=== PATIENT | female | born 1955 | race Caucasian/White ===

== ENCOUNTER 2020-12-07 07:15 | Emergency (ER) | payer MEDICARE, OTHER, SELFPAY ==
[2020-12-07] VITALS (21 sets, daily range): BP systolic 121–186; BP diastolic 56–89; PULSE 69–89; RESP 12–40; TEMP 36.6; O2SAT 92–100; BMI 43.1
--- NOTE | 2020-12-07 08:04 | ED_ITS ---
HPI - Abdominal Pain General Chief Complaint: Abdominal Pain Stated Complaint: stomach/side pain and nausea Time Seen by Provider: 12/07/20 07:46 Source: patient and family Mode of arrival: Ambulatory Limitations: no limitations History of Present Illness HPI narrative: Patient is a 65-year-old female who presents with ongoing abdominal pain history of diverticulitis with colectomy, for about the last 2 weeks. She says it is the pain is more of a cramp and spasm on the right side but she is persistently nauseated. She says the nausea is significantly worse in the morning and gradually gets better in the afternoon however yesterday she was nauseous all day. She says she was previously able to keep down some broth but yesterday she really was not able to eat or drink anything. She has not taken anything for pain says it is mostly just an occasional spasm for which she gets hot shower for. She denies any fever or chills. This does not feel like his her prior episodes of diverticulitis MD complaint: abdominal pain Onset (ago): week(s) (2) Pain Consistency: constant Severity scale (1-10): 6 Radiation: none Migration to: no migration Relieving factors: other (Hot shower) Related Data Previous Rx's Medication Instructions Recorded lorazepam 1 mg PO BID PRN #7 tab 12/07/20 metoclopramide HCl 10 mg PO Q6H PRN #20 tab 12/07/20 Allergies Allergy/AdvReac Type Severity Reaction Status Date / Time No Known Drug Allergies Allergy Verified 12/07/20 08:24 Review of Systems Review of Systems Narrative: GENERAL: Denies chills, fatigue, malaise, fever, sweats, travel HEENT: Denies sinus pain, ear pain, sore throat, difficulty swallowing, neck pain RESPIRATORY: Denies dyspnea, cough, wheezing, hemoptysis, sputum. CARDIOVASCULAR: Denies chest pain, palpitations, orthopnea, edema GASTROINTESTINAL: See HPI : Denies dysuria, frequency, incontinence, hematuria, urinary retention, flank pain. MUSCULOSKELETAL: Denies weakness, joint pain, or bony pain SKIN: No rash, no erythema, no pruritus NEUROLOGIC: Denies weakness, dizziness, headache, numbness, change in speech, confusion PSYCHIATRIC: No concerning psychosocial issues. 12 point review of systems is negative except for those stated above and HPI Patient History Medical History Diverticulitis Social History Smoking Status: Never smoker Smoking Status: Never smoker Substance Use Type: does not use Exam Initial Vital Signs Initial Vital Signs: Vital Signs Temperature 97.9 F 12/07/20 07:27 Pulse Rate 76 12/07/20 07:27 Respiratory Rate 18 12/07/20 07:27 Blood Pressure 179/89 H 12/07/20 07:27 Pulse Oximetry 98 12/07/20 07:27 GENERAL: Alert 65-year-old female appears uncomfortable, BMI 43 HEENT: Head atraumatic,EOMI, pupils reactive, face symmetric, moist mucous membranes CARDIOVASCULAR: Regular rate and rhythm without murmurs, rubs or gallops. RESPIRATORY: Breath sounds equal bilaterally, no wheezes rales or rhonchi. ABDOMEN: Soft, mild tenderness right lower and upper negative EXTREMITIES: Normal range of motion, no clubbing or edema. Neurovascularly intact NEUROLOGICAL: Alert and oriented x4.Normal gait and speech. SKIN: Warm, dry, no laceration, no petechiae, no rashes or lesions. Course Orders Ordered: ED Orders 12/07/20 10:08 US abdomen limited Stat 12/07/20 12:30 COVID19 - ADMIT ([employer] swab/PCR) Stat Discontinued Medications Sodium Chloride (Normal Saline 0.9%) 1,000 mls @ 1,000 mls/hr IV BOLUS ONE Stop: 12/07/20 09:04 Last Infusion: 12/07/20 12:12 Dose: 0 mls/hr Documented by: Admin: 12/07/20 08:24 Dose: 1,000 mls/hr Documented by: ISRAEL Lorazepam (Lorazepam 2 Mg/Ml Inj) 1 mg IV NOW ONE Stop: 12/07/20 12:14 Last Admin: 12/07/20 12:25 Dose: 1 mg Documented by: PRASHANT Metoclopramide HCl (Metoclopramide 10 Mg/2 Ml Inj) 10 mg IV NOW ONE Stop: 12/07/20 12:00 Last Admin: 12/07/20 12:25 Dose: 10 mg Documented by: PRASHANT Ondansetron HCl (Ondansetron 4 Mg/2 Ml Inj) 4 mg IV NOW ONE Stop: 12/07/20 08:06 Last Admin: 12/07/20 08:24 Dose: 4 mg Documented by: ISRAEL Ondansetron HCl (Ondansetron 4 Mg/2 Ml Inj) 4 mg IV NOW ONE Stop: 12/07/20 10:08 Last Admin: 12/07/20 10:35 Dose: 4 mg Documented by: ISRAEL Pantoprazole Sodium (Pantoprazole 40 Mg Vial) 40 mg IV NOW ONE Stop: 12/07/20 10:08 Last Admin: 12/07/20 10:35 Dose: 40 mg Documented by: ISRAEL Vital Signs Vital signs: Vital Signs - 8 hr 12/07/20 10:30 12/07/20 10:32 12/07/20 11:00 Pulse Rate 78 76 70 Respiratory Rate 40 H 21 17 Blood Pressure 143/62 H Pulse Oximetry 97 94 96 12/07/20 11:30 12/07/20 11:52 12/07/20 12:00 Pulse Rate 71 74 89 Respiratory Rate 13 27 H 26 H Blood Pressure 186/79 H Pulse Oximetry 100 100 99 12/07/20 12:30 12/07/20 12:47 12/07/20 13:00 Pulse Rate 82 83 72 Respiratory Rate 17 Blood Pressure 129/66 121/56 L Pulse Oximetry 94 97 92 12/07/20 13:30 12/07/20 14:00 12/07/20 14:30 Pulse Rate 86 70 75 Respiratory Rate Blood Pressure 129/64 123/58 L 123/62 Pulse Oximetry 98 97 97 MDM - Abdominal Pain Lab Data Attestation: I reviewed the patient's lab results. Result diagrams: 12/07/20 07:55 12/07/20 07:55 Labs: Lab Results 12/07/20 12/07/20 12/07/20 Range/Units 07:55 07:55 12:30 WBC 13.9 H (4.5-11.0) X10^3/uL RBC 4.78 (4.0-5.2) X10^6/uL Hgb 13.9 (12.0-16.0) g/dL Hct 41.9 (36-46) % MCV 87.7 (80-100) fL MCH 29.2 (26-34) PG MCHC 33.2 (30-36) % RDW 14.0 (11.6-14.8) % Plt Count 251 (150-400) X10^3/uL Neut % (Auto) 50.7 (50-75) % Lymph % (Auto) 39.8 (25-40) % Maverick % (Auto) 7.1 (3-14) % Eos % (Auto) 1.4 L (2-4) % Baso % (Auto) 1.0 (0-2) % Neut # (Auto) 7000 (5415-5057) /uL Lymph # (Auto) 5500 H (6890-0335) /uL Maverick # (Auto) 1000 H (0-900) /uL Eos # (Auto) 200 (0-450) /uL Baso # (Auto) 100 (0-100) /uL Sodium 137 (137-145) mmol/L Potassium 4.2 (3.4-5.1) mmol/L Chloride 102 (98-107) mmol/L Carbon Dioxide 27 (22-32) mmol/L BUN 23 H (7-17) mg/dL Creatinine 0.90 (0.52-1.04) mg/dL Estimated GFR > 60.0 (>60) mL/min BUN/Creatinine Ratio 25.6 H (6-22) Glucose 139 H (80-110) mg/dL Calcium 9.5 (8.4-10.2) mg/dL Total Bilirubin 1.0 (0.2-1.3) mg/dL AST 34 (14-36) IU/L ALT 25 (<35) IU/L Alkaline Phosphatase 65 (38-126) U/L Total Protein 7.9 (6.3-8.2) g/dL Albumin 4.5 (3.5-5.0) g/dL Globulin 3.4 (1.7-4.1) g/dL Albumin/Globulin Ratio 1.3 (1.0-2.8) Lipase 181 (23-300) U/L SARS-CoV-2 (PCR) Negative (Negative) Point of care testing: Urine Dip Bedside Urine Glucose Negative Bedside Urine Bilirubin - Negative Bedside Urine Ketone +/- 5 Urine Specific [place] 1.010 Bedside Urine Occult Blood - Negative Bedside Urine pH 6.0 Bedside Urine Protein - Negative Bedside Urine Urobilinogen +/- 1mg Bedside Urine Nitrite - Negative Bedside Urine Leukocytes - Negative Esterase Imaging Data CT scan - abdomen/pelvis: Radiologist's Impression: PROCEDURE: CT ABDOMEN PELVIS W CON INDICATIONS: right sided pain and nausea TECHNIQUE: After the administration of intravenous contrast, 5 mm thick sections acquired from the diaphragm to the symphysis. 5 mm coronal and sagittal reformats were acquired. For radiation dose reduction, the following was used: automated exposure control, adjustment of mA and/or kV according to patient size. COMPARISON: None. FINDINGS: Image quality: Excellent. ABDOMEN: Lung bases: Lung bases are clear. Heart size is normal. There is a small hiatal hernia. Solid organs: There is diffuse hypoattenuation of the liver compatible with fa tty infiltration. The gallbladder appears within normal limits without calcified gallstones. Biliary system is non-dilated. Pancreas enhances normally. No peripancreatic fat stranding or fluid collections. No pancreatic duct dilatation. The spleen is normal in size. There is nodular thickening of the left adrenal gland measuring up to 1.4 cm. Kidneys demonstrate no hydronephrosis. Multiple bilateral renal cysts are demonstrated. Peritoneum and bowel: Bowel loops demonstrate normal wall thickness and caliber. The appendix is not discretely visualized but there are no pericecal inflammatory changes to suggest appendicitis. There is colonic diverticulosis without acute diverticuli tis. No free fluid or air. Nodes and vessels: No retroperitoneal or mesenteric adenopathy by size criteria. Aorta and inferior vena cava are normal in size. Miscellaneous: No ventral hernias. PELVIS: Genitourinary: Bladder wall thickness is normal. The uterus and ovaries appear within normal size limits. Miscellaneous: No inguinal hernias or adenopathy. Bones: There are diffuse numerous small sclerotic foci throughout the visualized osseous structures. No vertebral body compression fractures. IMPRESSION: 1. No definite acute intra-abdominal abnormality to correlate with patient's right upper quadrant pain. 2. Numerous diffuse small sclerotic foci throughout the visualized osseous structures. The findings likely represent osteopoikilosis versus metastatic disease. Recommend correlation clinically and further evaluation with a bone scan if clinically in dicated. Dictated by: Giovanni Delgado M.D. on 12/07/2020 at 9:39 US - abdomen: Radiologist's Impression: PROCEDURE: US ABDOMEN LIMITED INDICATIONS: RIGHT UPPER QUADRANT PAIN TECHNIQUE: Real-time focused scanning was performed of the abdomen, with image documentation. COMPARISON: [facility], CT, CT ABDOMEN PELVIS W CON, 12/07/2020, 8:56. FINDINGS: The liver demonstrates normal size. The liver demonstrates generalized moderately increased echogenicity. This decreases ultrasound sensitivity for detection of hepatic masses. No findings of gallstones or sludge are seen. The gallbladder wall is not th ickened, measuring 3 mm or less. Apparent gallbladder wall adenomyomatosis can be seen. No specific pericholecystic fluid is seen. The sonographic Mead sign is negative. There is no biliary dilatation, the common bile duct measures 7 mm. No significant pancreatic abnormality is seen on these images. The right kidney demonstrates multiple cysts, with the largest seen along the mid kidney anteriorly measuring up to 8.5 cm. IMPRESSION: The gallbladder demonstrates a normal sonographic appearance. No biliary dilatation is seen. Apparent gallbladder wall adenomyomatosis is incidentally noted. Right renal cysts are incidentally noted. Dictated by: Jacob Currie M.D. on 12/07/2020 at 9:51 MDM Narrative Medical decision making narrative: The patient is having persistent dry heaving she is vomiting up some bile. states that she has had episodes of this cyclic vomiting but it has been about 4-5 be years. She said previously she has gotten Ativan. Abdominal CT and ultrasound are essentially negative blood work is overall reassuring for mild leukocytosis. She is given Ativan and Reglan and slept for quite a bit. Afterward she tolerated fluids and felt significantly better. At this time I will discharge her home with this she tablets of Ativan and Reglan and see how she does. If symptoms worsen then she will return to the ED Discharge Plan Departure Patient Disposition: Home Clinical Impression: Cyclic vomiting syndrome Instructions: DI for Abdominal Pain-Adult, DI for Vomiting -- Adult Activity Restrictions/Additional Instructions: *You have been diagnosed with cyclic vomiting *What to do: At this time I recommend he follow up with her primary care provider. He may require further testing. *Continue to take medications as directed Ativan 1 mg every 12 hours only if needed for anxiety or severe spasm Reglan 10 mg every 6 hours if needed for nausea or vomiting *Follow up with your primary care provider in 2-3 days *Return to ER if you should have worsening abdominal pain, inability to tolerate fluids or any new, worsening or concerning symptoms Prescriptions: New lorazepam 1 mg tablet 1 mg PO BID PRN (Reason: nausea and vomiting) Qty: 7 RF: 0 metoclopramide HCl 10 mg tablet 10 mg PO Q6H PRN (Reason: nausea and vomiting) Qty: 20 RF: 0 Referrals: Jordyn Cook FNP-BC [Primary Care Provider] -
[2020-12-07 08:11] LABS: Add Manual Diff / Slide Review NO; Basophils Absolute Auto 100 /uL (0-100); Eosinophils Absolute Auto 200 /uL (0-450); Eosinophils Percent Auto 1.4 % (2-4); Hematocrit 41.9 % (36-46); Hemoglobin 13.9 g/dL (12.0-16.0); Lymphocytes Absolute Auto 5500 /uL (1100-4500); Lymphocytes Percent Auto 39.8 % (25-40); Mean Corpuscular HGB Conc 33.2 % (30-36); Mean Corpuscular Hemoglobin 29.2 PG (26-34); Mean Corpuscular Volume 87.7 fL (80-100); Monocytes Absolute Auto 1000 /uL (0-900); Monocytes Percent Auto 7.1 % (3-14); Neutrophils Absolute Auto 7000 /uL (1500-7000); Neutrophils Percent Auto 50.7 % (50-75); Platelet Count 251 X10^3/uL (150-400); Red Blood Cell Count 4.78 X10^6/uL (4.0-5.2); White Blood Cell Count 13.9 X10^3/uL (4.5-11.0)
[2020-12-07] MEDS: SODIUM CHLORIDE 0.9% 1,000 ML 1000 ML IV (08:24)
[2020-12-07] MEDS: ONDANSETRON 4 MG/2 ML INJ IV ×2 (08:24→10:35)
[2020-12-07 08:31] LABS: Alanine Aminotransferase 25 IU/L (<35); Albumin 4.5 g/dL (3.5-5.0); Albumin Globulin Ratio 1.3 (1.0-2.8); Alkaline Phosphatase 65 U/L (38-126); Aspartate Aminotransferase 34 IU/L (14-36); BUN Creatinine Ratio 25.6 (6-22); Blood Urea Nitrogen 23 mg/dL (7-17); Calcium 9.5 mg/dL (8.4-10.2); Carbon Dioxide 27 mmol/L (22-32); Chloride 102 mmol/L (98-107); Estimated Glomerular Filt Rate > 60.0 mL/min (>60); Globulin 3.4 g/dL (1.7-4.1); Glucose 139 mg/dL (80-110); Lipase 181 U/L (23-300); Potassium 4.2 mmol/L (3.4-5.1); Sodium 137 mmol/L (137-145); Total Protein 7.9 g/dL (6.3-8.2)
[2020-12-07 08:42] LABS: HEMOLYSIS 108 (0-50)
--- NOTE | 2020-12-07 10:08 | DI.US.S_ITS ---
PROCEDURE: US ABDOMEN LIMITED INDICATIONS: RIGHT UPPER QUADRANT PAIN TECHNIQUE: Real-time focused scanning was performed of the abdomen, with image documentation. COMPARISON: [facility], CT, CT ABDOMEN PELVIS W CON, 12/07/2020, 8:56. FINDINGS: The liver demonstrates normal size. The liver demonstrates generalized moderately increased echogenicity. This decreases ultrasound sensitivity for detection of hepatic masses. No findings of gallstones or sludge are seen. The gallbladder wall is not thickened, measuring 3 mm or less. Apparent gallbladder wall adenomyomatosis can be seen. No specific pericholecystic fluid is seen. The sonographic Mead sign is negative. There is no biliary dilatation, the common bile duct measures 7 mm. No significant pancreatic abnormality is seen on these images. The right kidney demonstrates multiple cysts, with the largest seen along the mid kidney anteriorly measuring up to 8.5 cm. IMPRESSION: The gallbladder demonstrates a normal sonographic appearance. No biliary dilatation is seen. Apparent gallbladder wall adenomyomatosis is incidentally noted. Right renal cysts are incidentally noted. Dictated by: Jacob Currie M.D. on 12/07/2020 at 9:51 Approved by: Jacob Currie M.D. on 12/07/2020 at 9:53
[2020-12-07] MEDS: PANTOPRAZOLE 40 MG VIAL IV (10:35)
[2020-12-07] MEDS: METOCLOPRAMIDE 10 MG/2 ML INJ IV (12:25)
[2020-12-07] MEDS: LORazepam 2 MG/ML INJ 1 MG IV (12:25)
[2020-12-07 13:29] LABS: COVID19 - ADMIT (NP swab/PCR) Negative (Negative)
== END 2020-12-07 15:20 | disposition home or self-care (01) ==
PROVIDERS: Emergency Provider Emergency Medicine; PCP Nurse Practitioner Family
DX: R11.15 Cyclical vomiting syndrome unrelated to migraine (principal); R10.11 Right upper quadrant pain; R11.0 Nausea
CPT/HCPCS: 36415; 74177; 76705; 80053; 81003; 83690; 85025; 87635; 96361; 96374; 96375; 96376; 99284; C9803; C9113; J2060; J2405; J2765

== ENCOUNTER 2020-12-09 09:44 | Emergency (ER) | payer MEDICARE, OTHER, SELFPAY ==
[2020-12-09] VITALS (25 sets, daily range): BP systolic 102–205; BP diastolic 52–112; PULSE 66–91; RESP 13–28; TEMP 37; O2SAT 93–100; BMI 43.1
[2020-12-09 10:12] LABS: Add Manual Diff / Slide Review NO; Basophils Absolute Auto 100 /uL (0-100); Basophils Percent Auto 1.1 % (0-2); Eosinophils Absolute Auto 0 /uL (0-450); Eosinophils Percent Auto 0.4 % (2-4); Hematocrit 41.1 % (36-46); Hemoglobin 13.5 g/dL (12.0-16.0); Lymphocytes Absolute Auto 5500 /uL (1100-4500); Lymphocytes Percent Auto 45.4 % (25-40); Mean Corpuscular HGB Conc 32.8 % (30-36); Mean Corpuscular Hemoglobin 28.7 PG (26-34); Mean Corpuscular Volume 87.4 fL (80-100); Monocytes Absolute Auto 700 /uL (0-900); Neutrophils Absolute Auto 5700 /uL (1500-7000); Neutrophils Percent Auto 47.1 % (50-75); Platelet Count 259 X10^3/uL (150-400); Red Cell Distribution Width 13.7 % (11.6-14.8); White Blood Cell Count 12.1 X10^3/uL (4.5-11.0)
[2020-12-09 10:18] LABS: INR 1.1 (0.9-1.3); Prothrombin Time 12.2 SECONDS (10.1-12.7)
[2020-12-09 10:21] LABS: PTT Partial Thromboplastin Tim 31 SECONDS (26.4-36.2)
[2020-12-09 10:22] LABS: Alanine Aminotransferase 23 IU/L (<35); Albumin 4.2 g/dL (3.5-5.0); Albumin Globulin Ratio 1.3 (1.0-2.8); Alkaline Phosphatase 72 U/L (38-126); Aspartate Aminotransferase 28 IU/L (14-36); BUN Creatinine Ratio 31.1 (6-22); Bilirubin Total 0.7 mg/dL (0.2-1.3); Blood Urea Nitrogen 23 mg/dL (7-17); Calcium 9.7 mg/dL (8.4-10.2); Carbon Dioxide 27 mmol/L (22-32); Chloride 102 mmol/L (98-107); Estimated Glomerular Filt Rate > 60.0 mL/min (>60); Globulin 3.2 g/dL (1.7-4.1); Glucose 138 mg/dL (80-110); HEMOLYSIS < 15 (0-50); Lipase 196 U/L (23-300); Potassium 3.4 mmol/L (3.4-5.1); Sodium 138 mmol/L (137-145); Total Protein 7.4 g/dL (6.3-8.2)
--- NOTE | 2020-12-09 10:35 | ED_ITS ---
HPI - Abdominal Pain General Chief Complaint: Abdominal Pain Stated Complaint: vomitting Time Seen by Provider: 12/09/20 10:34 Source: patient, family () and old records reviewed Mode of arrival: Ambulatory Limitations: no limitations History of Present Illness HPI narrative: This is a 65-year-old female comes emergency department with what they describe as cyclic vomiting history. Patient has had episodes in the past and last for 5 years. She was seen here most recently on the . Patient her states she started having symptoms about a week ago, last she started having emesis abdominal pain throughout the entire day and was seen here on Thursday. They states that Ativan and Reglan often or very helpful for her symptoms. She was discharged home and half tablet of Ativan yesterday, Thursday at 10:00 a.m. and 3:00 p.m. and was able to tolerate orals. This morning she started feel more nauseated daily did half tablet states they probably should have been a full tablet and she began to have increasing emesis and abdominal pain. Patient describes her pain as generalized. She states it is in the typical pattern. She has not any fevers or chills. She has had emesis with bi le. She denies any hematemesis. She states she has not had a bowel movement in the last day or 2 but has been passing gas. She did state that she was constipated several days before, took Metamucil and had a good bowel movement. She has not had any new urinary symptoms such as dysuria, frequency or urgency but has noted that her urine output has been decreased. Patient does take lisinopril an additional medication for hypertension but states she has not been able to take it for the last several days. Patient has had a colon resection in 1997 for a sigmoid diverticulitis which they state was done more because she was an episode of cyclic vomiting and not because there was perforation or severe disease. She has also had hernia repair with mesh. Patient denies any allergies to medications. No tobacco, alcohol or illicit. He states she used to use marijuana 5 or 6 years ago but no longer uses this. Patient's primary care physician is Jordyn Cook. She is accompanied by her . Related Data Previous Rx's Medication Instructions Recorded lorazepam 1 mg PO BID PRN #7 tab 12/07/20 metoclopramide HCl 10 mg PO Q6H PRN #20 tab 12/07/20 lorazepam 1 mg PO TID PRN #10 tab 12/09/20 Allergies Allergy/AdvReac Type Severity Reaction Status Date / Time No Known Drug Allergies Allergy Verified 12/09/20 09:52 Review of Systems Review of Systems ROS Unobtainable: All systems reviewed & are unremarkable except as noted in HPI and below Patient History Medical History (Updated 12/09/20 @ 11:00 by Lucy Sumner DO) Diverticulitis Surgical History (Updated 12/09/20 @ 10:52 by Lucy Sumner DO) H/O hernia repair History of colectomy Social History Smoking Status: Never smoker Smoking Status: Never smoker alcohol intake frequency: 0-2 drinks per day Substance Use Type: does not use Exam Narrative Exam Narrative: GENERAL: Alert and oriented x three, female with a BMI of 43 who does not appear to feel well. HEENT: Head normocephalic, atraumatic, EOMI, pupils reactive, face symmetric, moist mucous membranes NECK: Supple, full range of motion CARDIOVASCULAR: Regular rate and rhythm without murmurs, rubs or gallops. RESPIRATORY: Breath sounds equal bilaterally, no wheezes rales or rhonchi. ABDOMEN: Soft, nontender. Normoactive bowel sounds all 4 quadrants. No guarding or rebound, rigidity, no mass, non-distended. : No CVA tenderness bilaterally. EXTREMITIES: Normal range of motion, no edema. 2+ pulses bilaterally. Neurovascularly intact NEUROLOGICAL: Cranial nerves II through XII grossly intact. Moving all extremities SKIN: Warm, dry, no petechiae, no rashes or lesions. Initial Vital Signs Initial Vital Signs: Vital Signs Temperature 98.6 F 12/09/20 09:50 Pulse Rate 79 12/09/20 09:50 Respiratory Rate 16 12/09/20 09:50 Blood Pressure 144/74 H 12/09/20 09:50 Pulse Oximetry 100 12/09/20 09:50 Course Orders Ordered: ED Orders 12/09/20 10:05 Complete Blood Count AUTO DIFF Stat Comprehensive Metabolic Panel Stat Lipase Stat Partial Thromboplastin Time Stat Prothrombin Time INR Stat Troponin I Stat EKG-12 Lead Stat 12/09/20 14:00 Urine Culture Stat Urine Microscopic Stat 12/09/20 15:02 COVID19 - ADMIT (INFECTIOUS DISEASES PHYSICIAN swab/PCR) Stat 12/09/20 15:03 XR acute abdomen series Stat Discontinued Medications Haloperidol (Haloperidol 5 Mg/Ml Vial) 2 mg IV NOW ONE Stop: 12/09/20 15:02 Last Admin: 12/09/20 15:12 Dose: 2 mg Documented by: KIMBERLY Hydralazine HCl (Hydralazine 20 Mg/Ml Vial) 10 mg IV NOW ONE Stop: 12/09/20 13:34 Last Admin: 12/09/20 13:41 Dose: 10 mg Documented by: KIMBERLY Sodium Chloride (Normal Saline 0.9%) 1,000 mls @ 1,000 mls/hr IV BOLUS ONE Stop: 12/09/20 11:46 Last Infusion: 12/09/20 15:13 Dose: 0 mls/hr Documented by: Admin: 12/09/20 10:56 Dose: 1,000 mls/hr Documented by: MARTINEZ Ketorolac Tromethamine (Ketorolac 30 Mg/Ml Vial) 15 mg IV NOW ONE Stop: 12/09/20 10:49 Last Admin: 12/09/20 10:55 Dose: 15 mg Documented by: MARTINEZ Lorazepam (Lorazepam 2 Mg/Ml Inj) 1 mg IV NOW ONE Stop: 12/09/20 10:48 Last Admin: 12/09/20 10:54 Dose: 1 mg Documented by: MARTINEZ Metoclopramide HCl (Metoclopramide 10 Mg/2 Ml Inj) 10 mg IV NOW ONE Stop: 12/09/20 10:48 Last Admin: 12/09/20 10:55 Dose: 10 mg Documented by: MARTINEZ Ondansetron HCl (Ondansetron 4 Mg/2 Ml Inj) 4 mg IV NOW ONE Stop: 12/09/20 13:33 Last Admin: 12/09/20 13:41 Dose: 4 mg Documented by: KIMBERLY Pantoprazole Sodium (Pantoprazole 40 Mg Vial) 40 mg IV NOW ONE Stop: 12/09/20 10:48 Last Admin: 12/09/20 10:55 Dose: 40 mg Documented by: MARTINEZ Reevaluation(s) Reevaluation #1: Patient is not actively vomiting. Her O2 did drop to the upper 80s after all of her medications. She does have a history of obstructive sleep apnea and uses a CPAP at home. She does not use oxygen typically but they state that this also happened last time she was here and received medications as well. Plan to continue to monitor patient and will re-evaluate she is sleepy but arouses easily to verbal stimuli. We also reviewed her labs as well as CT imaging from the 07 of December. Time: 11:37 Reevaluation #2: Patient ambulated to bathroom but has not had continued vomiting. She does continue to feel nauseated. Zofran IV and will recheck. Per patient has a few tablets of ativan at home. Time: 13:43 Reevaluation #3: Patient tried several ice chips and developed nausea and vomit ing again. Patient EKG was reviewed no prolonged QT and haldol 2mg IV ordered. Time: 15:04 Additional Reevaluation(s): 1716-patient was able tolerate some oral fluids here in the department. She feels comfortable returning home at this time. Patient only has 2 or 3 tablets of Ativan left so was given additional short-term p rescription. Discussed to slowly advance her diet and she has been well hydrated here in the department they can start to advance more tomorrow. Vital Signs Vital signs: Vital Signs - 8 hr 12/09/20 11:00 12/09/20 11:30 12/09/20 12:00 Pulse Rate 73 70 66 Respiratory Rate 15 26 H 17 Blood Pressure Pulse Oximetry 99 96 100 12/09/20 12:30 12/09/20 12:31 12/09/20 13:00 Pulse Rate 66 72 79 Respiratory Rate 18 13 16 Blood Pressure 173/79 H 196/94 H Pulse Oximetry 98 97 100 12/09/20 13:31 12/09/20 13:41 12/09/20 13:46 Pulse Rate 80 91 H 75 Respiratory Rate 16 Blood Pressure 196/94 H 115/55 L Pulse Oximetry 98 98 12/09/20 14:00 12/09/20 14:30 12/09/20 14:58 Pulse Rate 83 86 77 Respiratory Rate 27 H 20 Blood Pressure 117/55 L 121/57 L 121/57 L Pulse Oximetry 96 99 12/09/20 15:00 12/09/20 15:30 12/09/20 15:34 Pulse Rate 73 82 78 Respiratory Rate 14 19 17 Blood Pressure 139/59 L 130/62 Pulse Oximetry 99 96 97 12/09/20 16:00 12/09/20 16:30 12/09/20 16:31 Pulse Rate 86 91 H 89 Respiratory Rate 23 28 H 17 Blood Pressure 120/55 L 102/52 L Pulse Oximetry 93 95 96 12/09/20 17:00 12/09/20 17:09 12/09/20 17:35 Pulse Rate 86 86 83 Respiratory Rate 16 18 16 Blood Pressure 111/55 L 111/55 L Pulse Oximetry 95 93 96 MDM - Abdominal Pain Lab Data Attestation: I reviewed the patient's lab results. Result diagrams: 12/09/20 10:05 12/09/20 10:05 Labs: Lab Results 12/09/20 12/09/20 12/09/20 Range/Units 10:05 10:05 10:05 WBC 12.1 H (4.5-11.0) X10^3/uL RBC 4.70 (4.0-5.2) X10^6/uL Hgb 13.5 (12.0-16.0) g/dL Hct 41.1 (36-46) % MCV 87.4 (80-100) fL MCH 28.7 (26-34) PG MCHC 32.8 (30-36) % RDW 13.7 (11.6-14.8) % Plt Count 259 (150-400) X10^3/uL Neut % (Auto) 47.1 L (50-75) % Lymph % (Auto) 45.4 H (25-40) % [place] % (Auto) 6.0 (3-14) % Eos % (Auto) 0.4 L (2-4) % Baso % (Auto) 1.1 (0-2) % Neut # (Auto) 5700 (1868-8898) /uL Lymph # (Auto) 5500 H (2128-2115) /uL [place] # (Auto) 700 (0-900) /uL Eos # (Auto) 0 (0-450) /uL Baso # (Auto) 100 (0-100) /uL PT 12.2 (10.1-12.7) SECONDS INR 1.1 (0.9-1.3) APTT 31 (26.4-36.2) SECONDS Sodium 138 (137-145) mmol/L Potassium 3.4 (3.4-5.1) mmol/L Chloride 102 (98-107) mmol/L Carbon Dioxide 27 (22-32) mmol/L BUN 23 H (7-17) mg/dL Creatinine 0.74 (0.52-1.04) mg/dL Estimated GFR > 60.0 (>60) mL/min BUN/Creatinine Ratio 31.1 H (6-22) Glucose 138 H (80-110) mg/dL Calcium 9.7 (8.4-10.2) mg/dL Total Bilirubin 0.7 (0.2-1.3) mg/dL AST 28 (14-36) IU/L ALT 23 (<35) IU/L Alkaline Phosphatase 72 (38-126) U/L Troponin I (0.01-0.034) ng/mL Total Protein 7.4 (6.3-8.2) g/dL Albumin 4.2 (3.5-5.0) g/dL Globulin 3.2 (1.7-4.1) g/dL Albumin/Globulin Ratio 1.3 (1.0-2.8) Lipase 196 (23-300) U/L Urine RBC (0-5/HPF) Urine WBC (0-5/HPF) Ur Squamous Epith Cells (0-5/HPF) Amorphous Sediment Urine Bacteria (None) Urine Mucus (Negative) Ur Culture Indicated? SARS-CoV-2 (PCR) (Negative) 12/09/20 12/09/20 12/09/20 Range/Units 10:05 14:00 15:02 WBC (4.5-11.0) X10^3/uL RBC (4.0-5.2) X10^6/uL Hgb (12.0-16.0) g/dL Hct (36-46) % MCV (80-100) fL MCH (26-34) PG MCHC (30-36) % RDW (11.6-14.8) % Plt Count (150-400) X10^3/uL Neut % (Auto) (50-75) % Lymph % (Auto) (25-40) % [place] % (Auto) (3-14) % Eos % (Auto) (2-4) % Baso % (Auto) (0-2) % Neut # (Auto) (7015-8068) /uL Lymph # (Auto) (8466-2301) /uL [place] # (Auto) (0-900) /uL Eos # (Auto) (0-450) /uL Baso # (Auto) (0-100) /uL PT (10.1-12.7) SECONDS INR (0.9-1.3) APTT (26.4-36.2) SECONDS Sodium (137-145) mmol/L Potassium (3.4-5.1) mmol/L Chloride (98-107) mmol/L Carbon Dioxide (22-32) mmol/L BUN (7-17) mg/dL Creatinine (0.52-1.04) mg/dL Estimated GFR (>60) mL/min BUN/Creatinine Ratio (6-22) Glucose (80-110) mg/dL Calcium (8.4-10.2) mg/dL Total Bilirubin (0.2-1.3) mg/dL AST (14-36) IU/L ALT (<35) IU/L Alkaline Phosphatase (38-126) U/L Troponin I < 0.012 (0.01-0.034) ng/mL Total Protein (6.3-8.2) g/dL Albumin (3.5-5.0) g/dL Globulin (1.7-4.1) g/dL Albumin/Globulin Ratio (1.0-2.8) Lipase (23-300) U/L Urine RBC 0-1/hpf (0-5/HPF) Urine WBC 0-1/hpf (0-5/HPF) Ur Squamous Epith Cells 0-1 /hpf (0-5/HPF) Amorphous Sediment 1+ Urine Bacteria Many (>30) H (None) Urine Mucus 1+ H (Negative) Ur Culture Indicated? Specimen cultured SARS-CoV-2 (PCR) Negative (Negative) Point of care testing: Point of Care Testing Test Results Negative Urine Dip Bedside Urine Glucose Negative Bedside Urine Bilirubin - Negative Bedside Urine Ketone + 15 Urine Specific [place] 1.025 Bedside Urine Occult Blood - Negative Bedside Urine pH 6.0 Bedside Urine Protein + 30 Bedside Urine Urobilinogen +/- 1mg Bedside Urine Nitrite - Negative Bedside Urine Leukocytes - Negative Esterase Imaging Data Abdominal x-ray: Radiologist's Impression: [place] [address] [place] [id number] ReportSigned Patient: Amee Glover AMR#: [id number]: 5Acct:[id number]/Sex: 65 / FDate of Service: 12/09/20Loc: EDAccession Number: [id number] Procedure: XR acute abdomen series Ordering Provider: Lucy Sumner D.O. PROCEDURE: XR ACUTE ABDOMEN SERIES INDICATIONS: n/v hx of cyclic vomiting. TECHNIQUE: One view chest and two views of the abdomen were acquired. COMPARISON: [facility], US, US ABDOMEN LIMITED, 12/07/2020, 10:18. [facility], CT, CT ABDOMEN PELVIS W CON, 12/07/2020, 8:56. FINDINGS: Surgical changes and devices: None. Chest: An incomplete inspiratory result is noted, causing a crowded appearance to the lung markings. No focal infiltrates are seen. No pneumothorax or significant pleural effusions are seen. Atherosclerotic calcification of the aortic arch is noted. Heart size is normal. No pleural effusions. No pneumoperitoneum. Abdomen: Bowel gas pattern is normal. No suspicious calcifications. Visualized solid organ contours appear normal. Bones: No suspicious bony lesions. Age-appropriate bony degenerative changes are seen. IMPRESSION: A nonobstructive bowel gas pattern is seen. If clinically appropriate, please consider a repeat plain film study or a reviewed follow-up CT of the abdomen and pelvis, if the patient's symptoms persist or worsen. Dictated by: Jacob Currie M.D. on 12/09/2020 at 14:25 Approved by: Jacob Currie M.D. on 12/09/2020 at 14:26 ECG Data Attestation: I personally reviewed and interpreted this ECG as follows: Prior ECG tracings: not available for review Interpretation: Sinus rhythm rate of 70 AR 162 QRS 80 QTC of 401. No acute ST changes appreciated. No prior EKGs available [facility] Narrative Medical decision making narrative: This is a 65-year-old female comes in with history of cyclic vomiting which she states has reoccurred. She was seen here on the her labs today show slight improvement her white count, elevation in lymphocytes, coags are normal with a BUN of 23 which is consistent with 2 days prior. Patient's renal function and electrolytes are normal. Glucose is 138. Patient's abdominal labs do not show any acute elevations. Patient's EKG shows sinus rhythm without acute changes appreciated. Patient does have a CT as well as ultrasound from the 2 days ago with fatty liver infiltration noted. Th ere is some nodule thickening of the left adrenal gland and multiple bilateral renal cysts. There was diverticulosis but no signs of diverticulitis and no abdominal wall thickness or changes. Aorta and IVC were normal in size it was noted there were numerous diffuse small sclerotic foci an osseous structures this could represent osteopoikilosis versus metastatic disease and recommended clinical correlation versus bone scan. Ultrasound also noted gallbladder wall adenomyomatosis which can be seen in chronically inflamed gallbladder. Discussed with patient and her they do not feel the need repeat imaging today and this is very typical symptoms with no new changes. Patient was given fluids, Ativan and Reglan as well as Protonix and Toradol for pain control. Upon repeat evaluation patient's emesis had improved although she is quite nauseated. She developed nausea vomiting again after oral challenge. Patient received Haldol here in the department. She had improvement with this medication is able tolerate oral challenge and would like to return home. Discharge Plan Departure Patient Disposition: Home Clinical Impression: Cyclical vomiting Activity Restrictions/Additional Instructions: Call to follow up with your physician. Your imaging from 12/07/20 did show some chronic inflammation of the gallbladder which does not require any specific follow-up and may be related to her chronic cyclic vomiting symptoms. Your CT imaging and did note some fatty infiltration of the liver as well as some thickening of the adrenal gland and small diffuse changes throughout the bony structures. I which sure this information with your primary care, they can review here past medical history and decide if a bone scan would be appropriate. I would only do sips very minimal fluids today and try to advance your diet tomorrow with clear liquids if this is successful you may try to add solids in the afternoon. You may continue to take Ativan and/or reglan as needed for nausea. If you find the Ativan is more helpful. You may take 1 tablet every 6-8 hours as needed. Prescription sent to [email or web address] in [place]. Please return for fevers, persistent vomiting, lightheadedness or passing out, severe worsening abdominal, flank or back pain, black or bloody stools, inability urinate or other new or concerning symptoms. Prescriptions: New lorazepam 1 mg tablet 1 mg PO TID PRN (Reason: nausea and vomiting) Qty: 10 RF: 0 No Action lorazepam 1 mg tablet 1 mg PO BID PRN (Reason: nausea and vomiting) Qty: 7 RF: 0 metoclopramide HCl 10 mg tablet 10 mg PO Q6H PRN (Reason: nausea and vomiting) Qty: 20 RF: 0 Referrals: Jordyn Cook FNP-BC [Primary Care Provider] -
[2020-12-09] MEDS: LORazepam 2 MG/ML INJ 1 MG IV (10:54)
[2020-12-09] MEDS: KETOROLAC 30 MG/ML VIAL 15 MG IV (10:55)
[2020-12-09] MEDS: PANTOPRAZOLE 40 MG VIAL IV (10:55)
[2020-12-09] MEDS: METOCLOPRAMIDE 10 MG/2 ML INJ IV (10:55)
[2020-12-09] MEDS: SODIUM CHLORIDE 0.9% 1,000 ML 1000 ML IV (10:56)
--- NOTE | 2020-12-09 11:19 | PC.NURSE ---
patient had a drop in her o2 saturation to 88% on RA with a good pleth on the monitor. I replaced the o2 monitor from the clamp style to the sticky style. She has red nail niuean on. Her O2 pleth improved to 100%. She has a history of sleep apnea and uses a CPAP at home.
[2020-12-09] MEDS: HYDRALAZINE 20 MG/ML VIAL 10 MG IV (13:41)
[2020-12-09] MEDS: ONDANSETRON 4 MG/2 ML INJ IV (13:41)
[2020-12-09 14:14] LABS: Amorphous Sediment Urine 1+; Bacteria Urine Many (>30); Culture Indicated Urine Specimen Cultured; Mucus Urine 1+ (Negative); RBC Urine 0-1/HPF (0-5/HPF); Squamous Epithelial Cell Urine 0-1 /HPF (0-5/HPF); WBC Urine 0-1/HPF (0-5/HPF)
[2020-12-09 14:21] LABS: Troponin I < 0.012 ng/mL (0.01-0.034)
--- NOTE | 2020-12-09 15:03 | DI.RAD.S_ITS ---
PROCEDURE: XR ACUTE ABDOMEN SERIES INDICATIONS: n/v hx of cyclic vomiting. TECHNIQUE: One view chest and two views of the abdomen were acquired. COMPARISON: [facility], US, US ABDOMEN LIMITED, 12/07/2020, 10:18. Merged With [facility], CT, CT ABDOMEN PELVIS W CON, 12/07/2020, 8:56. FINDINGS: Surgical changes and devices: None. Chest: An incomplete inspiratory result is noted, causing a crowded appearance to the lung markings. No focal infiltrates are seen. No pneumothorax or significant pleural effusions are seen. Atherosclerotic calcification of the aortic arch is noted. Heart size is normal. No pleural effusions. No pneumoperitoneum. Abdomen: Bowel gas pattern is normal. No suspicious calcifications. Visualized solid organ contours appear normal. Bones: No suspicious bony lesions. Age-appropriate bony degenerative changes are seen. IMPRESSION: A nonobstructive bowel gas pattern is seen. If clinically appropriate, please consider a repeat plain film study or a reviewed follow-up CT of the abdomen and pelvis, if the patient's symptoms persist or worsen. Dictated by: Jacob Currie M.D. on 12/09/2020 at 14:25 Approved by: Jacob Currie M.D. on 12/09/2020 at 14:26
[2020-12-09] MEDS: HALOPERIDOL 5 MG/ML VIAL 2 MG IV (15:12)
[2020-12-09 16:01] LABS: COVID19 - ADMIT (NP swab/PCR) Negative (Negative)
== END 2020-12-09 17:37 | disposition home or self-care (01) ==
PROVIDERS: Emergency Provider Emergency Medicine; PCP Nurse Practitioner Family
DX: R11.15 Cyclical vomiting syndrome unrelated to migraine (principal); R10.9 Unspecified abdominal pain; Z20.822 Contact with and (suspected) exposure to COVID-19
CPT/HCPCS: 36415; 74022; 80053; 81003; 81015; 81025; 83690; 84484; 85025; 85610; 85730; 87077; 87086; 87186; 87635; 93005; 96361; 96374; 96375; 99284; C9803; C9113; J0360; J1630; J1885; J2060; J2405; J2765

== ENCOUNTER 2020-12-16 07:14 | Emergency (ER) | payer MEDICARE, OTHER, SELFPAY ==
[2020-12-16] VITALS (8 sets, daily range): BP systolic 125–140; BP diastolic 60–74; PULSE 62–81; RESP 18; TEMP 36.6; O2SAT 91–97; BMI 42.0
--- NOTE | 2020-12-16 07:48 | ED.NAVMDI ---
HPI - Nausea/Vomiting/Diarrhea General Chief complaint: Nausea/Vomiting/Diarrhea Stated complaint: vomitting Time Seen by Provider: 12/16/20 07:37 Source: patient and family Mode of arrival: Ambulatory Limitations: no limitations History of Present Illness HPI Narrative: Patient brought in by from home. Complains of intractable vomiting. Seen here twice in the past 7 days. Just finishing [facility] for treatment for UTI. Patient worked up extensively back in 1997 with [facility] with [facility]enterology. Endoscopy is done. Patient and state no definitive diagnosis. Has cyclical vomiting. Has been doing well for the past 5 years until recently last 3 weeks. Symptoms have returned. Patient had x-rays ultrasounds and CT scans here in the last 7 days as well as negative for COVID. Related Data Previous Rx's Medication Instructions Recorded lorazepam 1 mg PO BID PRN #7 tab 12/07/20 metoclopramide HCl 10 mg PO Q6H PRN #20 tab 12/07/20 lorazepam 1 mg PO TID PRN #10 tab 12/09/20 promethazine 25 mg VA Q6H PRN #12 ea 12/16/20 Allergies Allergy/AdvReac Type Severity Reaction Status Date / Time No Known Drug Allergies Allergy Verified 12/16/20 07:30 Review of Systems Review of Systems Narrative: GENERAL: Denies chills, fatigue, malaise, fever, sweats. HEENT: Denies sinus pain, ear pain, sore throat RESPIRATORY: Denies dyspnea, cough CARDIOVASCULAR: Denies chest pain, palpitations GASTROINTESTINAL: Complains nausea, vomiting, abdominal pain : Denies dysuria, frequency, hematuria MUSCULOSKELETAL: denies muscle or bony pain SKIN: Denies rash, skin lesions NEUROLOGIC: Denies weakness, numbness ROS Unobtainable: All systems reviewed & are unremarkable except as noted in HPI and below Patient History Medical History Diverticulitis Surgical History H/O hernia repair History of colectomy Social History Smoking Status: Never smoker Smoking Status: Never smoker alcohol intake frequency: 0-2 drinks per day Substance Use Type: does not use Exam Narrative Exam Narrative: GENERAL: in no distress, not toxic not dyspneic HEAD: Normocephalic. EYES: Pupils equal round No scleral icterus. No injection no discharge ENT: Mucous membranes moist. NECK: Trachea midline. CARDIOVASCULAR: Regular rate and rhythm without murmurs RESPIRATORY: Clear to auscultation. Breath sounds equal bilaterally. No wheezes, rales, or rhonchi. GASTROINTESTINAL: Abdomen soft, non-tender EXTREMITIES: No gross deformities. BACK: No flank tenderness. NEURO: AOx4. SKIN: Warm and dry PSYCH: Not anxious, is cooperative Initial Vital Signs Initial Vital Signs: Vital Signs Pulse Rate 80 12/16/20 07:24 Blood Pressure 139/74 12/16/20 07:24 Pulse Oximetry 95 12/16/20 07:24 Course Orders Ordered: ED Orders 12/16/20 09:10 Complete Blood Count AUTO DIFF Stat Comprehensive Metabolic Panel Stat Lipase Stat Discontinued Medications Sodium Chloride (Normal Saline 0.9%) 1,000 mls @ 1,000 mls/hr IV BOLUS ONE Stop: 12/16/20 08:47 Last Infusion: 12/16/20 09:07 Dose: 0 mls/hr Documented by: Admin: 12/16/20 08:03 Dose: 1,000 mls/hr Documented by: DG Lorazepam (Lorazepam 2 Mg/Ml Inj) 1 mg IV NOW ONE Stop: 12/16/20 07:49 Last Admin: 12/16/20 08:03 Dose: 1 mg Documented by: DG Reevaluation(s) Reevaluation #1: Patient resting comfortably. No nausea vomiting or abdominal pain. [place] much better after Ativan IV. As well as IV fluids. Reviewed results with patient and . They agree at this time no CT scan imaging or imaging as she has had 7 days ago. Labs essentially unchanged compared to last 2 visits. White cell count likely due to hydration status. As well as demargination from vomiting. Patient does not have promethazine at home. Has not had it in many years. Time: 09:56 Vital Signs Vital signs: Vital Signs - 8 hr 12/16/20 07:24 12/16/20 07:30 12/16/20 08:00 Temperature 97.9 F Pulse Rate 80 76 71 Respiratory Rate 18 Blood Pressure 139/74 140/73 127/69 Pulse Oximetry 95 94 92 12/16/20 08:30 12/16/20 09:00 12/16/20 09:30 Temperature Pulse Rate 63 62 66 Respiratory Rate Blood Pressure 131/60 125/60 134/63 Pulse Oximetry 91 95 96 12/16/20 10:00 12/16/20 10:01 Temperature Pulse Rate 65 69 Respiratory Rate Blood Pressure Pulse Oximetry 97 97 MDM - Nausea/Vomiting/Diarrhea Differential Diagnosis Differential diagnosis: Likely dehydration and other (Gastroparesis/cyclic vomiting) Medical Records Attestation: I reviewed the patient's medical records. Lab Data Attestation: I reviewed the patient's lab results. Result diagrams: 12/16/20 09:10 12/16/20 09:10 Labs: Lab Results 12/16/20 12/16/20 Range/Units 09:10 09:10 WBC 14.1 H (4.5-11.0) X10^3/uL RBC 4.60 (4.0-5.2) X10^6/uL Hgb 13.4 (12.0-16.0) g/dL Hct 40.7 (36-46) % MCV 88.6 (80-100) fL MCH 29.1 (26-34) PG MCHC 32.9 (30-36) % RDW 13.8 (11.6-14.8) % Plt Count 203 (150-400) X10^3/uL Neut % (Auto) 44.4 L (50-75) % Lymph % (Auto) 44.2 H (25-40) % [place] % (Auto) 8.8 (3-14) % Eos % (Auto) 1.4 L (2-4) % Baso % (Auto) 1.2 (0-2) % Neut # (Auto) 6300 (0044-8521) /uL Lymph # (Auto) 6200 H (1586-5183) /uL [place] # (Auto) 1200 H (0-900) /uL Eos # (Auto) 200 (0-450) /uL Baso # (Auto) 200 H (0-100) /uL Plt Morphology Comment RBC Morphology See below Sodium 140 (137-145) mmol/L Potassium 3.5 (3.4-5.1) mmol/L Chloride 105 (98-107) mmol/L Carbon Dioxide 29 (22-32) mmol/L BUN 27 H (7-17) mg/dL Creatinine 0.66 (0.52-1.04) mg/dL Estimated GFR > 60.0 (>60) mL/min BUN/Creatinine Ratio 40.9 H (6-22) Glucose 120 H (80-110) mg/dL Calcium 8.8 (8.4-10.2) mg/dL Total Bilirubin 0.6 (0.2-1.3) mg/dL AST 24 (14-36) IU/L ALT 21 (<35) IU/L Alkaline Phosphatase 52 (38-126) U/L Total Protein 6.8 (6.3-8.2) g/dL Albumin 3.8 (3.5-5.0) g/dL Globulin 3.0 (1.7-4.1) g/dL Albumin/Globulin Ratio 1.3 (1.0-2.8) Lipase 121 (23-300) U/L Imaging Data CT scan - abdomen/pelvis: Radiologist's Impression: [address] [id number] Scan ReportSigned Patient: Amee Glover AMR#: [id number]: 5Acct:[id number]/Sex: 65 / FDate of Service: 12/07/20Loc: EDAccession Number: [id number] Procedure: CT abdomen pelvis w con Ordering Provider: Bernadette Combs D.O. PROCEDURE: CT ABDOMEN PELVIS W CON INDICATIONS: right sided pain and nausea TECHNIQUE: After the administration of intravenous contrast, 5 mm thick sections acquired from the diaphragm to the symphysis. 5 mm coronal and sagittal reformats were acquired. For radiation dose reduction, the following was used: automated exposure control, adjustment of mA and/or kV according to patient size. COMPARISON: None. FINDINGS: Image quality: Excellent. ABDOMEN: Lung bases: Lung bases are clear. Heart size is normal. There is a small hiatal hernia. Solid organs: There is diffuse hypoattenuation of the liver compatible with fatty infiltration. The gallbladder appears within normal limits without calcified gallstones. Biliary system is non-dilated. Pancreas enhances normally. No peripancreatic fat stranding or fluid collections. No pancreatic duct dilatation. The spleen is normal in size. There is nodular thickening of the left adrenal gland measuring up to 1.4 cm. Kidneys demonstrate no hydronephrosis. Multiple bilateral renal cysts are demonstrated. Peritoneum and bowel: Bowel loops demonstrate normal wall thickness and caliber. The appendix is not discretely visualized but there are no pericecal inflammatory changes to suggest appendicitis. There is colonic diverticulosis without acute diverticulitis. No free fluid or air. Nodes and vessels: No retroperitoneal or mesenteric adenopathy by size criteria. Aorta and inferior vena cava are normal in size. Miscellaneous: No ventral hernias. PELVIS: Genitourinary: Bladder wall thickness is normal. The uterus and ovaries appear within normal size limits. Miscellaneous: No inguinal hernias or adenopathy. Bones: There are diffuse numerous small sclerotic foci throughout the visualized osseous structures. No vertebral body compression fractures. IMPRESSION: 1. No definite acute intra-abdominal abnormality to correlate with patient's right upper quadrant pain. 2. Numerous diffuse small sclerotic foci throughout the visualized osseous structures. The findings likely represent osteopoikilosis versus metastatic disease. Recommend correlation clinically and further evaluation with a bone scan if clinically indicated. Dictated by: Giovanni Delgado M.D. on 12/07/2020 at 9:39 Approved by: Giovanni Delgado M.D. on 12/07/2020 at 9:45 US - abdomen: Radiologist's Impression: [address] [id number] ReportSigned Patient: Amee Glover AMR#: [id number]: 5Acct:[id number]/Sex: 65 / FDate of Service: 12/07/20Loc: EDAccession Number: [id number] Procedure: US abdomen limited Ordering Provider: Bernadette Combs D.O. PROCEDURE: US ABDOMEN LIMITED INDICATIONS: RIGHT UPPER QUADRANT PAIN TECHNIQUE: Real-time focused scanning was performed of the abdomen, with image documentation. COMPARISON: [facility], CT, CT ABDOMEN PELVIS W CON, 12/07/2020, 8:56. FINDINGS: The liver demonstrates normal size. The liver demonstrates generalized moderately increased echogenicity. This decreases ultrasound sensitivity for detection of hepatic masses. No findings of gallstones or sludge are seen. The gallbladder wall is not thickened, measuring 3 mm or less. Apparent gallbladder wall adenomyomatosis can be seen. No specific pericholecystic fluid is seen. The sonographic Mead sign is negative. There is no biliary dilatation, the common bile duct measures 7 mm. No significant pancreatic abnormality is seen on these images. The right kidney demonstrates multiple cysts, with the largest seen along the mid kidney anteriorly measuring up to 8.5 cm. IMPRESSION: The gallbladder demonstrates a normal sonographic appearance. No biliary dilatation is seen. Apparent gallbladder wall adenomyomatosis is incidentally noted. Right renal cysts are incidentally noted. Dictated by: Jacob Currie M.D. on 12/07/2020 at 9:51 Approved by: Jacob Currie M.D. on 12/07/2020 at 9:53 Chest abdominal x-ray: Radiologist's Impression: [address] [id number] ReportSigned Patient: Amee Glover AMR#: [id number]: 5Acct:[id number]/Sex: 65 / FDate of Service: 12/09/20Loc: EDAccession Number: [id number] Procedure: XR acute abdomen series Ordering Provider: Lucy Sumner D.O. PROCEDURE: XR ACUTE ABDOMEN SERIES INDICATIONS: n/v hx of cyclic vomiting. TECHNIQUE: One view chest and two views of the abdomen were acquired. COMPARISON: [facility], US, US ABDOMEN LIMITED, 12/07/2020, 10:18. [facility], CT, CT ABDOMEN PELVIS W CON, 12/07/2020, 8:56. FINDINGS: Surgical changes and devices: None. Chest: An incomplete inspiratory result is noted, causing a crowded appearance to the lung markings. No focal infiltrates are seen. No pneumothorax or significant pleural effusions are seen. Atherosclerotic calcification of the aortic arch is noted. Heart size is normal. No pleural effusions. No pneumoperitoneum. Abdomen: Bowel gas pattern is normal. No suspicious calcifications. Visualized solid organ contours appear normal. Bones: No suspicious bony lesions. Age-appropriate bony degenerative changes are seen. IMPRESSION: A nonobstructive bowel gas pattern is seen. If clinically appropriate, please consider a repeat plain film study or a reviewed follow-up CT of the abdomen and pelvis, if the patient's symptoms persist or worsen. Dictated by: Jacob Currie M.D. on 12/09/2020 at 14:25 Approved by: Jacob Currie M.D. on 12/09/2020 at 14:26 MDM Narrative Medical decision making narrative: Appropriate for discharge home. Review respiratory is ulcer with patient and . Essentially unchanged from a week ago. Likely to hydration status and demargination from vomiting. No fever. Patient needs referral from family doctor for Gastroenterology for possible endoscopy again or referral to GI motility Clinic/workup for gastroparesis Discharge Plan Departure Patient Disposition: Home Clinical Impression: Cyclic vomiting syndrome Instructions: DI for Vomiting -- Adult Activity Restrictions/Additional Instructions: See your family doctor and this week for recheck and referral for Gastroenterology. Recommend seeing specialty services for possible gastroparesis evaluation. Prescription for promethazine has been sent to [facility]. Return if worse if any questions or concerns Prescriptions: New promethazine 25 mg suppository 25 mg VA Q6H PRN (Reason: nausea and vomiting) Qty: 12 RF: 0 No Action lorazepam 1 mg tablet 1 mg PO BID PRN (Reason: nausea and vomiting) Qty: 7 RF: 0 metoclopramide HCl 10 mg tablet 10 mg PO Q6H PRN (Reason: nausea and vomiting) Qty: 20 RF: 0 lorazepam 1 mg tablet 1 mg PO TID PRN (Reason: nausea and vomiting) Qty: 10 RF: 0 Referrals: Jordyn Cook FNP-BC [Primary Care Provider] -
[2020-12-16] MEDS: LORazepam 2 MG/ML INJ 1 MG IV (08:03)
[2020-12-16] MEDS: SODIUM CHLORIDE 0.9% 1,000 ML 1000 ML IV (08:03)
[2020-12-16 09:32] LABS: Alanine Aminotransferase 21 IU/L (<35); Albumin 3.8 g/dL (3.5-5.0); Albumin Globulin Ratio 1.3 (1.0-2.8); Alkaline Phosphatase 52 U/L (38-126); Aspartate Aminotransferase 24 IU/L (14-36); BUN Creatinine Ratio 40.9 (6-22); Bilirubin Total 0.6 mg/dL (0.2-1.3); Blood Urea Nitrogen 27 mg/dL (7-17); Calcium 8.8 mg/dL (8.4-10.2); Carbon Dioxide 29 mmol/L (22-32); Chloride 105 mmol/L (98-107); Estimated Glomerular Filt Rate > 60.0 mL/min (>60); Glucose 120 mg/dL (80-110); HEMOLYSIS 38 (0-50); Lipase 121 U/L (23-300); Potassium 3.5 mmol/L (3.4-5.1); Sodium 140 mmol/L (137-145); Total Protein 6.8 g/dL (6.3-8.2)
[2020-12-16 09:34] LABS: Basophils Absolute Auto 200 /uL (0-100); Basophils Percent Auto 1.2 % (0-2); Eosinophils Absolute Auto 200 /uL (0-450); Eosinophils Percent Auto 1.4 % (2-4); Hematocrit 40.7 % (36-46); Hemoglobin 13.4 g/dL (12.0-16.0); Lymphocytes Absolute Auto 6200 /uL (1100-4500); Lymphocytes Percent Auto 44.2 % (25-40); Mean Corpuscular HGB Conc 32.9 % (30-36); Mean Corpuscular Hemoglobin 29.1 PG (26-34); Mean Corpuscular Volume 88.6 fL (80-100); Monocytes Absolute Auto 1200 /uL (0-900); Monocytes Percent Auto 8.8 % (3-14); Neutrophils Absolute Auto 6300 /uL (1500-7000); Neutrophils Percent Auto 44.4 % (50-75); Platelet Count 203 X10^3/uL (150-400); Red Cell Distribution Width 13.8 % (11.6-14.8); White Blood Cell Count 14.1 X10^3/uL (4.5-11.0)
[2020-12-16 09:37] LABS: Add Manual Diff / Slide Review SLIDE REVIEW
== END 2020-12-16 10:17 | disposition home or self-care (01) ==
PROVIDERS: Emergency Provider Emergency Medicine; PCP Nurse Practitioner Family
DX: R11.15 Cyclical vomiting syndrome unrelated to migraine (principal); R10.9 Unspecified abdominal pain
CPT/HCPCS: 80053; 83690; 85025; 96361; 96374; 99283; 99284; J2060

== ENCOUNTER 2020-12-19 15:18 | Emergency (ER) | payer MEDICARE, OTHER, SELFPAY ==
[2020-12-19] VITALS (13 sets, daily range): BP systolic 119–138; BP diastolic 56–69; PULSE 61–90; RESP 16; TEMP 36.9; O2SAT 92–98
[2020-12-19] MEDS: ONDANSETRON 4 MG/2 ML INJ IV (15:54)
[2020-12-19 16:03] LABS: Add Manual Diff / Slide Review NO; Basophils Absolute Auto 200 /uL (0-100); Basophils Percent Auto 1.3 % (0-2); Eosinophils Absolute Auto 0 /uL (0-450); Eosinophils Percent Auto 0.1 % (2-4); Hematocrit 43.6 % (36-46); Hemoglobin 14.2 g/dL (12.0-16.0); Lymphocytes Absolute Auto 8600 /uL (1100-4500); Lymphocytes Percent Auto 46.1 % (25-40); Mean Corpuscular HGB Conc 32.6 % (30-36); Mean Corpuscular Volume 88.9 fL (80-100); Monocytes Absolute Auto 1000 /uL (0-900); Monocytes Percent Auto 5.4 % (3-14); Neutrophils Absolute Auto 8800 /uL (1500-7000); Neutrophils Percent Auto 47.1 % (50-75); Platelet Count 243 X10^3/uL (150-400); Red Blood Cell Count 4.91 X10^6/uL (4.0-5.2); Red Cell Distribution Width 13.8 % (11.6-14.8); White Blood Cell Count 18.6 X10^3/uL (4.5-11.0)
[2020-12-19 16:12] LABS: Alanine Aminotransferase 21 IU/L (<35); Albumin 4.4 g/dL (3.5-5.0); Albumin Globulin Ratio 1.3 (1.0-2.8); Alkaline Phosphatase 67 U/L (38-126); Aspartate Aminotransferase 24 IU/L (14-36); Bilirubin Total 0.8 mg/dL (0.2-1.3); Blood Urea Nitrogen 30 mg/dL (7-17); Calcium 9.5 mg/dL (8.4-10.2); Carbon Dioxide 25 mmol/L (22-32); Chloride 106 mmol/L (98-107); Estimated Glomerular Filt Rate > 60.0 mL/min (>60); Globulin 3.3 g/dL (1.7-4.1); Glucose 129 mg/dL (80-110); HEMOLYSIS < 15 (0-50); Lipase 112 U/L (23-300); Potassium 3.3 mmol/L (3.4-5.1); Sodium 140 mmol/L (137-145); Total Protein 7.7 g/dL (6.3-8.2)
[2020-12-19] MEDS: SODIUM CHLORIDE 0.9% 1,000 ML 1000 ML IV (17:37)
--- NOTE | 2020-12-19 18:01 | PC.NURSE ---
Pt continues to vomit. ordering 1mg IV ativan which worked for the pt last time
[2020-12-19] MEDS: LORazepam 2 MG/ML INJ 1 MG IV (18:02)
--- NOTE | 2020-12-19 18:28 | PC.NURSE ---
Pt has hx cyclic vomiting and has had to be on TPM 1997. Pt has been hospilized for the same since then. it has been approx 5-6 years since her last time. This started 11/26/20 and this is the 4th visit for this. Pt was also having chest pain earlier today. Pt also being treated for UTI as of 6 days ago,on nitrofurantoin but she has been unable to take it. pt reports vomiting through her meds including the phenergan. pt reports unable to take any po
--- NOTE | 2020-12-19 18:39 | ED.NAVMDI ---
HPI - Nausea/Vomiting/Diarrhea General Chief complaint: Nausea/Vomiting/Diarrhea Stated complaint: vomiting, can't keep anything down Time Seen by Provider: 12/19/20 17:29 Source: patient Mode of arrival: Ambulatory Limitations: no limitations History of Present Illness HPI Narrative: Patient here for intractable nausea and vomiting. No chest pain no back pain. I saw patient here 3 days ago for same complaint. This is patient's 4th visit in 2 weeks for the same. Has had ultrasound of abdomen as well as CT scan of the abdomen pelvis as well as x-ray of chest and abdomen. Please see report below. Patient continues nausea vomiting every 2 hours. Loss of sleep. White cell count elevation all visits likely due to hemoconcentration. Patient has not had fever. No cough cold congestion. complaint: Nausea/Vomiting/Diarrhea Stated complaint: vomitting Time Seen by Provider: 12/16/20 07:37 Source: patient and family Mode of arrival: Ambulatory Limitations: no limitations History of Present Illness HPI Narrative: Patient brought in by from home. Complains of intractable vomiting. Seen here twice in the past 7 days. Just finishing [facility] for treatment for UTI. Patient worked up extensively back in 1997 with [facility] with gastroenterology. Endoscopy is done. Patient and state no definitive diagnosis. Has cyclical vomiting. Has been doing well for the past 5 years until recently last 3 weeks. Symptoms have returned. Patient had x-rays ultrasounds and CT scans here in the last 7 days as well as negative for COVID. complaint: nausea and vomiting Related Data Previous Rx's Medication Instructions Recorded lorazepam 1 mg PO BID PRN #7 tab 12/07/20 metoclopramide HCl 10 mg PO Q6H PRN #20 tab 12/07/20 lorazepam 1 mg PO TID PRN #10 tab 12/09/20 promethazine 25 mg MI Q6H PRN #12 ea 12/16/20 Allergies Allergy/AdvReac Type Severity Reaction Status Date / Time No Known Drug Allergies Allergy Verified 12/19/20 15:34 Review of Systems Review of Systems Narrative: GENERAL: Denies chills, fatigue, malaise, fever, sweats. HEENT: Denies sinus pain, ear pain, sore throat RESPIRATORY: Denies dyspnea, cough CARDIOVASCULAR: Denies chest pain, palpitations GASTROINTESTINAL: Complaint nausea, vomiting, denies abdominal pain : Denies dysuria, frequency, hematuria MUSCULOSKELETAL: denies muscle or bony pain SKIN: Denies rash, skin lesions NEUROLOGIC: Denies weakness, numbness ROS Unobtainable: All systems reviewed & are unremarkable except as noted in HPI and below Patient History Medical History Diverticulitis Surgical History H/O hernia repair History of colectomy Social History Smoking Status: Never smoker Smoking Status: Never smoker alcohol intake frequency: holidays/special occasions only Substance Use Type: does not use Exam Narrative Exam Narrative: GENERAL: in no distress, not toxic not dyspneic HEAD: Normocephalic. EYES: Pupils equal round No scleral icterus. No injection no discharge ENT: Mucous membranes moist. NECK: Trachea midline. CARDIOVASCULAR: Regular rate and rhythm without murmurs RESPIRATORY: Clear to auscultation. Breath sounds equal bilaterally. No wheezes, rales, or rhonchi. GASTROINTESTINAL: Abdomen soft, non-tender EXTREMITIES: No gross deformities. BACK: No flank tenderness. NEURO: AOx4. SKIN: Warm and dry PSYCH: Not anxious, is cooperative Initial Vital Signs Initial Vital Signs: Vital Signs Temperature 98.4 F 12/19/20 15:34 Pulse Rate 90 12/19/20 15:34 Respiratory Rate 16 12/19/20 15:34 Blood Pressure 133/69 12/19/20 15:34 Pulse Oximetry 97 12/19/20 15:34 Course Course Course Narrative: Patient and family understand many beds are full at every hospital. Uncertain which bed/hospital she will get tonight Orders Ordered: ED Orders 12/19/20 18:51 COVID19 - ADMIT ([employer] swab/PCR) Stat Discontinued Medications Sodium Chloride (Normal Saline 0.9%) 1,000 mls @ 1,000 mls/hr IV BOLUS ONE Stop: 12/19/20 18:28 Last Infusion: 12/19/20 18:53 Dose: 0 mls/hr Documented by: Admin: 12/19/20 17:37 Dose: 1,000 mls/hr Documented by: DG Lorazepam (Lorazepam 2 Mg/Ml Inj) 1 mg IV NOW ONE Stop: 12/19/20 18:02 Last Admin: 12/19/20 18:02 Dose: 1 mg Documented by: DG Lorazepam (Lorazepam 2 Mg/Ml Inj) 1 mg IV NOW ONE Stop: 12/20/20 03:00 Last Admin: 12/20/20 03:01 Dose: 1 mg Documented by: MATILDE Ondansetron HCl (Ondansetron 4 Mg/2 Ml Inj) 4 mg IV NOW ONE Stop: 12/19/20 15:40 Last Admin: 12/19/20 15:54 Dose: 4 mg Documented by: DG Reevaluation(s) Reevaluation #1: Resting comfortably. Patient understands reason for transfer. We do not have beds here. Needs GI consult. Time: 01:02 Consultations Consultation #1: Spoke with Ana aguilar hospitalist, Dr. Remy, will admit patient Time: 01:02 Vital Signs Vital signs: Vital Signs - 8 hr 12/19/20 19:30 12/19/20 20:00 12/19/20 20:30 Pulse Rate 81 64 67 Blood Pressure 128/59 L 125/64 124/60 Pulse Oximetry 94 96 92 12/19/20 21:00 12/19/20 21:30 12/19/20 22:00 Pulse Rate 74 68 72 Blood Pressure 131/60 128/62 129/57 L Pulse Oximetry 96 96 97 12/19/20 22:30 12/19/20 23:00 12/19/20 23:30 Pulse Rate 68 65 61 Blood Pressure 119/57 L 121/60 120/56 L Pulse Oximetry 96 96 97 12/20/20 00:00 12/20/20 00:24 12/20/20 00:30 Pulse Rate 60 68 Blood Pressure 111/58 L 110/53 L Pulse Oximetry 96 95 12/20/20 01:00 12/20/20 01:10 12/20/20 01:30 Pulse Rate 82 63 Blood Pressure 123/64 139/63 Pulse Oximetry 100 95 12/20/20 02:00 12/20/20 02:30 12/20/20 02:40 Pulse Rate 57 L 76 70 Blood Pressure 111/56 L 125/63 130/68 Pulse Oximetry 93 94 94 MDM - Nausea/Vomiting/Diarrhea Differential Diagnosis Differential diagnosis: Likely dehydration and other (Cyclic vomiting/gastroparesis) Medical Records Attestation: I reviewed the patient's medical records. Medical records narrative: [address] [id number] ReportSigned Patient: Amee Glover [facility]#: [id number]: 5Acct:[id number]/Sex: 65 / FDate of Service: 12/09/20Loc: EDAccession Number: [id number] Procedure: XR acute abdomen series Ordering Provider: Lucy Sumner D.O. PROCEDURE: XR ACUTE ABDOMEN SERIES INDICATIONS: n/v hx of cyclic vomiting. TECHNIQUE: One view chest and two views of the abdomen were acquired. COMPARISON: [facility], US, US ABDOMEN LIMITED, 12/07/2020, 10:18. [facility], CT, CT ABDOMEN PELVIS W CON, 12/07/2020, 8:56. FINDINGS: Surgical changes and devices: None. Chest: An incomplete inspiratory result is noted, causing a crowded appearance to the lung markings. No focal infiltrates are seen. No pneumothorax or significant pleural effusions are seen. Atherosclerotic calcification of the aortic arch is noted. Heart size is normal. No pleural effusions. No pneumoperitoneum. Abdomen: Bowel gas pattern is normal. No suspicious calcifications. Visualized solid organ contours appear normal. Bones: No suspicious bony lesions. Age-appropriate bony degenerative changes are seen. IMPRESSION: A nonobstructive bowel gas pattern is seen. If clinically appropriate, please consider a repeat plain film study or a reviewed follow-up CT of the abdomen and pelvis, if the patient's symptoms persist or worsen. Dictated by: Jacob Currie M.D. on 12/09/2020 at 14:25 Approved by: Jacob Currie M.D. on 12/09/2020 at 14:[address] [id number] ReportSigned Patient: Amee Glover [facility]#: [id number]: 5Acct:[id number]/Sex: 65 / FDate of Service: 12/07/20Loc: EDAccession Number: [id number] Procedure: US abdomen limited Ordering Provider: Bernadette Combs D.O. PROCEDURE: US ABDOMEN LIMITED INDICATIONS: RIGHT UPPER QUADRANT PAIN TECHNIQUE: Real-time focused scanning was performed of the abdomen, with image documentation. COMPARISON: [facility], CT, CT ABDOMEN PELVIS W CON, 12/07/2020, 8:56. FINDINGS: The liver demonstrates normal size. The liver demonstrates generalized moderately increased echogenicity. This decreases ultrasound sensitivity for detection of hepatic masses. No findings of gallstones or sludge are seen. The gallbladder wall is not thickened, measuring 3 mm or less. Apparent gallbladder wall adenomyomatosis can be seen. No specific pericholecystic fluid is seen. The sonographic Mead sign is negative. There is no biliary dilatation, the common bile duct measures 7 mm. No significant pancreatic abnormality is seen on these images. The right kidney demonstrates multiple cysts, with the largest seen along the mid kidney anteriorly measuring up to 8.5 cm. IMPRESSION: The gallbladder demonstrates a normal sonographic appearance. No biliary dilatation is seen. Apparent gallbladder wall adenomyomatosis is incidentally noted. Right renal cysts are incidentally noted. Dictated by: Jacob Currie M.D. on 12/07/2020 at 9:51 Approved by: Jacob Currie M.D. on 12/07/2020 at 9:[address] [address]XD Scan ReportSigned Patient: Amee Glover [facility]#: [id number]: 5Acct:[id number]/Sex: 65 / FDate of Service: 12/07/20Loc: EDAccession Number: [id number] Procedure: CT abdomen pelvis w con Ordering Provider: Bernadette Combs D.O. PROCEDURE: CT ABDOMEN PELVIS W CON INDICATIONS: right sided pain and nausea TECHNIQUE: After the administration of intravenous contrast, 5 mm thick sections acquired from the diaphragm to the symphysis. 5 mm coronal and sagittal reformats were acquired. For radiation dose reduction, the following was used: automated exposure control, adjustment of mA and/or kV according to patient size. COMPARISON: None. FINDINGS: Image quality: Excellent. ABDOMEN: Lung bases: Lung bases are clear. Heart size is normal. There is a small hiatal hernia. Solid organs: There is diffuse hypoattenuation of the liver compatible with fatty infiltration. The gallbladder appears within normal limits without calcified gallstones. Biliary system is non-dilated. Pancreas enhances normally. No peripancreatic fat stranding or fluid collections. No pancreatic duct dilatation. The spleen is normal in size. There is nodular thickening of the left adrenal gland measuring up to 1.4 cm. Kidneys demonstrate no hydronephrosis. Multiple bilateral renal cysts are demonstrated. Peritoneum and bowel: Bowel loops demonstrate normal wall thickness and caliber. The appendix is not discretely visualized but there are no pericecal inflammatory changes to suggest appendicitis. There is colonic diverticulosis without acute diverticulitis. No free fluid or air. Nodes and vessels: No retroperitoneal or mesenteric adenopathy by size criteria. Aorta and inferior vena cava are normal in size. Miscellaneous: No ventral hernias. PELVIS: Genitourinary: Bladder wall thickness is normal. The uterus and ovaries appear within normal size limits. Miscellaneous: No inguinal hernias or adenopathy. Bones: There are diffuse numerous small sclerotic foci throughout the visualized osseous structures. No vertebral body compression fractures. IMPRESSION: 1. No definite acute intra-abdominal abnormality to correlate with patient's right upper quadrant pain. 2. Numerous diffuse small sclerotic foci throughout the visualized osseous structures. The findings likely represent osteopoikilosis versus metastatic disease. Recommend correlation clinically and further evaluation with a bone scan if clinically indicated. Dictated by: Giovanni Delgado M.D. on 12/07/2020 at 9:39 Approved by: Giovanni Delgado M.D. on 12/07/2020 at 9:45 Lab Data Attestation: I reviewed the patient's lab results. Result diagrams: 12/19/20 15:50 12/19/20 15:50 Labs: Lab Results 12/19/20 12/19/20 12/19/20 Range/Units 15:50 15:50 18:51 WBC 18.6 H (4.5-11.0) X10^3/uL RBC 4.91 (4.0-5.2) X10^6/uL Hgb 14.2 (12.0-16.0) g/dL Hct 43.6 (36-46) % MCV 88.9 (80-100) fL MCH 29.0 (26-34) PG MCHC 32.6 (30-36) % RDW 13.8 (11.6-14.8) % Plt Count 243 (150-400) X10^3/uL Neut % (Auto) 47.1 L (50-75) % Lymph % (Auto) 46.1 H (25-40) % [place] % (Auto) 5.4 (3-14) % Eos % (Auto) 0.1 L (2-4) % Baso % (Auto) 1.3 (0-2) % Neut # (Auto) 8800 H (6852-8305) /uL Lymph # (Auto) 8600 H (8993-4549) /uL [place] # (Auto) 1000 H (0-900) /uL Eos # (Auto) 0 (0-450) /uL Baso # (Auto) 200 H (0-100) /uL Sodium 140 (137-145) mmol/L Potassium 3.3 L (3.4-5.1) mmol/L Chloride 106 (98-107) mmol/L Carbon Dioxide 25 (22-32) mmol/L BUN 30 H (7-17) mg/dL Creatinine 0.60 (0.52-1.04) mg/dL Estimated GFR > 60.0 (>60) mL/min BUN/Creatinine Ratio 50.0 H (6-22) Glucose 129 H (80-110) mg/dL Calcium 9.5 (8.4-10.2) mg/dL Total Bilirubin 0.8 (0.2-1.3) mg/dL AST 24 (14-36) IU/L ALT 21 (<35) IU/L Alkaline Phosphatase 67 (38-126) U/L Total Protein 7.7 (6.3-8.2) g/dL Albumin 4.4 (3.5-5.0) g/dL Globulin 3.3 (1.7-4.1) g/dL Albumin/Globulin Ratio 1.3 (1.0-2.8) Lipase 112 (23-300) U/L SARS-CoV-2 (PCR) Negative (Negative) Urine Dip Bedside Urine Glucose Negative Bedside Urine Bilirubin + 1 Bedside Urine Ketone + 15 Urine Specific [place] 1.030 Bedside Urine Occult Blood +/- Bedside Urine pH 6 Bedside Urine Protein + 30 Bedside Urine Urobilinogen 1+ 2mg Bedside Urine Nitrite - Negative Bedside Urine Leukocytes - Negative Esterase ECG Data Attestation: I personally reviewed and interpreted this ECG as follows: Interpretation: Normal sinus rhythm normal EKG rate [address] elevation or depression MDM Narrative Medical decision making narrative: Appropriate for transfer. No beds available here. Intractable vomiting for the past 2 weeks. Fourth visit here. Patient and desire admission/transfer for further observation treatment and evaluation Discharge Plan Departure [facility] Clinical Impression: Cyclic vomiting syndrome Prescriptions: No Action promethazine 25 mg suppository 25 mg MI Q6H PRN (Reason: nausea and vomiting) Qty: 12 RF: 0 lorazepam 1 mg tablet 1 mg PO BID PRN (Reason: nausea and vomiting) Qty: 7 RF: 0 metoclopramide HCl 10 mg tablet 10 mg PO Q6H PRN (Reason: nausea and vomiting) Qty: 20 RF: 0 lorazepam 1 mg tablet 1 mg PO TID PRN (Reason: nausea and vomiting) Qty: 10 RF: 0 Referrals: Jordyn Cook FNP-BC [Primary Care Provider] -
[2020-12-19 20:43] LABS: COVID19 - ADMIT (NP swab/PCR) Negative (Negative)
[2020-12-20] VITALS (9 sets, daily range): BP systolic 110–139; BP diastolic 53–68; PULSE 57–82; O2SAT 93–100
[2020-12-20] MEDS: LORazepam 2 MG/ML INJ 1 MG IV (03:01)
== END 2020-12-20 02:51 | disposition short-term general hospital (02) ==
PROVIDERS: Emergency Medicine; Emergency Provider Emergency Medicine; PCP Nurse Practitioner Family
DX: R11.15 Cyclical vomiting syndrome unrelated to migraine (principal); R10.11 Right upper quadrant pain; Z20.822 Contact with and (suspected) exposure to COVID-19
CPT/HCPCS: 36415; 80053; 81003; 83690; 85025; 87635; 93005; 96361; 96374; 96375; 96376; 99284; C9803; J2060; J2405

== ENCOUNTER → 2021-03-11 12:04 | Outpatient (CLI) | payer MEDICARE, OTHER, SELFPAY ==
--- NOTE | 2021-03-11 12:08 | DI.CT.S_ITS ---
PROCEDURE: CT CHEST WO/W CON COMPARISON: None. INDICATIONS: Breast CA Technique: Noncontrast spiral axial chest CT examination is performed, followed by IV contrast enhanced spiral axial CT imaging the chest. Dated is reconstructed in axial, sagittal, and coronal sections. FINDINGS: There is a 33 mm diameter left posterior thyroid nodule. No supraclavicular or axillary adenopathy. Heart size is normal. Central and peripheral airways are patent. No mediastinal nor hilar adenopathy. No evidence of pneumonia, or edema. There is a subpleural nodule within the left lung base laterally measuring 3 mm (series 8, image 199). No pleural effusions or pneumothoraces. There are multiple small, subcentimeter sclerotic foci throughout the visualized osseous structures. IMPRESSION: 1. Indeterminate left thyroid mass , which could be further assessed with ultrasound, if clinically indicated. 2. Small left lung base nodule, which is indeterminate. 3. Multiple foci of bony sclerosis, possibly indicating metastatic disease. Whole-body bone scan is recommended for further assessment. Dictated by: Mary Jane Allison M.D. on 03/11/2021 at 14:38 Approved by: Mary Jane Allison M.D. on 03/11/2021 at 14:42
== END ==
PROVIDERS: PCP Nurse Practitioner Family; Referring Provider Internal Medicine Medical Oncology; Visit Provider Internal Medicine Medical Oncology
DX: C50.912 Malignant neoplasm of unspecified site of left female breast (principal); E07.9 Disorder of thyroid, unspecified; R91.1 Solitary pulmonary nodule; M89.9 Disorder of bone, unspecified
CPT/HCPCS: 71270; Q9967

== ENCOUNTER → 2021-07-10 07:40 | Outpatient (CLI) | payer MEDICARE, OTHER, SELFPAY ==
[2021-07-10 09:01] LABS: Hematocrit 38.1 % (36-46); Hemoglobin 12.7 g/dL (12.0-16.0); Mean Corpuscular HGB Conc 33.2 % (30-36); Mean Corpuscular Hemoglobin 28.9 PG (26-34); Platelet Count 196 X10^3/uL (150-400); Red Blood Cell Count 4.38 X10^6/uL (4.0-5.2); Red Cell Distribution Width 14.3 % (11.6-14.8); White Blood Cell Count 6.1 X10^3/uL (4.5-11.0)
[2021-07-10 09:02] LABS: Add Manual Diff / Slide Review YES
[2021-07-10 09:28] LABS: Alanine Aminotransferase 13 IU/L (<35); Albumin Globulin Ratio 1.6 (1.0-2.8); Alkaline Phosphatase 54 U/L (38-126); Aspartate Aminotransferase 17 IU/L (14-36); BUN Creatinine Ratio 23.5 (6-22); Bilirubin Total 0.5 mg/dL (0.2-1.3); Blood Urea Nitrogen 20 mg/dL (7-17); Calcium 9.6 mg/dL (8.4-10.2); Carbon Dioxide 32 mmol/L (22-32); Chloride 103 mmol/L (98-107); Estimated Glomerular Filt Rate > 60.0 mL/min (>60); Globulin 2.5 g/dL (1.7-4.1); Glucose 115 mg/dL (80-110); HEMOLYSIS < 15 (0-50); Potassium 4.6 mmol/L (3.4-5.1); Sodium 139 mmol/L (137-145); Total Protein 6.5 g/dL (6.3-8.2)
[2021-07-10 09:33] LABS: Neutrophils Absolute Manual 1037 /uL (3000-5900); RBC Morphology Normal Morphology; Smudge Cells 2+; Total Cells Counted 100
[2021-07-10 09:56] LABS: Carcinoembryonic Antigen 2.4 ng/mL (0.1-3.0)
[2021-07-10 22:49] LABS: CA 15-3 39.6 U/mL (0.0-25.0)
[2021-07-11 04:50] LABS: Cancer Antigen 27.29 59.2 U/mL (0.0-38.6)
== END ==
PROVIDERS: PCP Nurse Practitioner Family; Referring Provider Internal Medicine Medical Oncology; Visit Provider Internal Medicine Medical Oncology
DX: C50.411 Malignant neoplasm of upper-outer quadrant of right female breast (principal); Z17.0 Estrogen receptor positive status [ER+]
CPT/HCPCS: 36415; 80053; 82378; 85007; 85025; 86300

== ENCOUNTER → 2021-08-15 07:08 | Outpatient (CLI) | payer MEDICARE, OTHER, SELFPAY ==
[2021-08-15 08:23] LABS: Add Manual Diff / Slide Review NO; Basophils Absolute Auto 100 /uL (0-100); Basophils Percent Auto 1.9 % (0-2); Eosinophils Absolute Auto 100 /uL (0-450); Eosinophils Percent Auto 1.5 % (2-4); Hematocrit 37.3 % (36-46); Hemoglobin 12.5 g/dL (12.0-16.0); Lymphocytes Absolute Auto 4700 /uL (1100-4500); Lymphocytes Percent Auto 69.6 % (25-40); Mean Corpuscular HGB Conc 33.4 % (30-36); Mean Corpuscular Hemoglobin 30.2 PG (26-34); Mean Corpuscular Volume 90.6 fL (80-100); Monocytes Absolute Auto 500 /uL (0-900); Monocytes Percent Auto 6.8 % (3-14); Neutrophils Absolute Auto 1400 /uL (1500-7000); Neutrophils Percent Auto 20.2 % (50-75); Platelet Count 197 X10^3/uL (150-400); Red Blood Cell Count 4.12 X10^6/uL (4.0-5.2); Red Cell Distribution Width 18.9 % (11.6-14.8); White Blood Cell Count 6.7 X10^3/uL (4.5-11.0)
[2021-08-15 08:35] LABS: Alanine Aminotransferase 13 IU/L (<35); Albumin 4.2 g/dL (3.5-5.0); Albumin Globulin Ratio 1.3 (1.0-2.8); Alkaline Phosphatase 50 U/L (38-126); Aspartate Aminotransferase 20 IU/L (14-36); BUN Creatinine Ratio 26.6 (6-22); Bilirubin Total 0.5 mg/dL (0.2-1.3); Blood Urea Nitrogen 21 mg/dL (7-17); Calcium 9.6 mg/dL (8.4-10.2); Carbon Dioxide 30 mmol/L (22-32); Chloride 103 mmol/L (98-107); Estimated Glomerular Filt Rate > 60.0 mL/min (>60); Globulin 3.2 g/dL (1.7-4.1); Glucose 112 mg/dL (80-110); HEMOLYSIS < 15 (0-50); Potassium 4.3 mmol/L (3.4-5.1); Sodium 137 mmol/L (137-145); Total Protein 7.4 g/dL (6.3-8.2)
[2021-08-15 23:44] LABS: Cancer Antigen 27.29 51.8 U/mL (0.0-38.6)
[2021-08-16 08:12] LABS: CA 15-3 45.2 U/mL (0.0-25.0)
== END ==
PROVIDERS: PCP Nurse Practitioner Family; Referring Provider Physician Assistant; Visit Provider Physician Assistant
DX: C50.912 Malignant neoplasm of unspecified site of left female breast (principal)
CPT/HCPCS: 36415; 80053; 85025; 86300

== ENCOUNTER → 2021-09-11 07:08 | Outpatient (CLI) | payer MEDICARE, OTHER, SELFPAY ==
[2021-09-11 08:59] LABS: Add Manual Diff / Slide Review NO; Basophils Absolute Auto 100 /uL (0-100); Basophils Percent Auto 1.9 % (0-2); Eosinophils Absolute Auto 200 /uL (0-450); Eosinophils Percent Auto 2.2 % (2-4); Hematocrit 38.7 % (36-46); Hemoglobin 12.6 g/dL (12.0-16.0); Lymphocytes Absolute Auto 4700 /uL (1100-4500); Lymphocytes Percent Auto 66.9 % (25-40); Mean Corpuscular HGB Conc 32.5 % (30-36); Mean Corpuscular Hemoglobin 31.3 PG (26-34); Monocytes Absolute Auto 500 /uL (0-900); Monocytes Percent Auto 7.4 % (3-14); Neutrophils Absolute Auto 1500 /uL (1500-7000); Platelet Count 231 X10^3/uL (150-400); Red Blood Cell Count 4.03 X10^6/uL (4.0-5.2); Red Cell Distribution Width 21.1 % (11.6-14.8)
[2021-09-11 09:05] LABS: Alanine Aminotransferase 14 IU/L (<35); Albumin 4.4 g/dL (3.5-5.0); Albumin Globulin Ratio 1.3 (1.0-2.8); Alkaline Phosphatase 51 U/L (38-126); Aspartate Aminotransferase 21 IU/L (14-36); BUN Creatinine Ratio 23.2 (6-22); Bilirubin Total 0.6 mg/dL (0.2-1.3); Blood Urea Nitrogen 19 mg/dL (7-17); Calcium 9.5 mg/dL (8.4-10.2); Carbon Dioxide 30 mmol/L (22-32); Chloride 103 mmol/L (98-107); Estimated Glomerular Filt Rate > 60.0 mL/min (>60); Globulin 3.3 g/dL (1.7-4.1); Glucose 108 mg/dL (80-110); HEMOLYSIS < 15 (0-50); Potassium 4.2 mmol/L (3.4-5.1); Sodium 139 mmol/L (137-145); Total Protein 7.7 g/dL (6.3-8.2)
[2021-09-11 09:24] LABS: Anisocytosis 1+; Neutrophils Percent Auto 21.6 % (50-75)
[2021-09-11 09:29] LABS: Carcinoembryonic Antigen 2.6 ng/mL (0.1-3.0)
[2021-09-11 22:32] LABS: CA 15-3 45.7 U/mL (0.0-25.0)
[2021-09-12 01:40] LABS: Cancer Antigen 27.29 59.4 U/mL (0.0-38.6)
== END ==
PROVIDERS: PCP Nurse Practitioner Family; Referring Provider Internal Medicine Medical Oncology; Visit Provider Internal Medicine Medical Oncology
DX: C50.912 Malignant neoplasm of unspecified site of left female breast (principal)
CPT/HCPCS: 36415; 80053; 82378; 85025; 86300

== ENCOUNTER → 2021-10-08 07:09 | Outpatient (CLI) | payer MEDICARE, OTHER, SELFPAY ==
[2021-10-08 08:18] LABS: Add Manual Diff / Slide Review NO; Basophils Absolute Auto 100 /uL (0-100); Eosinophils Absolute Auto 0 /uL (0-450); Eosinophils Percent Auto 0.9 % (2-4); Hematocrit 36.8 % (36-46); Hemoglobin 12.6 g/dL (12.0-16.0); Lymphocytes Absolute Auto 2500 /uL (1100-4500); Lymphocytes Percent Auto 47.9 % (25-40); Mean Corpuscular HGB Conc 34.2 % (30-36); Mean Corpuscular Volume 99.5 fL (80-100); Monocytes Absolute Auto 300 /uL (0-900); Monocytes Percent Auto 5.4 % (3-14); Neutrophils Absolute Auto 2300 /uL (1500-7000); Neutrophils Percent Auto 44.8 % (50-75); Platelet Count 161 X10^3/uL (150-400); Red Blood Cell Count 3.69 X10^6/uL (4.0-5.2); Red Cell Distribution Width 18.9 % (11.6-14.8); White Blood Cell Count 5.2 X10^3/uL (4.5-11.0)
[2021-10-08 08:28] LABS: Alanine Aminotransferase 16 IU/L (<35); Albumin 4.2 g/dL (3.5-5.0); Albumin Globulin Ratio 1.4 (1.0-2.8); Alkaline Phosphatase 50 U/L (38-126); Aspartate Aminotransferase 22 IU/L (14-36); BUN Creatinine Ratio 20.8 (6-22); Bilirubin Total 0.5 mg/dL (0.2-1.3); Blood Urea Nitrogen 16 mg/dL (7-17); Calcium 8.8 mg/dL (8.4-10.2); Carbon Dioxide 26 mmol/L (22-32); Chloride 102 mmol/L (98-107); Estimated Glomerular Filt Rate > 60.0 mL/min (>60); Globulin 3.1 g/dL (1.7-4.1); Glucose 126 mg/dL (80-110); HEMOLYSIS < 15 (0-50); Sodium 137 mmol/L (137-145); Total Protein 7.3 g/dL (6.3-8.2)
[2021-10-08 08:59] LABS: Carcinoembryonic Antigen 2.7 ng/mL (0.1-3.0)
[2021-10-08 16:35] LABS: CA 15-3 40.7 U/mL (0.0-25.0)
[2021-10-09 01:50] LABS: Cancer Antigen 27.29 56.1 U/mL (0.0-38.6)
== END ==
PROVIDERS: PCP Nurse Practitioner Family; Referring Provider Internal Medicine Medical Oncology; Visit Provider Internal Medicine Medical Oncology
DX: C50.912 Malignant neoplasm of unspecified site of left female breast (principal)
CPT/HCPCS: 36415; 80053; 82378; 85025; 86300

== ENCOUNTER → 2021-11-05 07:06 | Outpatient (CLI) | payer MEDICARE, OTHER, SELFPAY ==
[2021-11-05 08:12] LABS: Add Manual Diff / Slide Review NO; Basophils Absolute Auto 0 /uL (0-100); Basophils Percent Auto 0.9 % (0-2); Eosinophils Absolute Auto 100 /uL (0-450); Eosinophils Percent Auto 1.9 % (2-4); Hematocrit 36.4 % (36-46); Hemoglobin 12.5 g/dL (12.0-16.0); Lymphocytes Absolute Auto 3200 /uL (1100-4500); Lymphocytes Percent Auto 58.7 % (25-40); Mean Corpuscular HGB Conc 34.4 % (30-36); Mean Corpuscular Hemoglobin 35.9 PG (26-34); Mean Corpuscular Volume 104.4 fL (80-100); Monocytes Absolute Auto 300 /uL (0-900); Neutrophils Absolute Auto 1800 /uL (1500-7000); Neutrophils Percent Auto 32.5 % (50-75); Platelet Count 180 X10^3/uL (150-400); Red Blood Cell Count 3.49 X10^6/uL (4.0-5.2); Red Cell Distribution Width 15.3 % (11.6-14.8); White Blood Cell Count 5.5 X10^3/uL (4.5-11.0)
[2021-11-05 08:31] LABS: Alanine Aminotransferase 14 IU/L (<35); Albumin 4.5 g/dL (3.5-5.0); Albumin Globulin Ratio 1.7 (1.0-2.8); Alkaline Phosphatase 43 U/L (38-126); Aspartate Aminotransferase 20 IU/L (14-36); BUN Creatinine Ratio 18.5 (6-22); Bilirubin Total 0.4 mg/dL (0.2-1.3); Blood Urea Nitrogen 15 mg/dL (7-17); Calcium 9.6 mg/dL (8.4-10.2); Carbon Dioxide 31 mmol/L (22-32); Chloride 105 mmol/L (98-107); Estimated Glomerular Filt Rate > 60 mL/min (>60); Globulin 2.6 g/dL (1.7-4.1); Glucose 110 mg/dL (80-110); HEMOLYSIS < 15 (0-50); Potassium 4.7 mmol/L (3.4-5.1); Sodium 142 mmol/L (137-145); Total Protein 7.1 g/dL (6.3-8.2)
[2021-11-05 08:57] LABS: Carcinoembryonic Antigen 2.7 ng/mL (0.1-3.0)
[2021-11-05 23:09] LABS: CA 15-3 45.7 U/mL (0.0-25.0)
[2021-11-06 02:19] LABS: Cancer Antigen 27.29 49.7 U/mL (0.0-38.6)
== END ==
PROVIDERS: PCP Nurse Practitioner Family; Referring Provider Internal Medicine Medical Oncology; Visit Provider Internal Medicine Medical Oncology
DX: C50.912 Malignant neoplasm of unspecified site of left female breast (principal)
CPT/HCPCS: 36415; 80053; 82378; 85025; 86300

== ENCOUNTER 2021-12-08 12:28 | Emergency (ER) | payer MEDICARE, OTHER, SELFPAY ==
[2021-12-08] VITALS (9 sets, daily range): BP systolic 173–197; BP diastolic 82–102; PULSE 62–79; RESP 16–35; TEMP 36.7; O2SAT 93–99; BMI 38.4
[2021-12-08 14:40] LABS: Add Manual Diff / Slide Review NO; Basophils Absolute Auto 0 /uL (0-100); Basophils Percent Auto 0.2 % (0-2); Eosinophils Absolute Auto 0 /uL (0-450); Eosinophils Percent Auto 0.1 % (2-4); Hematocrit 41.7 % (36-46); Hemoglobin 14.4 g/dL (12.0-16.0); Lymphocytes Absolute Auto 4300 /uL (1100-4500); Lymphocytes Percent Auto 53.6 % (25-40); Mean Corpuscular HGB Conc 34.6 % (30-36); Mean Corpuscular Hemoglobin 35.5 PG (26-34); Mean Corpuscular Volume 102.5 fL (80-100); Monocytes Absolute Auto 500 /uL (0-900); Monocytes Percent Auto 6.7 % (3-14); Neutrophils Absolute Auto 3200 /uL (1500-7000); Neutrophils Percent Auto 39.4 % (50-75); Platelet Count 207 X10^3/uL (150-400); Red Blood Cell Count 4.07 X10^6/uL (4.0-5.2); White Blood Cell Count 8.1 X10^3/uL (4.5-11.0)
[2021-12-08 14:54] LABS: Alanine Aminotransferase 16 IU/L (<35); Albumin 4.6 g/dL (3.5-5.0); Albumin Globulin Ratio 1.4 (1.0-2.8); Alkaline Phosphatase 54 U/L (38-126); Aspartate Aminotransferase 22 IU/L (14-36); Bilirubin Total 0.5 mg/dL (0.2-1.3); Blood Urea Nitrogen 26 mg/dL (7-17); Calcium 9.4 mg/dL (8.4-10.2); Carbon Dioxide 31 mmol/L (22-32); Chloride 102 mmol/L (98-107); Estimated Glomerular Filt Rate > 60 mL/min (>60); Globulin 3.3 g/dL (1.7-4.1); Glucose 130 mg/dL (80-110); HEMOLYSIS < 15 (0-50); Lipase 60 U/L (23-300); Potassium 3.8 mmol/L (3.4-5.1); Sodium 140 mmol/L (137-145); Total Protein 7.9 g/dL (6.3-8.2)
--- NOTE | 2021-12-08 15:14 | DI.CT.S_ITS ---
PROCEDURE: CT ABDOMEN PELVIS W CON INDICATIONS: LUQ pain, nausea, vomiting TECHNIQUE: After the administration of intravenous contrast, axial sections acquired from the lung bases to the pubic symphysis. Coronal and sagittal reformats were performed. For radiation dose reduction, the following was used: automated exposure control, adjustment of mA and/or kV according to patient size. COMPARISON: [facility], CT, CT ABDOMEN PELVIS W CON, 12/07/2020, 8:56. FINDINGS: Lower thorax: The lung bases are clear. Heart size normal. No hiatal hernia. Liver: Normal in size and attenuation. No contour deformity present. 4.4 cm left hepatic cyst. Biliary system: No calcified cholelithiasis or pericholecystic inflammation. No intra or extrahepatic bile duct dilatation. Pancreas: Unremarkable without mass or inflammation evident. Spleen: Normal in size and density. Adrenals: 1.3 cm left adrenal nodularity measures 70 Hounsfield units. Reproductive system: Unremarkable as visualized. Urinary system: Normal renal size and attenuation. Several right renal simple cysts, largest is 6.3 cm. Peripelvic cysts noted as well. No hydronephrosis. Smaller left renal cortical cyst. No renal calculi, hydronephrosis, or solid mass present. Urinary bladder unremarkable. Gastrointestinal system: Mid small bowel is fluid distended measuring up to 4.2 cm in diameter. Distal small bowel is decompressed. The stomach appears unremarkable. Multiple diverticula arise from the entire colon without evidence of diverticulitis. Appendix: No findings to suggest acute appendicitis. Peritoneal spaces: No mesenteric or retroperitoneal adenopathy. No free air. No free fluid. Vasculature: The IVC, aorta and iliac vasculature are unremarkable. Abdominal wall: Abdominal wall intact without evidence of ventral or inguinal hernias. Musculoskeletal: The lumbar spine, sacrum and pelvis all are diffusely mottled within multifocal sclerotic lesions, increased in size and number compared to the prior exam and IMPRESSION: 1. Mid small bowel dilation with distal decompression without focal transition zone. Primary consideration is focal enteritis, although, developing obstruction would also be a differential. Consider short-term interval follow-up. 2. Diffusely mottled osseous structures with multiple sclerotic lesions that have increased in size and number compared to the prior exam 12/07/2020. Consider follow-up bone scan to assess for metastatic disease Approved by: Thong Weller M.D. on 12/08/2021 at 15:27
[2021-12-08] MEDS: ONDANSETRON 8 MG in SODIUM CHLORIDE 0.9% 50 ML 216 MG IV (15:35)
[2021-12-08] MEDS: PANTOPRAZOLE 40 MG VIAL 20 MG IV (15:35)
[2021-12-08] MEDS: SODIUM CHLORIDE 0.9% 1,000 ML 1000 ML IV (15:36)
--- NOTE | 2021-12-08 20:20 | ED.ABDPAIN ---
HPI - Abdominal Pain <Thelma Rushing PA-C - Last Filed: 12/08/21 20:32> General Chief Complaint: Abdominal Pain Stated Complaint: Vomiting x 3 days Time Seen by Provider: 12/08/21 13:21 Source: patient Mode of arrival: Ambulatory History of Present Illness HPI narrative: Patient is a 66-year-old female presenting with severe nausea and vomiting for the past 2 days. She also reports right upper quadrant pain. She has vomited 8-10 times per day, cannot tolerate anything orally and has not been able to take her routine medications for this reason. She has a history of cyclic vomiting syndrome which usually presents with the same symptoms that she is experiencing today. She has a prescription for Reglan and Compazine but was not able to keep it down. She additionally reports a headache. She denies any dizziness. She reports her last bowel movement was on and she has been passing gas successfully. She has a history of bowel obstruction. She has a history of metastatic breast cancer and CLL, and she has been taking p.o. chemotherapy medication. Related Data Home Medications Medication Instructions Recorded Confirmed lisinopril 20 mg tablet 20 mg PO DAILY 01/15/21 03/06/21 melatonin 5 mg chewable tablet 5 mg PO BEDTIME PRN 01/15/21 03/06/21 Previous Rx's Medication Instructions Recorded lorazepam 0.5 mg tablet (Ativan) 0.5 mg PO DAILY PRN #7 tab 02/19/21 Allergies Allergy/AdvReac Type Severity Reaction Status Date / Time No Known Drug Allergies Allergy Verified 12/19/20 15:34 Review of Systems <Thelma Rushing PA-C - Last Filed: 12/08/21 20:32> Review of Systems Narrative: GENERAL: Denies fatigue, fever, or chills HEENT: Denies ear pain, vision changes, sore throat, or difficulty swallowing RESPIRATORY: Denies shortness of breath, cough, or wheezing CARDIOVASCULAR: Denies chest pain, pressure, palpitations, or edema GASTROINTESTINAL: See HPI. : Denies dysuria, frequency, hematuria, or flank pain MUSCULOSKELETAL: Denies weakness, arthralgias, or myalgias SKIN: No rash, pruritis, or erythema NEUROLOGIC: Denies weakness, dizziness, numbness, tingling or confusion PSYCHIATRIC: No concerning psychosocial issues. Patient History <Thelma Rushing PA-C - Last Filed: 12/08/21 20:32> Medical History Diverticulitis Surgical History H/O hernia repair History of colectomy Social History Smoking Status: Never smoker Smoking Status: Never smoker alcohol intake frequency: holidays/special occasions only Substance Use Type: does not use Exam <Thelma Rushing PA-C - Last Filed: 12/08/21 20:32> Narrative Exam Narrative: GENERAL: 66 year old patient appears stated age. Well-developed patient, in moderate distress. HEAD: Atraumatic. Normocephalic. EYES: Pupils equal round and reactive. Extraocular motions intact. No scleral icterus. No injection or drainage. ENT: Nose without bleeding, purulent drainage. Throat without erythema, tonsillar hypertrophy or exudate. Airway patent. NECK: Trachea midline. Non tender CARDIOVASCULAR: Regular rate and rhythm without murmurs, gallops, or rubs. RESPIRATORY: Clear to auscultation. Breath sounds equal bilaterally. No wheezes, rales, or rhonchi. GASTROINTESTINAL: Abdomen soft, non-tender, nondistended. Left upper quadrant tender to palpation. EXTREMITIES: No edema or joint tenderness. BACK: Nontender without deformity or crepitance. No flank tenderness. NEURO: AOx3. SKIN: No rash or erythema of visible areas Initial Vital Signs Initial Vital Signs: Vital Signs Temperature 98.1 F 12/08/21 13:04 Pulse Rate 79 12/08/21 13:04 Respiratory Rate 20 12/08/21 13:04 Blood Pressure 173/102 H 12/08/21 13:04 Pulse Oximetry 95 12/08/21 13:04 <Yasmany Jordan DO - Last Filed: 12/09/21 02:06> Initial Vital Signs Initial Vital Signs: Vital Signs Temperature 98.1 F 12/08/21 13:04 Pulse Rate 79 12/08/21 13:04 Respiratory Rate 20 12/08/21 13:04 Blood Pressure 173/102 H 12/08/21 13:04 Pulse Oximetry 95 12/08/21 13:04 Course <Thelma Rushing PA-C - Last Filed: 12/08/21 20:32> Orders Ordered: Discontinued Medications Sodium Chloride (Normal Saline 0.9%) 1,000 mls @ 1,000 mls/hr IV BOLUS ONE Stop: 12/08/21 16:18 Last Infusion: 12/08/21 17:43 Dose: 0 mls/hr Documented by: Admin: 12/08/21 15:36 Dose: 1,000 mls/hr Documented by: WENDI Ondansetron HCl 8 mg/ Sodium (Chloride) 54 mls @ 216 mls/hr IV NOW ONE Stop: 12/08/21 15:20 Last Infusion: 12/08/21 16:00 Dose: 0 mls/hr Documented by: Admin: 12/08/21 15:35 Dose: 216 mls/hr Documented by: WENDI Pantoprazole Sodium (Pantoprazole 40 Mg Vial) 20 mg IV NOW ONE Stop: 12/08/21 15:20 Last Admin: 12/08/21 15:35 Dose: 20 mg Documented by: WENDI Vital Signs Vital signs: Vital Signs - 8 hr 12/08/21 13:04 12/08/21 16:10 12/08/21 16:11 Temperature 98.1 F Pulse Rate 79 62 66 Respiratory Rate 20 16 21 Blood Pressure 173/102 H 174/82 H Pulse Oximetry 95 98 97 12/08/21 16:30 12/08/21 16:31 12/08/21 17:00 Temperature Pulse Rate 68 62 77 Respiratory Rate 21 20 28 H Blood Pressure 186/84 H Pulse Oximetry 93 96 98 12/08/21 17:01 12/08/21 17:30 12/08/21 17:31 Temperature Pulse Rate 71 66 65 Respiratory Rate 35 H 17 19 Blood Pressure 197/86 H 188/87 H Pulse Oximetry 99 99 99 <Yasmany Jordan DO - Last Filed: 12/09/21 02:06> Orders Ordered: Discontinued Medications Sodium Chloride (Normal Saline 0.9%) 1,000 mls @ 1,000 mls/hr IV BOLUS ONE Stop: 12/08/21 16:18 Last Infusion: 12/08/21 17:43 Dose: 0 mls/hr Documented by: Admin: 12/08/21 15:36 Dose: 1,000 mls/hr Documented by: WENDI Ondansetron HCl 8 mg/ Sodium (Chloride) 54 mls @ 216 mls/hr IV NOW ONE Stop: 12/08/21 15:20 Last Infusion: 12/08/21 16:00 Dose: 0 mls/hr Documented by: Admin: 12/08/21 15:35 Dose: 216 mls/hr Documented by: WENDI Pantoprazole Sodium (Pantoprazole 40 Mg Vial) 20 mg IV NOW ONE Stop: 12/08/21 15:20 Last Admin: 12/08/21 15:35 Dose: 20 mg Documented by: WENDI Vital Signs Vital signs: Vital Signs - 8 hr 12/08/21 13:04 12/08/21 16:10 12/08/21 16:11 Temperature 98.1 F Pulse Rate 79 62 66 Respiratory Rate 20 16 21 Blood Pressure 173/102 H 174/82 H Pulse Oximetry 95 98 97 12/08/21 16:30 12/08/21 16:31 12/08/21 17:00 Temperature Pulse Rate 68 62 77 Respiratory Rate 21 20 28 H Blood Pressure 186/84 H Pulse Oximetry 93 96 98 12/08/21 17:01 12/08/21 17:30 12/08/21 17:31 Temperature Pulse Rate 71 66 65 Respiratory Rate 35 H 17 19 Blood Pressure 197/86 H 188/87 H Pulse Oximetry 99 99 99 MDM - Abdominal Pain <Thelma Rushing PA-C - Last Filed: 12/08/21 20:32> Lab Data Result diagrams: 12/08/21 14:30 12/08/21 13:15 Labs: Lab Results 12/08/21 12/08/21 Range/Units 13:15 14:30 WBC 8.1 (4.5-11.0) X10^3/uL RBC 4.07 (4.0-5.2) X10^6/uL Hgb 14.4 (12.0-16.0) g/dL Hct 41.7 (36-46) % MCV 102.5 H (80-100) fL MCH 35.5 H (26-34) PG MCHC 34.6 (30-36) % RDW 15.0 H (11.6-14.8) % Plt Count 207 (150-400) X10^3/uL Neut % (Auto) 39.4 L (50-75) % Lymph % (Auto) 53.6 H (25-40) % [place] % (Auto) 6.7 (3-14) % Eos % (Auto) 0.1 L (2-4) % Baso % (Auto) 0.2 (0-2) % Neut # (Auto) 3200 (0687-1644) /uL Lymph # (Auto) 4300 (1538-3689) /uL [place] # (Auto) 500 (0-900) /uL Eos # (Auto) 0 (0-450) /uL Baso # (Auto) 0 (0-100) /uL Sodium 140 (137-145) mmol/L Potassium 3.8 (3.4-5.1) mmol/L Chloride 102 (98-107) mmol/L Carbon Dioxide 31 (22-32) mmol/L BUN 26 H (7-17) mg/dL Creatinine 0.84 (0.52-1.04) mg/dL Estimated GFR > 60 (>60) mL/min BUN/Creatinine Ratio 31.0 H (6-22) Glucose 130 H (80-110) mg/dL Calcium 9.4 (8.4-10.2) mg/dL Total Bilirubin 0.5 (0.2-1.3) mg/dL AST 22 (14-36) IU/L ALT 16 (<35) IU/L Alkaline Phosphatase 54 (38-126) U/L Total Protein 7.9 (6.3-8.2) g/dL Albumin 4.6 (3.5-5.0) g/dL Globulin 3.3 (1.7-4.1) g/dL Albumin/Globulin Ratio 1.4 (1.0-2.8) Lipase 60 (23-300) U/L Imaging Data CT scan - abdomen/pelvis: Radiologist's Impression: [address] [address] [address] Scan Report Signed Patient: Amee Glover MR#: [id number] : 1955 Acct:[id number] Age/Sex: 66 / F Date of Service: 12/08/21 Loc: ED Accession Number: [id number] ?? Procedure: CT abdomen pelvis w con Ordering Provider: Thelma Rushing P.A-C PROCEDURE:? CT ABDOMEN PELVIS W CON ? INDICATIONS:? LUQ pain, nausea, vomiting ? TECHNIQUE:? After the administration of intravenous contrast, axial sections acquired from the lung bases to the pubic symphysis.? Coronal and sagittal reformats were performed.? For radiation dose reduction, the following was used:? automated exposure control, adjustment of mA and/or kV according to patient size.? ? COMPARISON:? [facility], CT, CT ABDOMEN PELVIS W CON, 12/07/2020, 8:56. ? FINDINGS: ? Lower thorax: The lung bases are clear.? Heart size normal.? No hiatal hernia. ? Liver:? Normal in size and attenuation. No contour deformity present.? 4.4 cm left hepatic cyst. ? Biliary system:? No calcified cholelithiasis or pericholecystic inflammation.? No intra or extrahepatic bile duct dilatation. ? Pancreas:? Unremarkable without mass or inflammation evident. ? Spleen:? Normal in size and density. ? Adrenals:? 1.3 cm left adrenal nodularity measures 70 Hounsfield units. ? Reproductive system:? Unremarkable as visualized. ? Urinary system:? Normal renal size and attenuation.? Several right renal simple cysts, largest is 6.3 cm.? Peripelvic cysts noted as well.? No hydronephrosis.? Smaller left renal cortical cyst.? No renal calculi, hydronephrosis, or solid mass present.? Urinary bladder unremarkable. ? Gastrointestinal system:? Mid small bowel is fluid distended measuring up to 4.2 cm in diameter.? Distal small bowel is decompressed. The stomach appears unremarkable.? Multiple diverticula arise from the entire colon without evidence of diverticulitis. ? ? Appendix:? No findings to suggest acute appendicitis. ? Peritoneal spaces:? No mesenteric or retroperitoneal adenopathy.? No free air.? No free fluid.? ? Vasculature:? The IVC, aorta and iliac vasculature are unremarkable. ? Abdominal wall:? Abdominal wall intact without evidence of ventral or inguinal hernias. ? Musculoskeletal:? The lumbar spine, sacrum and pelvis all are diffusely mottled within multifocal sclerotic lesions, increased in size and number compared to the prior exam and ? IMPRESSION: ? 1. Mid small bowel dilation with distal decompression without focal transition zone.? Primary consideration is focal enteritis, although, developing obstruction would also be a differential.? Consider short-term interval follow-up. ? 2. Diffusely mottled osseous structures with multiple sclerotic lesions that have increased in size and number compared to the prior exam 12/07/2020.? Consider follow-up bone scan to assess for metastatic disease ? ? ? Approved by: Thong Weller M.D. on 12/08/2021 at 15:27? [facility] Narrative Medical decision making narrative: Patient is a 66-year-old female presenting with severe nausea and vomiting for the last 2 days. She was given IV fluids, Zofran, and Protonix, and this seemed to greatly reduced her symptoms. Her CT showed probable focal enteritis, with a possible developing obstruction, andmultiple sclerotic bone lesions that have increased in size and number when compared to her CT from last year. The nausea and vomiting she presented with today are likely due to her cyclic vomiting syndrome and her abdominal pain is likely due to enteritis. I did discuss her CT results with her and she was aware of her multiple sclerotic lesions. I instructed her to follow up with her oncologist to review the changes in her CT. Patient's symptoms alleviated during her duration the ER and felt she was stable enough to be discharged. I instructed her to increase her fluid intake and to take her Reglan prescription as tolerated. I also counseled her on warning signs of a small-bowel instructed and instructed her to return to the ER if any other symptoms present. Findings and discharge diagnosis discussed with patient/family followed by verbalization of understanding Return precautions discussed with patient/family whom verbalize understanding. <Yasmany Jordan, DO - Last Filed: 12/09/21 02:06> Lab Data Labs: Lab Results 12/08/21 12/08/21 Range/Units 13:15 14:30 WBC 8.1 (4.5-11.0) X10^3/uL RBC 4.07 (4.0-5.2) X10^6/uL Hgb 14.4 (12.0-16.0) g/dL Hct 41.7 (36-46) % MCV 102.5 H (80-100) fL MCH 35.5 H (26-34) PG MCHC 34.6 (30-36) % RDW 15.0 H (11.6-14.8) % Plt Count 207 (150-400) X10^3/uL Neut % (Auto) 39.4 L (50-75) % Lymph % (Auto) 53.6 H (25-40) % [place] % (Auto) 6.7 (3-14) % Eos % (Auto) 0.1 L (2-4) % Baso % (Auto) 0.2 (0-2) % Neut # (Auto) 3200 (7043-5850) /uL Lymph # (Auto) 4300 (4791-6055) /uL [place] # (Auto) 500 (0-900) /uL Eos # (Auto) 0 (0-450) /uL Baso # (Auto) 0 (0-100) /uL Sodium 140 (137-145) mmol/L Potassium 3.8 (3.4-5.1) mmol/L Chloride 102 (98-107) mmol/L Carbon Dioxide 31 (22-32) mmol/L BUN 26 H (7-17) mg/dL Creatinine 0.84 (0.52-1.04) mg/dL Estimated GFR > 60 (>60) mL/min BUN/Creatinine Ratio 31.0 H (6-22) Glucose 130 H (80-110) mg/dL Calcium 9.4 (8.4-10.2) mg/dL Total Bilirubin 0.5 (0.2-1.3) mg/dL AST 22 (14-36) IU/L ALT 16 (<35) IU/L Alkaline Phosphatase 54 (38-126) U/L Total Protein 7.9 (6.3-8.2) g/dL Albumin 4.6 (3.5-5.0) g/dL Globulin 3.3 (1.7-4.1) g/dL Albumin/Globulin Ratio 1.4 (1.0-2.8) Lipase 60 (23-300) U/L Discharge Plan Departure Patient Disposition: Home Clinical Impression: Cyclic vomiting syndrome, Enteritis Instructions: DI for Vomiting -- Adult Activity Restrictions/Additional Instructions: *You have been diagnosed with cyclical vomiting syndrome and probable enteritis. You should be sure to drink plenty of fluids and you can take your anti-nausea prescription as needed. As discussed, you should follow-up with your oncologist regarding your most recent CT scan results. Please return back to the ER if you experience increasing stomach pain, increased nausea and vomiting, increased constipation, and are unable to pass gas. *What to do: *Please continue to take your regular medications as directed. [ ] New medication prescriptions sent to your pharmacy: [ ] [ ] New medication written as a paper prescription [X] No new medications given *Please follow up with your primary care provider in 2-3 days, call for an appointment. Let them know you were seen in the Emergency Department and that we ask that you be seen in follow up. We will electronically transmit a record of today's note if your PCP is in our system *If you do not have a primary care provider please contact the [facility] Call Center at [phone] and they can help get you set up with a doctor in the community. *Return to Emergency Department if you should have any new, worsening or concerning symptoms, such as [fever greater than 101 F, shaking chills, worsening pain, persistent vomiting or other bothersome symptoms] Prescriptions: No Action lisinopril 20 mg Tablet 20 mg PO DAILY 0RF melatonin 5 mg Tablet,Chewable 5 mg PO BEDTIME PRN (Reason: Insomnia) 0RF lorazepam [Ativan] 0.5 mg Tablet 0.5 mg PO DAILY PRN (Reason: Anxiety) Qty: 7 0RF Referrals: Jordyn Cook FNP- [Primary Care Provider] - <Yasmany Jordan DO - Last Filed: 12/09/21 02:06> Cosign ED Attending Samanthaature Attestation: I was immediately available in the department for consultation. This documentation has been reviewed and I agree with assessment and plan. Supervised by Yasmany Jordan DO
== END 2021-12-08 17:55 | disposition home or self-care (01) ==
PROVIDERS: Emergency Medicine; Emergency Provider Physician Assistant; PCP Nurse Practitioner Family
DX: K52.9 Noninfective gastroenteritis and colitis, unspecified (principal); R11.15 Cyclical vomiting syndrome unrelated to migraine
CPT/HCPCS: 36415; 74177; 80053; 83690; 85025; 93005; 96365; 96375; 99284; C9113; J2405; Q9967

== ENCOUNTER → 2021-12-11 07:03 | Outpatient (CLI) | payer MEDICARE, OTHER, SELFPAY ==
[2021-12-11 08:22] LABS: Hematocrit 37.8 % (36-46); Hemoglobin 12.9 g/dL (12.0-16.0); Mean Corpuscular HGB Conc 34.2 % (30-36); Mean Corpuscular Volume 102.4 fL (80-100); Platelet Count 164 X10^3/uL (150-400); Red Blood Cell Count 3.69 X10^6/uL (4.0-5.2); Red Cell Distribution Width 14.5 % (11.6-14.8); White Blood Cell Count 7.2 X10^3/uL (4.5-11.0)
[2021-12-11 08:47] LABS: Add Manual Diff / Slide Review YES
[2021-12-11 08:58] LABS: Alanine Aminotransferase 12 IU/L (<35); Alkaline Phosphatase 39 U/L (38-126); Aspartate Aminotransferase 18 IU/L (14-36); BUN Creatinine Ratio 27.1 (6-22); Bilirubin Total 0.4 mg/dL (0.2-1.3); Blood Urea Nitrogen 19 mg/dL (7-17); Calcium 8.8 mg/dL (8.4-10.2); Carbon Dioxide 26 mmol/L (22-32); Chloride 105 mmol/L (98-107); Estimated Glomerular Filt Rate > 60 mL/min (>60); Glucose 124 mg/dL (80-110); Potassium 4.2 mmol/L (3.4-5.1); Sodium 139 mmol/L (137-145); Total Protein 6.1 g/dL (6.3-8.2)
[2021-12-11 08:59] LABS: Albumin 3.6 g/dL (3.5-5.0); Albumin Globulin Ratio 1.4 (1.0-2.8); Globulin 2.5 g/dL (1.7-4.1); HEMOLYSIS < 15 (0-50)
[2021-12-11 09:28] LABS: Carcinoembryonic Antigen 2.1 ng/mL (0.1-3.0)
[2021-12-11 09:41] LABS: Neutrophils Absolute Manual 1728 /uL (3000-5900); Total Cells Counted 100
[2021-12-11 09:42] LABS: Smudge Cells 1+
[2021-12-11 09:43] LABS: Anisocytosis 1+
[2021-12-12 05:26] LABS: CA 15-3 36.5 U/mL (0.0-25.0)
[2021-12-12 09:15] LABS: Cancer Antigen 27.29 40.7 U/mL (0.0-38.6)
== END ==
PROVIDERS: PCP Nurse Practitioner Family; Referring Provider Internal Medicine Medical Oncology; Visit Provider Internal Medicine Medical Oncology
DX: C50.412 Malignant neoplasm of upper-outer quadrant of left female breast (principal)
CPT/HCPCS: 36415; 80053; 82378; 85007; 85025; 86300

== ENCOUNTER → 2022-01-07 07:01 | Outpatient (CLI) | payer MEDICARE, OTHER, SELFPAY ==
[2022-01-07 07:54] LABS: Hematocrit 36.9 % (36-46); Hemoglobin 12.6 g/dL (12.0-16.0); Mean Corpuscular Hemoglobin 34.9 PG (26-34); Mean Corpuscular Volume 102.5 fL (80-100); Platelet Count 142 X10^3/uL (150-400); Red Cell Distribution Width 14.8 % (11.6-14.8); White Blood Cell Count 3.4 X10^3/uL (4.5-11.0)
[2022-01-07 07:56] LABS: Add Manual Diff / Slide Review YES
[2022-01-07 08:37] LABS: Alanine Aminotransferase 13 IU/L (<35); Albumin Globulin Ratio 1.4 (1.0-2.8); Alkaline Phosphatase 46 U/L (38-126); Aspartate Aminotransferase 25 IU/L (14-36); BUN Creatinine Ratio 27.1 (6-22); Bilirubin Total 0.4 mg/dL (0.2-1.3); Blood Urea Nitrogen 19 mg/dL (7-17); Calcium 8.6 mg/dL (8.4-10.2); Carbon Dioxide 26 mmol/L (22-32); Chloride 107 mmol/L (98-107); Estimated Glomerular Filt Rate > 60 mL/min (>60); Globulin 2.9 g/dL (1.7-4.1); Glucose 130 mg/dL (80-110); HEMOLYSIS < 15 (0-50); Potassium 4.2 mmol/L (3.4-5.1); Sodium 140 mmol/L (137-145); Total Protein 6.9 g/dL (6.3-8.2)
[2022-01-07 08:39] LABS: Macrocytosis 1+; Neutrophils Absolute Manual 612 /uL (3000-5900); Total Cells Counted 100
[2022-01-07 08:40] LABS: Anisocytosis 1+; RBC Morphology See
[2022-01-07 09:09] LABS: Carcinoembryonic Antigen 2.3 ng/mL (0.1-3.0)
[2022-01-07 22:54] LABS: CA 15-3 34.6 U/mL (0.0-25.0)
[2022-01-08 08:35] LABS: Cancer Antigen 27.29 40.8 U/mL (0.0-38.6)
== END ==
PROVIDERS: PCP Nurse Practitioner Family; Referring Provider Internal Medicine Medical Oncology; Visit Provider Internal Medicine Medical Oncology
DX: C50.412 Malignant neoplasm of upper-outer quadrant of left female breast (principal); M89.9 Disorder of bone, unspecified
CPT/HCPCS: 36415; 80053; 82378; 85007; 85025; 86300

== ENCOUNTER → 2022-01-16 06:58 | Outpatient (CLI) | payer MEDICARE, OTHER, SELFPAY ==
[2022-01-16 08:14] LABS: Add Manual Diff / Slide Review NO; Basophils Absolute Auto 200 /uL (0-100); Basophils Percent Auto 2.2 % (0-2); Eosinophils Absolute Auto 200 /uL (0-450); Eosinophils Percent Auto 2.3 % (2-4); Hematocrit 36.6 % (36-46); Hemoglobin 12.6 g/dL (12.0-16.0); Lymphocytes Absolute Auto 3600 /uL (1100-4500); Lymphocytes Percent Auto 50.5 % (25-40); Mean Corpuscular HGB Conc 34.5 % (30-36); Mean Corpuscular Hemoglobin 35.2 PG (26-34); Mean Corpuscular Volume 101.8 fL (80-100); Monocytes Absolute Auto 1000 /uL (0-900); Monocytes Percent Auto 13.9 % (3-14); Neutrophils Absolute Auto 2200 /uL (1500-7000); Neutrophils Percent Auto 31.1 % (50-75); Platelet Count 219 X10^3/uL (150-400); Red Blood Cell Count 3.59 X10^6/uL (4.0-5.2); Red Cell Distribution Width 15.2 % (11.6-14.8); White Blood Cell Count 7.2 X10^3/uL (4.5-11.0)
== END ==
PROVIDERS: PCP Nurse Practitioner Family; Referring Provider Internal Medicine Medical Oncology; Visit Provider Internal Medicine Medical Oncology
DX: C50.412 Malignant neoplasm of upper-outer quadrant of left female breast (principal)
CPT/HCPCS: 36415; 85025

== ENCOUNTER → 2022-02-11 07:03 | Outpatient (CLI) | payer MEDICARE, OTHER, SELFPAY ==
[2022-02-11 07:38] LABS: Add Manual Diff / Slide Review NO; Basophils Absolute Auto 100 /uL (0-100); Basophils Percent Auto 1.5 % (0-2); Eosinophils Absolute Auto 100 /uL (0-450); Eosinophils Percent Auto 1.9 % (2-4); Hematocrit 37.2 % (36-46); Hemoglobin 12.7 g/dL (12.0-16.0); Lymphocytes Absolute Auto 3200 /uL (1100-4500); Lymphocytes Percent Auto 63.7 % (25-40); Mean Corpuscular HGB Conc 34.2 % (30-36); Mean Corpuscular Hemoglobin 34.9 PG (26-34); Mean Corpuscular Volume 102.1 fL (80-100); Monocytes Absolute Auto 400 /uL (0-900); Neutrophils Absolute Auto 1300 /uL (1500-7000); Neutrophils Percent Auto 25.9 % (50-75); Platelet Count 171 X10^3/uL (150-400); Red Blood Cell Count 3.64 X10^6/uL (4.0-5.2); Red Cell Distribution Width 15.6 % (11.6-14.8); White Blood Cell Count 5.1 X10^3/uL (4.5-11.0)
[2022-02-11 07:55] LABS: Alanine Aminotransferase 14 IU/L (<35); Albumin 4.1 g/dL (3.5-5.0); Albumin Globulin Ratio 1.5 (1.0-2.8); Alkaline Phosphatase 47 U/L (38-126); Aspartate Aminotransferase 18 IU/L (14-36); BUN Creatinine Ratio 27.3 (6-22); Bilirubin Total 0.5 mg/dL (0.2-1.3); Blood Urea Nitrogen 21 mg/dL (7-17); Calcium 9.3 mg/dL (8.4-10.2); Carbon Dioxide 27 mmol/L (22-32); Chloride 103 mmol/L (98-107); Estimated Glomerular Filt Rate > 60 mL/min (>60); Globulin 2.8 g/dL (1.7-4.1); Glucose 104 mg/dL (80-110); HEMOLYSIS < 15 (0-50); Potassium 4.4 mmol/L (3.4-5.1); Sodium 140 mmol/L (137-145); Total Protein 6.9 g/dL (6.3-8.2)
[2022-02-11 08:24] LABS: Carcinoembryonic Antigen 2.7 ng/mL (0.1-3.0)
[2022-02-11 22:38] LABS: CA 15-3 40.1 U/mL (0.0-25.0)
[2022-02-12 08:17] LABS: Cancer Antigen 27.29 47.2 U/mL (0.0-38.6)
== END ==
PROVIDERS: PCP Nurse Practitioner Family; Referring Provider Internal Medicine Medical Oncology; Visit Provider Internal Medicine Medical Oncology
DX: C50.412 Malignant neoplasm of upper-outer quadrant of left female breast (principal); M89.9 Disorder of bone, unspecified
CPT/HCPCS: 36415; 80053; 82378; 85025; 86300

== ENCOUNTER → 2022-03-11 06:59 | Outpatient (CLI) | payer MEDICARE, OTHER, SELFPAY ==
[2022-03-11 08:28] LABS: Add Manual Diff / Slide Review NO; Basophils Absolute Auto 100 /uL (0-100); Basophils Percent Auto 2.8 % (0-2); Eosinophils Absolute Auto 100 /uL (0-450); Hematocrit 37.2 % (36-46); Hemoglobin 12.9 g/dL (12.0-16.0); Lymphocytes Absolute Auto 2800 /uL (1100-4500); Lymphocytes Percent Auto 61.2 % (25-40); Mean Corpuscular HGB Conc 34.6 % (30-36); Mean Corpuscular Hemoglobin 35.1 PG (26-34); Mean Corpuscular Volume 101.4 fL (80-100); Monocytes Absolute Auto 300 /uL (0-900); Neutrophils Absolute Auto 1200 /uL (1500-7000); Platelet Count 195 X10^3/uL (150-400); Red Blood Cell Count 3.67 X10^6/uL (4.0-5.2); Red Cell Distribution Width 16.3 % (11.6-14.8); White Blood Cell Count 4.6 X10^3/uL (4.5-11.0)
[2022-03-11 09:22] LABS: Alanine Aminotransferase 15 IU/L (<35); Albumin 4.1 g/dL (3.5-5.0); Albumin Globulin Ratio 1.4 (1.0-2.8); Alkaline Phosphatase 51 U/L (38-126); Aspartate Aminotransferase 19 IU/L (14-36); BUN Creatinine Ratio 23.7 (6-22); Bilirubin Total 0.5 mg/dL (0.2-1.3); Blood Urea Nitrogen 18 mg/dL (7-17); Calcium 9.5 mg/dL (8.4-10.2); Carbon Dioxide 32 mmol/L (22-32); Chloride 100 mmol/L (98-107); Estimated Glomerular Filt Rate > 60 mL/min (>60); Globulin 2.9 g/dL (1.7-4.1); Glucose 108 mg/dL (80-110); HEMOLYSIS < 15 (0-50); Potassium 4.8 mmol/L (3.4-5.1); Sodium 137 mmol/L (137-145)
[2022-03-12 05:12] LABS: CA 15-3 43.3 U/mL (0.0-25.0)
[2022-03-12 10:04] LABS: Cancer Antigen 27.29 51.7 U/mL (0.0-38.6)
== END ==
PROVIDERS: PCP Nurse Practitioner Family; Referring Provider Internal Medicine Medical Oncology; Visit Provider Internal Medicine Medical Oncology
DX: C50.412 Malignant neoplasm of upper-outer quadrant of left female breast (principal); M89.9 Disorder of bone, unspecified
CPT/HCPCS: 36415; 80053; 82378; 85025; 86300

== ENCOUNTER → 2022-04-08 07:02 | Outpatient (CLI) | payer MEDICARE, OTHER, SELFPAY ==
[2022-04-09 06:32] LABS: CA 15-3 41.6 U/mL (0.0-25.0)
[2022-04-09 10:09] LABS: Cancer Antigen 27.29 53.9 U/mL (0.0-38.6)
== END ==
PROVIDERS: PCP Nurse Practitioner Family; Referring Provider Internal Medicine Medical Oncology; Visit Provider Internal Medicine Medical Oncology
DX: C50.412 Malignant neoplasm of upper-outer quadrant of left female breast (principal); M89.9 Disorder of bone, unspecified
CPT/HCPCS: 36415; 82378; 86300

== ENCOUNTER → 2022-05-06 07:00 | Outpatient (CLI) | payer MEDICARE, OTHER, SELFPAY ==
[2022-05-06 08:20] LABS: Add Manual Diff / Slide Review NO; Basophils Absolute Auto 100 /uL (0-100); Basophils Percent Auto 2.5 % (0-2); Eosinophils Absolute Auto 100 /uL (0-450); Eosinophils Percent Auto 1.5 % (2-4); Hematocrit 39.4 % (36-46); Hemoglobin 13.1 g/dL (12.0-16.0); Lymphocytes Absolute Auto 3100 /uL (1100-4500); Lymphocytes Percent Auto 58.2 % (25-40); Mean Corpuscular HGB Conc 33.3 % (30-36); Mean Corpuscular Volume 105.2 fL (80-100); Monocytes Absolute Auto 300 /uL (0-900); Monocytes Percent Auto 5.8 % (3-14); Neutrophils Absolute Auto 1700 /uL (1500-7000); Platelet Count 213 X10^3/uL (150-400); Red Blood Cell Count 3.74 X10^6/uL (4.0-5.2); Red Cell Distribution Width 15.7 % (11.6-14.8); White Blood Cell Count 5.3 X10^3/uL (4.5-11.0)
[2022-05-06 08:50] LABS: Alanine Aminotransferase 16 IU/L (<35); Albumin 4.2 g/dL (3.5-5.0); Albumin Globulin Ratio 1.3 (1.0-2.8); Alkaline Phosphatase 60 U/L (38-126); Aspartate Aminotransferase 20 IU/L (14-36); Bilirubin Total 0.3 mg/dL (0.2-1.3); Blood Urea Nitrogen 17 mg/dL (7-17); Calcium 9.4 mg/dL (8.4-10.2); Carbon Dioxide 29 mmol/L (22-32); Chloride 101 mmol/L (98-107); Estimated Glomerular Filt Rate > 60 mL/min (>60); Globulin 3.2 g/dL (1.7-4.1); Glucose 134 mg/dL (80-110); HEMOLYSIS < 15 (0-50); Potassium 4.8 mmol/L (3.4-5.1); Sodium 140 mmol/L (137-145); Total Protein 7.4 g/dL (6.3-8.2)
[2022-05-06 09:19] LABS: Carcinoembryonic Antigen 3.4 ng/mL (0.1-3.0)
[2022-05-07 07:47] LABS: CA 15-3 40.8 U/mL (0.0-25.0)
[2022-05-07 09:15] LABS: Cancer Antigen 27.29 52.9 U/mL (0.0-38.6)
== END ==
PROVIDERS: PCP Nurse Practitioner Family; Referring Provider Internal Medicine Medical Oncology; Visit Provider Internal Medicine Medical Oncology
DX: C50.412 Malignant neoplasm of upper-outer quadrant of left female breast (principal); M89.9 Disorder of bone, unspecified
CPT/HCPCS: 36415; 80053; 82378; 85025; 86300

== ENCOUNTER → 2022-06-03 06:54 | Outpatient (CLI) | payer MEDICARE, OTHER, SELFPAY ==
[2022-06-03 07:58] LABS: Add Manual Diff / Slide Review YES; Hematocrit 38.2 % (36-46); Hemoglobin 12.8 g/dL (12.0-16.0); Mean Corpuscular HGB Conc 33.5 % (30-36); Mean Corpuscular Hemoglobin 35.6 PG (26-34); Mean Corpuscular Volume 106.2 fL (80-100); Platelet Count 221 X10^3/uL (150-400); Red Cell Distribution Width 14.6 % (11.6-14.8); White Blood Cell Count 5.4 X10^3/uL (4.5-11.0)
[2022-06-03 08:10] LABS: Alanine Aminotransferase 24 IU/L (<35); Albumin 4.3 g/dL (3.5-5.0); Albumin Globulin Ratio 1.4 (1.0-2.8); Alkaline Phosphatase 52 U/L (38-126); Aspartate Aminotransferase 22 IU/L (14-36); BUN Creatinine Ratio 19.5 (6-22); Bilirubin Total 0.5 mg/dL (0.2-1.3); Blood Urea Nitrogen 15 mg/dL (7-17); Calcium 9.2 mg/dL (8.4-10.2); Carbon Dioxide 29 mmol/L (22-32); Chloride 99 mmol/L (98-107); Estimated Glomerular Filt Rate > 60 mL/min (>60); Glucose 118 mg/dL (80-110); HEMOLYSIS < 15 (0-50); Potassium 4.6 mmol/L (3.4-5.1); Sodium 139 mmol/L (137-145); Total Protein 7.3 g/dL (6.3-8.2)
[2022-06-03 08:19] LABS: Anisocytosis 1+; Neutrophils Absolute Manual 1674 /uL (3000-5900); Total Cells Counted 100
[2022-06-03 08:40] LABS: Carcinoembryonic Antigen 3.6 ng/mL (0.1-3.0)
[2022-06-04 08:10] LABS: CA 15-3 47.5 U/mL (0.0-25.0)
[2022-06-05 10:09] LABS: Cancer Antigen 27.29 57.4 U/mL (0.0-38.6)
== END ==
PROVIDERS: PCP Nurse Practitioner Family; Referring Provider Internal Medicine Medical Oncology; Visit Provider Internal Medicine Medical Oncology
DX: C50.412 Malignant neoplasm of upper-outer quadrant of left female breast (principal); M89.9 Disorder of bone, unspecified
CPT/HCPCS: 36415; 80053; 82378; 85007; 85025; 86300

== ENCOUNTER → 2022-07-01 06:58 | Outpatient (CLI) | payer MEDICARE, OTHER, SELFPAY ==
[2022-07-01 08:01] LABS: Add Manual Diff / Slide Review NO; Basophils Absolute Auto 100 /uL (0-100); Basophils Percent Auto 1.3 % (0-2); Eosinophils Absolute Auto 100 /uL (0-450); Eosinophils Percent Auto 1.1 % (2-4); Hematocrit 37.8 % (36-46); Hemoglobin 12.8 g/dL (12.0-16.0); Lymphocytes Absolute Auto 3100 /uL (1100-4500); Lymphocytes Percent Auto 49.7 % (25-40); Mean Corpuscular HGB Conc 33.8 % (30-36); Mean Corpuscular Hemoglobin 35.9 PG (26-34); Mean Corpuscular Volume 106.4 fL (80-100); Monocytes Absolute Auto 500 /uL (0-900); Neutrophils Absolute Auto 2500 /uL (1500-7000); Neutrophils Percent Auto 39.9 % (50-75); Platelet Count 209 X10^3/uL (150-400); Red Blood Cell Count 3.55 X10^6/uL (4.0-5.2); Red Cell Distribution Width 13.9 % (11.6-14.8); White Blood Cell Count 6.2 X10^3/uL (4.5-11.0)
[2022-07-01 08:34] LABS: Alanine Aminotransferase 19 IU/L (<35); Albumin 4.2 g/dL (3.5-5.0); Albumin Globulin Ratio 1.2 (1.0-2.8); Alkaline Phosphatase 52 U/L (38-126); Aspartate Aminotransferase 21 IU/L (14-36); BUN Creatinine Ratio 16.7 (6-22); Bilirubin Total 0.6 mg/dL (0.2-1.3); Blood Urea Nitrogen 13 mg/dL (7-17); Calcium 9.2 mg/dL (8.4-10.2); Carbon Dioxide 31 mmol/L (22-32); Chloride 100 mmol/L (98-107); Estimated Glomerular Filt Rate > 60 mL/min (>60); Globulin 3.6 g/dL (1.7-4.1); Glucose 108 mg/dL (80-110); HEMOLYSIS < 15 (0-50); Potassium 4.2 mmol/L (3.4-5.1); Sodium 140 mmol/L (137-145); Total Protein 7.8 g/dL (6.3-8.2)
[2022-07-01 09:01] LABS: Carcinoembryonic Antigen 3.1 ng/mL (0.1-3.0)
[2022-07-02 07:08] LABS: Cancer Antigen 27.29 50.2 U/mL (0.0-38.6)
[2022-07-02 07:09] LABS: CA 15-3 42.4 U/mL (0.0-25.0)
== END ==
PROVIDERS: PCP Nurse Practitioner Family; Referring Provider Internal Medicine Medical Oncology; Visit Provider Internal Medicine Medical Oncology
DX: C50.412 Malignant neoplasm of upper-outer quadrant of left female breast (principal); M89.9 Disorder of bone, unspecified
CPT/HCPCS: 36415; 80053; 82378; 85025; 86300

== ENCOUNTER → 2022-07-29 06:53 | Outpatient (CLI) | payer MEDICARE, OTHER, SELFPAY ==
[2022-07-29 08:04] LABS: Add Manual Diff / Slide Review NO; Basophils Absolute Auto 100 /uL (0-100); Basophils Percent Auto 2.3 % (0-2); Eosinophils Absolute Auto 100 /uL (0-450); Eosinophils Percent Auto 2.6 % (2-4); Hematocrit 39.3 % (36-46); Hemoglobin 13.1 g/dL (12.0-16.0); Lymphocytes Absolute Auto 2600 /uL (1100-4500); Lymphocytes Percent Auto 55.8 % (25-40); Mean Corpuscular HGB Conc 33.2 % (30-36); Mean Corpuscular Hemoglobin 35.4 PG (26-34); Mean Corpuscular Volume 106.4 fL (80-100); Monocytes Absolute Auto 300 /uL (0-900); Monocytes Percent Auto 7.1 % (3-14); Neutrophils Absolute Auto 1500 /uL (1500-7000); Neutrophils Percent Auto 32.2 % (50-75); Platelet Count 205 X10^3/uL (150-400); Red Blood Cell Count 3.69 X10^6/uL (4.0-5.2); Red Cell Distribution Width 13.9 % (11.6-14.8); White Blood Cell Count 4.7 X10^3/uL (4.5-11.0)
[2022-07-29 08:42] LABS: Alanine Aminotransferase 21 IU/L (<35); Albumin 4.3 g/dL (3.5-5.0); Albumin Globulin Ratio 1.4 (1.0-2.8); Alkaline Phosphatase 58 U/L (38-126); Aspartate Aminotransferase 23 IU/L (14-36); BUN Creatinine Ratio 22.5 (6-22); Bilirubin Total 0.5 mg/dL (0.2-1.3); Blood Urea Nitrogen 16 mg/dL (7-17); Calcium 9.3 mg/dL (8.4-10.2); Carbon Dioxide 28 mmol/L (22-32); Chloride 100 mmol/L (98-107); Estimated Glomerular Filt Rate > 60 mL/min (>60); Glucose 112 mg/dL (80-110); HEMOLYSIS < 15 (0-50); Potassium 4.4 mmol/L (3.4-5.1); Sodium 138 mmol/L (137-145); Total Protein 7.3 g/dL (6.3-8.2)
[2022-07-29 09:05] LABS: Carcinoembryonic Antigen 3.2 ng/mL (0.1-3.0)
[2022-07-30 08:11] LABS: CA 15-3 40.8 U/mL (0.0-25.0)
[2022-07-30 11:37] LABS: Cancer Antigen 27.29 57.2 U/mL (0.0-38.6)
== END ==
PROVIDERS: PCP Nurse Practitioner Family; Referring Provider Internal Medicine Medical Oncology; Visit Provider Internal Medicine Medical Oncology
DX: C91.10 Chronic lymphocytic leukemia of B-cell type not having achieved remission (principal); C50.412 Malignant neoplasm of upper-outer quadrant of left female breast; M89.9 Disorder of bone, unspecified
CPT/HCPCS: 36415; 80053; 82378; 85025; 86300; 88184

== ENCOUNTER → 2022-08-26 07:00 | Outpatient (CLI) | payer MEDICARE, OTHER, SELFPAY ==
[2022-08-26 08:22] LABS: Add Manual Diff / Slide Review NO; Basophils Absolute Auto 100 /uL (0-100); Basophils Percent Auto 1.8 % (0-2); Eosinophils Absolute Auto 100 /uL (0-450); Eosinophils Percent Auto 1.2 % (2-4); Hematocrit 38.3 % (36-46); Hemoglobin 12.6 g/dL (12.0-16.0); Lymphocytes Absolute Auto 2700 /uL (1100-4500); Mean Corpuscular HGB Conc 32.8 % (30-36); Mean Corpuscular Hemoglobin 35.2 PG (26-34); Mean Corpuscular Volume 107.3 fL (80-100); Monocytes Absolute Auto 400 /uL (0-900); Neutrophils Absolute Auto 2600 /uL (1500-7000); Platelet Count 198 X10^3/uL (150-400); Red Blood Cell Count 3.57 X10^6/uL (4.0-5.2); Red Cell Distribution Width 14.3 % (11.6-14.8); White Blood Cell Count 5.9 X10^3/uL (4.5-11.0)
[2022-08-26 08:49] LABS: Alanine Aminotransferase 17 IU/L (<35); Albumin 4.2 g/dL (3.5-5.0); Albumin Globulin Ratio 1.5 (1.0-2.8); Alkaline Phosphatase 50 U/L (38-126); Aspartate Aminotransferase 20 IU/L (14-36); Bilirubin Total 0.6 mg/dL (0.2-1.3); Blood Urea Nitrogen 18 mg/dL (7-17); Calcium 9.3 mg/dL (8.4-10.2); Carbon Dioxide 29 mmol/L (22-32); Chloride 100 mmol/L (98-107); Estimated Glomerular Filt Rate > 60 mL/min (>60); Globulin 2.8 g/dL (1.7-4.1); Glucose 96 mg/dL (80-110); HEMOLYSIS < 15 (0-50); Potassium 4.3 mmol/L (3.4-5.1); Sodium 139 mmol/L (137-145)
[2022-08-26 09:21] LABS: Carcinoembryonic Antigen 3.2 ng/mL (0.1-3.0)
[2022-08-28 01:08] LABS: CA 15-3 44.3 U/mL (0.0-25.0)
[2022-08-28 06:14] LABS: Cancer Antigen 27.29 37.4 U/mL (0.0-38.6)
== END ==
PROVIDERS: PCP Nurse Practitioner Family; Referring Provider Internal Medicine Medical Oncology; Visit Provider Internal Medicine Medical Oncology
DX: C50.412 Malignant neoplasm of upper-outer quadrant of left female breast (principal); M89.9 Disorder of bone, unspecified
CPT/HCPCS: 36415; 80053; 82378; 85025; 86300

== ENCOUNTER → 2022-09-23 06:57 | Outpatient (CLI) | payer MEDICARE, OTHER, SELFPAY ==
[2022-09-23 08:12] LABS: Hematocrit 37.8 % (36-46); Hemoglobin 12.5 g/dL (12.0-16.0); Mean Corpuscular HGB Conc 33.1 % (30-36); Mean Corpuscular Hemoglobin 35.2 PG (26-34); Mean Corpuscular Volume 106.2 fL (80-100); Platelet Count 210 X10^3/uL (150-400); Red Blood Cell Count 3.56 X10^6/uL (4.0-5.2); Red Cell Distribution Width 13.6 % (11.6-14.8); White Blood Cell Count 4.4 X10^3/uL (4.5-11.0)
[2022-09-23 08:13] LABS: Add Manual Diff / Slide Review YES
[2022-09-23 08:28] LABS: Neutrophils Absolute Manual 1144 /uL (3000-5900); Total Cells Counted 100
[2022-09-23 08:29] LABS: Alanine Aminotransferase 18 IU/L (<35); Albumin 4.1 g/dL (3.5-5.0); Albumin Globulin Ratio 1.4 (1.0-2.8); Alkaline Phosphatase 59 U/L (38-126); Aspartate Aminotransferase 21 IU/L (14-36); BUN Creatinine Ratio 25.8 (6-22); Bilirubin Total 0.4 mg/dL (0.2-1.3); Blood Urea Nitrogen 17 mg/dL (7-17); Calcium 9.2 mg/dL (8.4-10.2); Carbon Dioxide 31 mmol/L (22-32); Chloride 101 mmol/L (98-107); Estimated Glomerular Filt Rate > 60 mL/min (>60); Globulin 2.9 g/dL (1.7-4.1); Glucose 103 mg/dL (80-110); HEMOLYSIS < 15 (0-50); Potassium 4.6 mmol/L (3.4-5.1); RBC Morphology Normal Morphology; Sodium 139 mmol/L (137-145)
[2022-09-23 08:59] LABS: Carcinoembryonic Antigen 3.1 ng/mL (0.1-3.0)
[2022-09-24 08:45] LABS: CA 15-3 39.7 U/mL (0.0-25.0)
[2022-09-24 11:14] LABS: Cancer Antigen 27.29 55.7 U/mL (0.0-38.6)
== END ==
PROVIDERS: PCP Nurse Practitioner Family; Referring Provider Internal Medicine Medical Oncology; Visit Provider Internal Medicine Medical Oncology
DX: C50.412 Malignant neoplasm of upper-outer quadrant of left female breast (principal); M89.9 Disorder of bone, unspecified
CPT/HCPCS: 36415; 80053; 82378; 85007; 85025; 86300

== ENCOUNTER → 2022-10-21 06:55 | Outpatient (CLI) | payer MEDICARE, OTHER, SELFPAY ==
[2022-10-21 08:16] LABS: Hematocrit 38.1 % (36-46); Hemoglobin 12.7 g/dL (12.0-16.0); Mean Corpuscular HGB Conc 33.4 % (30-36); Mean Corpuscular Hemoglobin 35.6 PG (26-34); Mean Corpuscular Volume 106.5 fL (80-100); Platelet Count 207 X10^3/uL (150-400); Red Blood Cell Count 3.58 X10^6/uL (4.0-5.2); Red Cell Distribution Width 13.7 % (11.6-14.8); White Blood Cell Count 4.9 X10^3/uL (4.5-11.0)
[2022-10-21 08:18] LABS: Add Manual Diff / Slide Review YES
[2022-10-21 08:37] LABS: Alanine Aminotransferase 20 IU/L (<35); Albumin 4.2 g/dL (3.5-5.0); Albumin Globulin Ratio 1.5 (1.0-2.8); Alkaline Phosphatase 47 U/L (38-126); Aspartate Aminotransferase 20 IU/L (14-36); Bilirubin Total 0.4 mg/dL (0.2-1.3); Blood Urea Nitrogen 18 mg/dL (7-17); Calcium 9.2 mg/dL (8.4-10.2); Carbon Dioxide 28 mmol/L (22-32); Chloride 101 mmol/L (98-107); Estimated Glomerular Filt Rate > 60 mL/min (>60); Globulin 2.8 g/dL (1.7-4.1); Glucose 100 mg/dL (80-110); HEMOLYSIS < 15 (0-50); Potassium 4.7 mmol/L (3.4-5.1); Sodium 137 mmol/L (137-145)
[2022-10-21 08:40] LABS: Neutrophils Absolute Manual 1176 /uL (3000-5900); Total Cells Counted 100
[2022-10-21 08:42] LABS: Macrocytosis 2+
[2022-10-21 09:03] LABS: Carcinoembryonic Antigen 2.9 ng/mL (0.1-3.0)
[2022-10-23 07:39] LABS: CA 15-3 38.3 U/mL (0.0-25.0); Cancer Antigen 27.29 55.1 U/mL (0.0-38.6)
== END ==
PROVIDERS: PCP Nurse Practitioner Family; Referring Provider Internal Medicine Medical Oncology; Visit Provider Internal Medicine Medical Oncology
DX: C50.412 Malignant neoplasm of upper-outer quadrant of left female breast (principal); M89.9 Disorder of bone, unspecified
CPT/HCPCS: 36415; 80053; 82378; 85007; 85025; 86300

== ENCOUNTER → 2022-11-18 06:55 | Outpatient (CLI) | payer MEDICARE, OTHER, SELFPAY ==
[2022-11-18 08:11] LABS: Hematocrit 37.5 % (36-46); Mean Corpuscular HGB Conc 34.6 % (30-36); Mean Corpuscular Hemoglobin 36.4 PG (26-34); Mean Corpuscular Volume 105.3 fL (80-100); Platelet Count 186 X10^3/uL (150-400); Red Blood Cell Count 3.56 X10^6/uL (4.0-5.2); Red Cell Distribution Width 14.2 % (11.6-14.8); White Blood Cell Count 4.2 X10^3/uL (4.5-11.0)
[2022-11-18 08:27] LABS: Add Manual Diff / Slide Review YES
[2022-11-18 08:50] LABS: Total Cells Counted 100
[2022-11-18 08:51] LABS: Macrocytosis 1+; Smudge Cells 1+
[2022-11-18 08:56] LABS: HEMOLYSIS < 15 (0-50)
[2022-11-18 08:58] LABS: Neutrophils Absolute Manual 672 /uL (3000-5900)
[2022-11-18 09:04] LABS: Alanine Aminotransferase 19 IU/L (<35); Albumin 4.2 g/dL (3.5-5.0); Albumin Globulin Ratio 1.6 (1.0-2.8); Alkaline Phosphatase 54 U/L (38-126); Aspartate Aminotransferase 21 IU/L (14-36); BUN Creatinine Ratio 22.1 (6-22); Bilirubin Total 0.5 mg/dL (0.2-1.3); Blood Urea Nitrogen 15 mg/dL (7-17); Calcium 9.2 mg/dL (8.4-10.2); Carbon Dioxide 29 mmol/L (22-32); Estimated Glomerular Filt Rate > 60 mL/min (>60); Globulin 2.7 g/dL (1.7-4.1); Glucose 122 mg/dL (80-110); Total Protein 6.9 g/dL (6.3-8.2)
[2022-11-18 09:08] LABS: Chloride 103 mmol/L (98-107); Potassium 4.4 mmol/L (3.4-5.1); Sodium 139 mmol/L (137-145)
[2022-11-18 17:22] LABS: Carcinoembryonic Antigen 3.2 ng/mL (0.1-3.0)
[2022-11-19 17:56] LABS: CA 15-3 43.8 U/mL (0.0-25.0)
[2022-11-20 11:30] LABS: Cancer Antigen 27.29 53.2 U/mL (0.0-38.6)
== END ==
PROVIDERS: PCP Nurse Practitioner Family; Referring Provider Internal Medicine Medical Oncology; Visit Provider Internal Medicine Medical Oncology
DX: C50.412 Malignant neoplasm of upper-outer quadrant of left female breast (principal); M89.9 Disorder of bone, unspecified
CPT/HCPCS: 36415; 80053; 82378; 85007; 85025; 86300

== ENCOUNTER → 2022-11-27 06:54 | Outpatient (CLI) | payer MEDICARE, OTHER, SELFPAY ==
[2022-11-27 07:47] LABS: Add Manual Diff / Slide Review NO; Basophils Absolute Auto 100 /uL (0-100); Basophils Percent Auto 2.2 % (0-2); Eosinophils Absolute Auto 100 /uL (0-450); Eosinophils Percent Auto 2.1 % (2-4); Hematocrit 39.1 % (36-46); Hemoglobin 13.2 g/dL (12.0-16.0); Lymphocytes Absolute Auto 3800 /uL (1100-4500); Lymphocytes Percent Auto 56.7 % (25-40); Mean Corpuscular HGB Conc 33.8 % (30-36); Mean Corpuscular Hemoglobin 35.6 PG (26-34); Mean Corpuscular Volume 105.3 fL (80-100); Monocytes Absolute Auto 900 /uL (0-900); Monocytes Percent Auto 13.2 % (3-14); Neutrophils Absolute Auto 1700 /uL (1500-7000); Neutrophils Percent Auto 25.8 % (50-75); Platelet Count 178 X10^3/uL (150-400); Red Blood Cell Count 3.71 X10^6/uL (4.0-5.2); Red Cell Distribution Width 14.4 % (11.6-14.8); White Blood Cell Count 6.7 X10^3/uL (4.5-11.0)
== END ==
PROVIDERS: PCP Nurse Practitioner Family; Referring Provider Internal Medicine Medical Oncology; Visit Provider Internal Medicine Medical Oncology
DX: C50.811 Malignant neoplasm of overlapping sites of right female breast (principal); Z17.0 Estrogen receptor positive status [ER+]
CPT/HCPCS: 36415; 85025

== ENCOUNTER → 2022-12-24 06:55 | Outpatient (CLI) | payer MEDICARE, OTHER, SELFPAY ==
[2022-12-24 08:28] LABS: Add Manual Diff / Slide Review NO; Basophils Absolute Auto 100 /uL (0-100); Basophils Percent Auto 2.5 % (0-2); Eosinophils Absolute Auto 100 /uL (0-450); Eosinophils Percent Auto 2.3 % (2-4); Hematocrit 36.1 % (36-46); Hemoglobin 12.3 g/dL (12.0-16.0); Lymphocytes Absolute Auto 2800 /uL (1100-4500); Lymphocytes Percent Auto 60.5 % (25-40); Mean Corpuscular Hemoglobin 35.8 PG (26-34); Mean Corpuscular Volume 105.5 fL (80-100); Monocytes Absolute Auto 400 /uL (0-900); Monocytes Percent Auto 8.2 % (3-14); Neutrophils Absolute Auto 1200 /uL (1500-7000); Neutrophils Percent Auto 26.5 % (50-75); Platelet Count 158 X10^3/uL (150-400); Red Blood Cell Count 3.42 X10^6/uL (4.0-5.2); Red Cell Distribution Width 14.5 % (11.6-14.8); White Blood Cell Count 4.6 X10^3/uL (4.5-11.0)
[2022-12-24 08:46] LABS: Alanine Aminotransferase 24 IU/L (<35); Albumin Globulin Ratio 1.5 (1.0-2.8); Alkaline Phosphatase 50 U/L (38-126); Aspartate Aminotransferase 23 IU/L (14-36); Bilirubin Total 0.4 mg/dL (0.2-1.3); Blood Urea Nitrogen 16 mg/dL (7-17); Calcium 9.1 mg/dL (8.4-10.2); Carbon Dioxide 30 mmol/L (22-32); Chloride 102 mmol/L (98-107); Estimated Glomerular Filt Rate > 60 mL/min (>60); Globulin 2.7 g/dL (1.7-4.1); Glucose 118 mg/dL (80-110); HEMOLYSIS < 15 (0-50); Potassium 4.2 mmol/L (3.4-5.1); Sodium 138 mmol/L (137-145); Total Protein 6.7 g/dL (6.3-8.2)
[2022-12-25 14:09] LABS: CA 15-3 42.9 U/mL (0.0-25.0)
[2022-12-26 10:10] LABS: Cancer Antigen 27.29 53.5 U/mL (0.0-38.6)
== END ==
PROVIDERS: PCP Nurse Practitioner Family; Referring Provider Internal Medicine Medical Oncology; Visit Provider Internal Medicine Medical Oncology
DX: C50.811 Malignant neoplasm of overlapping sites of right female breast (principal); Z17.0 Estrogen receptor positive status [ER+]
CPT/HCPCS: 36415; 80053; 82378; 85025; 86300

== ENCOUNTER → 2023-01-21 06:56 | Outpatient (CLI) | payer MEDICARE, OTHER, SELFPAY ==
[2023-01-21 08:42] LABS: Add Manual Diff / Slide Review NO; Basophils Absolute Auto 100 /uL (0-100); Basophils Percent Auto 3.4 % (0-2); Eosinophils Absolute Auto 100 /uL (0-450); Eosinophils Percent Auto 1.8 % (2-4); Hematocrit 36.9 % (36-46); Hemoglobin 12.4 g/dL (12.0-16.0); Lymphocytes Absolute Auto 2600 /uL (1100-4500); Lymphocytes Percent Auto 58.5 % (25-40); Mean Corpuscular HGB Conc 33.6 % (30-36); Mean Corpuscular Hemoglobin 35.7 PG (26-34); Mean Corpuscular Volume 106.5 fL (80-100); Monocytes Absolute Auto 400 /uL (0-900); Monocytes Percent Auto 9.2 % (3-14); Neutrophils Absolute Auto 1200 /uL (1500-7000); Neutrophils Percent Auto 27.1 % (50-75); Platelet Count 205 X10^3/uL (150-400); Red Blood Cell Count 3.47 X10^6/uL (4.0-5.2); Red Cell Distribution Width 15.4 % (11.6-14.8); White Blood Cell Count 4.4 X10^3/uL (4.5-11.0)
[2023-01-21 08:57] LABS: Alanine Aminotransferase 19 IU/L (<35); Albumin 4.1 g/dL (3.5-5.0); Albumin Globulin Ratio 1.5 (1.0-2.8); Alkaline Phosphatase 51 U/L (38-126); Aspartate Aminotransferase 21 IU/L (14-36); Bilirubin Total 0.4 mg/dL (0.2-1.3); Blood Urea Nitrogen 19 mg/dL (7-17); Calcium 9.4 mg/dL (8.4-10.2); Carbon Dioxide 31 mmol/L (22-32); Chloride 102 mmol/L (98-107); Estimated Glomerular Filt Rate > 60 mL/min (>60); Globulin 2.7 g/dL (1.7-4.1); Glucose 113 mg/dL (80-110); HEMOLYSIS < 15 (0-50); Potassium 4.4 mmol/L (3.4-5.1); Sodium 139 mmol/L (137-145); Total Protein 6.8 g/dL (6.3-8.2)
[2023-01-21 09:28] LABS: Carcinoembryonic Antigen 2.9 ng/mL (0.1-3.0)
[2023-01-21 22:36] LABS: CA 15-3 37.2 U/mL (0.0-25.0)
[2023-01-22 10:30] LABS: Cancer Antigen 27.29 48.6 U/mL (0.0-38.6)
== END ==
PROVIDERS: PCP Nurse Practitioner Family; Referring Provider Internal Medicine Medical Oncology; Visit Provider Internal Medicine Medical Oncology
DX: C50.811 Malignant neoplasm of overlapping sites of right female breast (principal); Z17.0 Estrogen receptor positive status [ER+]
CPT/HCPCS: 36415; 80053; 82378; 85025; 86300

== ENCOUNTER → 2023-02-17 06:58 | Outpatient (CLI) | payer MEDICARE, OTHER, SELFPAY ==
[2023-02-17 07:53] LABS: Add Manual Diff / Slide Review NO; Basophils Absolute Auto 100 /uL (0-100); Basophils Percent Auto 2.5 % (0-2); Eosinophils Absolute Auto 100 /uL (0-450); Eosinophils Percent Auto 1.7 % (2-4); Hematocrit 36.9 % (36-46); Hemoglobin 12.6 g/dL (12.0-16.0); Lymphocytes Absolute Auto 2600 /uL (1100-4500); Lymphocytes Percent Auto 47.8 % (25-40); Mean Corpuscular HGB Conc 34.2 % (30-36); Mean Corpuscular Hemoglobin 35.6 PG (26-34); Mean Corpuscular Volume 103.9 fL (80-100); Monocytes Absolute Auto 400 /uL (0-900); Monocytes Percent Auto 7.5 % (3-14); Neutrophils Absolute Auto 2200 /uL (1500-7000); Neutrophils Percent Auto 40.5 % (50-75); Platelet Count 197 X10^3/uL (150-400); Red Blood Cell Count 3.55 X10^6/uL (4.0-5.2); Red Cell Distribution Width 14.9 % (11.6-14.8); White Blood Cell Count 5.4 X10^3/uL (4.5-11.0)
[2023-02-17 07:59] LABS: Alanine Aminotransferase 19 IU/L (<35); Albumin 4.2 g/dL (3.5-5.0); Albumin Globulin Ratio 1.6 (1.0-2.8); Alkaline Phosphatase 53 U/L (38-126); Aspartate Aminotransferase 21 IU/L (14-36); BUN Creatinine Ratio 16.7 (6-22); Bilirubin Total 0.6 mg/dL (0.2-1.3); Blood Urea Nitrogen 12 mg/dL (7-17); Calcium 9.3 mg/dL (8.4-10.2); Carbon Dioxide 32 mmol/L (22-32); Chloride 100 mmol/L (98-107); Estimated Glomerular Filt Rate > 60 mL/min (>60); Globulin 2.7 g/dL (1.7-4.1); Glucose 119 mg/dL (80-110); HEMOLYSIS < 15 (0-50); Potassium 4.6 mmol/L (3.4-5.1); Sodium 136 mmol/L (137-145); Total Protein 6.9 g/dL (6.3-8.2)
[2023-02-18 06:36] LABS: CA 15-3 36.9 U/mL (0.0-25.0)
[2023-02-18 10:38] LABS: Cancer Antigen 27.29 50.7 U/mL (0.0-38.6)
== END ==
PROVIDERS: PCP Nurse Practitioner Family; Referring Provider Internal Medicine Medical Oncology; Visit Provider Internal Medicine Medical Oncology
DX: C50.811 Malignant neoplasm of overlapping sites of right female breast (principal); Z17.0 Estrogen receptor positive status [ER+]
CPT/HCPCS: 36415; 80053; 82378; 85025; 86300

== ENCOUNTER → 2023-03-18 06:56 | Outpatient (CLI) | payer MEDICARE, OTHER, SELFPAY ==
[2023-03-18 07:49] LABS: Add Manual Diff / Slide Review NO; Basophils Absolute Auto 100 /uL (0-100); Basophils Percent Auto 2.3 % (0-2); Eosinophils Absolute Auto 100 /uL (0-450); Hematocrit 37.2 % (36-46); Hemoglobin 12.6 g/dL (12.0-16.0); Lymphocytes Absolute Auto 2400 /uL (1100-4500); Lymphocytes Percent Auto 49.4 % (25-40); Mean Corpuscular HGB Conc 33.9 % (30-36); Mean Corpuscular Hemoglobin 35.2 PG (26-34); Mean Corpuscular Volume 103.7 fL (80-100); Monocytes Absolute Auto 400 /uL (0-900); Monocytes Percent Auto 7.7 % (3-14); Neutrophils Absolute Auto 1900 /uL (1500-7000); Neutrophils Percent Auto 38.6 % (50-75); Platelet Count 197 X10^3/uL (150-400); Red Blood Cell Count 3.59 X10^6/uL (4.0-5.2); Red Cell Distribution Width 14.9 % (11.6-14.8); White Blood Cell Count 4.9 X10^3/uL (4.5-11.0)
[2023-03-18 08:03] LABS: Alanine Aminotransferase 19 IU/L (<35); Albumin 4.2 g/dL (3.5-5.0); Albumin Globulin Ratio 1.6 (1.0-2.8); Alkaline Phosphatase 48 U/L (38-126); Aspartate Aminotransferase 24 IU/L (14-36); BUN Creatinine Ratio 23.5 (6-22); Bilirubin Total 0.5 mg/dL (0.2-1.3); Blood Urea Nitrogen 16 mg/dL (7-17); Calcium 9.3 mg/dL (8.4-10.2); Carbon Dioxide 29 mmol/L (22-32); Chloride 102 mmol/L (98-107); Estimated Glomerular Filt Rate > 60 mL/min (>60); Globulin 2.7 g/dL (1.7-4.1); Glucose 124 mg/dL (80-110); HEMOLYSIS < 15 (0-50); Potassium 4.6 mmol/L (3.4-5.1); Sodium 138 mmol/L (137-145); Total Protein 6.9 g/dL (6.3-8.2)
[2023-03-18 08:30] LABS: Carcinoembryonic Antigen 2.9 ng/mL (0.1-3.0)
[2023-03-19 07:40] LABS: CA 15-3 45.8 U/mL (0.0-25.0)
[2023-03-19 09:16] LABS: Cancer Antigen 27.29 55.8 U/mL (0.0-38.6)
== END ==
PROVIDERS: PCP Nurse Practitioner Family; Referring Provider Internal Medicine Medical Oncology; Visit Provider Internal Medicine Medical Oncology
DX: C50.811 Malignant neoplasm of overlapping sites of right female breast (principal); Z17.0 Estrogen receptor positive status [ER+]
CPT/HCPCS: 36415; 80053; 82378; 85025; 86300

== ENCOUNTER → 2023-04-14 06:55 | Outpatient (CLI) | payer MEDICARE, OTHER, SELFPAY ==
[2023-04-14 07:54] LABS: Basophils Absolute Auto 100 /uL (0-100); Basophils Percent Auto 2.8 % (0-2); Eosinophils Absolute Auto 100 /uL (0-450); Eosinophils Percent Auto 2.2 % (2-4); Hematocrit 37.9 % (36-46); Hemoglobin 12.8 g/dL (12.0-16.0); Lymphocytes Absolute Auto 2500 /uL (1100-4500); Lymphocytes Percent Auto 59.6 % (25-40); Mean Corpuscular HGB Conc 33.8 % (30-36); Mean Corpuscular Hemoglobin 35.9 PG (26-34); Mean Corpuscular Volume 106.2 fL (80-100); Monocytes Absolute Auto 300 /uL (0-900); Monocytes Percent Auto 8.1 % (3-14); Neutrophils Absolute Auto 1100 /uL (1500-7000); Neutrophils Percent Auto 27.3 % (50-75); Platelet Count 195 X10^3/uL (150-400); Red Blood Cell Count 3.57 X10^6/uL (4.0-5.2); Red Cell Distribution Width 14.4 % (11.6-14.8); White Blood Cell Count 4.1 X10^3/uL (4.5-11.0)
[2023-04-14 07:55] LABS: Add Manual Diff / Slide Review SLIDE REVIEW
[2023-04-14 08:30] LABS: Alanine Aminotransferase 20 IU/L (<35); Albumin 4.1 g/dL (3.5-5.0); Albumin Globulin Ratio 1.5 (1.0-2.8); Alkaline Phosphatase 49 U/L (38-126); Aspartate Aminotransferase 22 IU/L (14-36); BUN Creatinine Ratio 24.6 (6-22); Bilirubin Total 0.5 mg/dL (0.2-1.3); Blood Urea Nitrogen 17 mg/dL (7-17); Calcium 9.8 mg/dL (8.4-10.2); Carbon Dioxide 29 mmol/L (22-32); Chloride 101 mmol/L (98-107); Estimated Glomerular Filt Rate > 60 mL/min (>60); Globulin 2.7 g/dL (1.7-4.1); Glucose 116 mg/dL (80-110); HEMOLYSIS < 15 (0-50); Potassium 4.4 mmol/L (3.4-5.1); Sodium 137 mmol/L (137-145); Total Protein 6.8 g/dL (6.3-8.2)
[2023-04-14 08:43] LABS: Macrocytosis 1+
[2023-04-15 00:03] LABS: CA 15-3 44.2 U/mL (0.0-25.0)
[2023-04-15 10:09] LABS: Cancer Antigen 27.29 57.1 U/mL (0.0-38.6)
== END ==
PROVIDERS: PCP Nurse Practitioner Family; Referring Provider Internal Medicine Medical Oncology; Visit Provider Internal Medicine Medical Oncology
DX: C50.412 Malignant neoplasm of upper-outer quadrant of left female breast (principal); M89.9 Disorder of bone, unspecified
CPT/HCPCS: 36415; 80053; 82378; 85025; 86300

== ENCOUNTER → 2023-05-12 06:55 | Outpatient (CLI) | payer MEDICARE, OTHER, SELFPAY ==
[2023-05-12 08:25] LABS: Alanine Aminotransferase 18 IU/L (<35); Albumin 4.1 g/dL (3.5-5.0); Albumin Globulin Ratio 1.5 (1.0-2.8); Alkaline Phosphatase 47 U/L (38-126); Aspartate Aminotransferase 22 IU/L (14-36); BUN Creatinine Ratio 21.5 (6-22); Bilirubin Total 0.4 mg/dL (0.2-1.3); Blood Urea Nitrogen 14 mg/dL (7-17); Calcium 9.6 mg/dL (8.4-10.2); Carbon Dioxide 28 mmol/L (22-32); Chloride 101 mmol/L (98-107); Estimated Glomerular Filt Rate > 60 mL/min (>60); Globulin 2.7 g/dL (1.7-4.1); Glucose 115 mg/dL (80-110); HEMOLYSIS < 15 (0-50); Potassium 4.5 mmol/L (3.4-5.1); Sodium 137 mmol/L (137-145); Total Protein 6.8 g/dL (6.3-8.2)
[2023-05-12 08:37] LABS: Add Manual Diff / Slide Review NO; Basophils Absolute Auto 100 /uL (0-100); Basophils Percent Auto 3.1 % (0-2); Eosinophils Absolute Auto 100 /uL (0-450); Eosinophils Percent Auto 2.1 % (2-4); Hematocrit 37.2 % (36-46); Hemoglobin 12.6 g/dL (12.0-16.0); Lymphocytes Absolute Auto 2600 /uL (1100-4500); Lymphocytes Percent Auto 60.2 % (25-40); Mean Corpuscular Hemoglobin 35.9 PG (26-34); Mean Corpuscular Volume 105.6 fL (80-100); Monocytes Absolute Auto 300 /uL (0-900); Monocytes Percent Auto 8.1 % (3-14); Neutrophils Absolute Auto 1100 /uL (1500-7000); Neutrophils Percent Auto 26.5 % (50-75); Platelet Count 191 X10^3/uL (150-400); Red Blood Cell Count 3.52 X10^6/uL (4.0-5.2); Red Cell Distribution Width 14.4 % (11.6-14.8); White Blood Cell Count 4.2 X10^3/uL (4.5-11.0)
[2023-05-12 09:00] LABS: Carcinoembryonic Antigen 2.9 ng/mL (0.1-3.0)
[2023-05-13 07:36] LABS: CA 15-3 41.4 U/mL (0.0-25.0)
[2023-05-13 10:32] LABS: Cancer Antigen 27.29 47.5 U/mL (0.0-38.6)
== END ==
PROVIDERS: PCP Nurse Practitioner Family; Referring Provider Internal Medicine Medical Oncology; Visit Provider Internal Medicine Medical Oncology
DX: C50.811 Malignant neoplasm of overlapping sites of right female breast (principal); Z17.0 Estrogen receptor positive status [ER+]
CPT/HCPCS: 36415; 80053; 82378; 85025; 86300

== ENCOUNTER → 2023-06-09 06:54 | Outpatient (CLI) | payer MEDICARE, OTHER, SELFPAY ==
[2023-06-09 09:23] LABS: Basophils Absolute Auto 100 /uL (0-100); Eosinophils Absolute Auto 100 /uL (0-450); Eosinophils Percent Auto 1.9 % (2-4); Hematocrit 36.8 % (36-46); Hemoglobin 12.5 g/dL (12.0-16.0); Lymphocytes Absolute Auto 2400 /uL (1100-4500); Lymphocytes Percent Auto 61.2 % (25-40); Mean Corpuscular Hemoglobin 35.8 PG (26-34); Mean Corpuscular Volume 105.4 fL (80-100); Monocytes Absolute Auto 300 /uL (0-900); Monocytes Percent Auto 8.7 % (3-14); Neutrophils Absolute Auto 1000 /uL (1500-7000); Neutrophils Percent Auto 26.2 % (50-75); Platelet Count 197 X10^3/uL (150-400); Red Blood Cell Count 3.49 X10^6/uL (4.0-5.2); Red Cell Distribution Width 14.2 % (11.6-14.8); White Blood Cell Count 3.9 X10^3/uL (4.5-11.0)
[2023-06-09 09:24] LABS: Add Manual Diff / Slide Review SLIDE REVIEW
[2023-06-09 09:33] LABS: Alanine Aminotransferase 18 IU/L (<35); Albumin Globulin Ratio 1.5 (1.0-2.8); Alkaline Phosphatase 48 U/L (38-126); Aspartate Aminotransferase 22 IU/L (14-36); BUN Creatinine Ratio 23.5 (6-22); Bilirubin Total 0.5 mg/dL (0.2-1.3); Blood Urea Nitrogen 16 mg/dL (7-17); Calcium 9.6 mg/dL (8.4-10.2); Carbon Dioxide 28 mmol/L (22-32); Chloride 104 mmol/L (98-107); Estimated Glomerular Filt Rate > 60 mL/min (>60); Globulin 2.6 g/dL (1.7-4.1); Glucose 102 mg/dL (80-110); HEMOLYSIS < 15 (0-50); Potassium 4.6 mmol/L (3.4-5.1); Sodium 137 mmol/L (137-145); Total Protein 6.6 g/dL (6.3-8.2)
[2023-06-09 09:38] LABS: Macrocytosis 1+; RBC Morphology See
[2023-06-09 10:02] LABS: Carcinoembryonic Antigen 3.2 ng/mL (0.1-3.0)
[2023-06-10 06:58] LABS: CA 15-3 41.4 U/mL (0.0-25.0)
[2023-06-10 09:14] LABS: Cancer Antigen 27.29 45.9 U/mL (0.0-38.6)
== END ==
PROVIDERS: PCP Nurse Practitioner Family; Referring Provider Internal Medicine Medical Oncology; Visit Provider Internal Medicine Medical Oncology
DX: C50.811 Malignant neoplasm of overlapping sites of right female breast (principal); Z17.0 Estrogen receptor positive status [ER+]
CPT/HCPCS: 36415; 80053; 82378; 85025; 86300

== ENCOUNTER → 2023-07-07 06:54 | Outpatient (CLI) | payer MEDICARE, OTHER, SELFPAY ==
[2023-07-07 08:53] LABS: Add Manual Diff / Slide Review NO; Basophils Absolute Auto 100 /uL (0-100); Basophils Percent Auto 2.9 % (0-2); Eosinophils Absolute Auto 100 /uL (0-450); Eosinophils Percent Auto 2.5 % (2-4); Hematocrit 37.6 % (36-46); Hemoglobin 12.9 g/dL (12.0-16.0); Lymphocytes Absolute Auto 2500 /uL (1100-4500); Lymphocytes Percent Auto 60.4 % (25-40); Mean Corpuscular HGB Conc 34.3 % (30-36); Mean Corpuscular Hemoglobin 36.2 PG (26-34); Mean Corpuscular Volume 105.5 fL (80-100); Monocytes Absolute Auto 300 /uL (0-900); Neutrophils Absolute Auto 1100 /uL (1500-7000); Neutrophils Percent Auto 26.2 % (50-75); Platelet Count 202 X10^3/uL (150-400); Red Blood Cell Count 3.56 X10^6/uL (4.0-5.2); Red Cell Distribution Width 14.1 % (11.6-14.8); White Blood Cell Count 4.1 X10^3/uL (4.5-11.0)
[2023-07-07 09:15] LABS: Alanine Aminotransferase 19 IU/L (<35); Albumin Globulin Ratio 1.4 (1.0-2.8); Alkaline Phosphatase 55 U/L (38-126); Aspartate Aminotransferase 23 IU/L (14-36); BUN Creatinine Ratio 21.9 (6-22); Bilirubin Total 0.5 mg/dL (0.2-1.3); Blood Urea Nitrogen 14 mg/dL (7-17); Calcium 9.6 mg/dL (8.4-10.2); Carbon Dioxide 29 mmol/L (22-32); Chloride 102 mmol/L (98-107); Estimated Glomerular Filt Rate > 60 mL/min (>60); Globulin 2.9 g/dL (1.7-4.1); Glucose 104 mg/dL (80-110); HEMOLYSIS < 15 (0-50); Potassium 4.5 mmol/L (3.4-5.1); Sodium 137 mmol/L (137-145); Total Protein 6.9 g/dL (6.3-8.2)
[2023-07-07 09:41] LABS: Carcinoembryonic Antigen 3.2 ng/mL (0.1-3.0)
[2023-07-08 07:30] LABS: CA 15-3 41.3 U/mL (0.0-25.0)
[2023-07-08 11:30] LABS: Cancer Antigen 27.29 49.2 U/mL (0.0-38.6)
== END ==
PROVIDERS: PCP Nurse Practitioner Family; Referring Provider Internal Medicine Medical Oncology; Visit Provider Internal Medicine Medical Oncology
DX: C50.811 Malignant neoplasm of overlapping sites of right female breast (principal); Z17.0 Estrogen receptor positive status [ER+]
CPT/HCPCS: 36415; 80053; 82378; 85025; 86300

== ENCOUNTER → 2023-08-04 06:56 | Outpatient (CLI) | payer MEDICARE, OTHER, SELFPAY ==
[2023-08-04 08:19] LABS: Alanine Aminotransferase 19 IU/L (<35); Albumin 4.3 g/dL (3.5-5.0); Albumin Globulin Ratio 1.3 (1.0-2.8); Alkaline Phosphatase 53 U/L (38-126); Aspartate Aminotransferase 23 IU/L (14-36); BUN Creatinine Ratio 25.4 (6-22); Bilirubin Total 0.6 mg/dL (0.2-1.3); Blood Urea Nitrogen 17 mg/dL (7-17); Calcium 9.5 mg/dL (8.4-10.2); Carbon Dioxide 27 mmol/L (22-32); Chloride 101 mmol/L (98-107); Estimated Glomerular Filt Rate > 60 mL/min (>60); Globulin 3.4 g/dL (1.7-4.1); Glucose 109 mg/dL (80-110); HEMOLYSIS < 15 (0-50); Potassium 4.3 mmol/L (3.4-5.1); Sodium 137 mmol/L (137-145); Total Protein 7.7 g/dL (6.3-8.2)
[2023-08-04 08:20] LABS: Hematocrit 38.4 % (36-46); Mean Corpuscular HGB Conc 33.9 % (30-36); Mean Corpuscular Hemoglobin 35.7 PG (26-34); Mean Corpuscular Volume 105.3 fL (80-100); Platelet Count 234 X10^3/uL (150-400); Red Blood Cell Count 3.65 X10^6/uL (4.0-5.2); Red Cell Distribution Width 13.9 % (11.6-14.8); White Blood Cell Count 4.9 X10^3/uL (4.5-11.0)
[2023-08-04 08:21] LABS: Add Manual Diff / Slide Review YES
[2023-08-04 08:39] LABS: Carcinoembryonic Antigen 3.4 ng/mL (0.1-3.0)
[2023-08-04 10:25] LABS: Neutrophils Absolute Manual 1568 /uL (3000-5900); RBC Morphology Normal Morphology; Total Cells Counted 100
[2023-08-05 06:38] LABS: CA 15-3 41.8 U/mL (0.0-25.0)
[2023-08-05 07:36] LABS: Cancer Antigen 27.29 51.1 U/mL (0.0-38.6)
== END ==
PROVIDERS: PCP Nurse Practitioner Family; Referring Provider Internal Medicine Medical Oncology; Visit Provider Internal Medicine Medical Oncology
DX: C50.811 Malignant neoplasm of overlapping sites of right female breast (principal); Z17.0 Estrogen receptor positive status [ER+]
CPT/HCPCS: 36415; 80053; 82378; 85007; 85025; 86300

== ENCOUNTER → 2023-09-02 06:52 | Outpatient (CLI) | payer MEDICARE, OTHER, SELFPAY ==
[2023-09-02 07:45] LABS: Add Manual Diff / Slide Review NO; Basophils Absolute Auto 100 /uL (0-100); Basophils Percent Auto 3.2 % (0-2); Eosinophils Absolute Auto 100 /uL (0-450); Eosinophils Percent Auto 2.3 % (2-4); Hematocrit 37.1 % (36-46); Hemoglobin 12.4 g/dL (12.0-16.0); Lymphocytes Absolute Auto 2300 /uL (1100-4500); Lymphocytes Percent Auto 56.5 % (25-40); Mean Corpuscular HGB Conc 33.3 % (30-36); Mean Corpuscular Hemoglobin 35.2 PG (26-34); Mean Corpuscular Volume 105.6 fL (80-100); Monocytes Absolute Auto 400 /uL (0-900); Monocytes Percent Auto 9.8 % (3-14); Neutrophils Absolute Auto 1200 /uL (1500-7000); Neutrophils Percent Auto 28.2 % (50-75); Platelet Count 209 X10^3/uL (150-400); Red Blood Cell Count 3.52 X10^6/uL (4.0-5.2); Red Cell Distribution Width 14.4 % (11.6-14.8); White Blood Cell Count 4.1 X10^3/uL (4.5-11.0)
[2023-09-02 08:09] LABS: Alanine Aminotransferase 17 IU/L (<35); Albumin Globulin Ratio 1.4 (1.0-2.8); Alkaline Phosphatase 54 U/L (38-126); Aspartate Aminotransferase 21 IU/L (14-36); Bilirubin Total 0.6 mg/dL (0.2-1.3); Blood Urea Nitrogen 14 mg/dL (7-17); Calcium 9.2 mg/dL (8.4-10.2); Carbon Dioxide 29 mmol/L (22-32); Chloride 103 mmol/L (98-107); Estimated Glomerular Filt Rate > 60 mL/min (>60); Globulin 2.8 g/dL (1.7-4.1); Glucose 117 mg/dL (80-110); HEMOLYSIS < 15 (0-50); Potassium 4.6 mmol/L (3.4-5.1); Sodium 138 mmol/L (137-145); Total Protein 6.8 g/dL (6.3-8.2)
== END ==
PROVIDERS: PCP Nurse Practitioner Family; Referring Provider Internal Medicine Medical Oncology; Visit Provider Internal Medicine Medical Oncology
DX: C50.811 Malignant neoplasm of overlapping sites of right female breast (principal); Z17.0 Estrogen receptor positive status [ER+]
CPT/HCPCS: 36415; 80053; 82378; 85025; 86300

== ENCOUNTER → 2023-09-29 06:55 | Outpatient (CLI) | payer MEDICARE, OTHER, SELFPAY ==
[2023-09-29 08:33] LABS: Hematocrit 36.3 % (36-46); Hemoglobin 12.4 g/dL (12.0-16.0); Mean Corpuscular HGB Conc 34.1 % (30-36); Mean Corpuscular Hemoglobin 36.2 PG (26-34); Mean Corpuscular Volume 106.1 fL (80-100); Platelet Count 180 X10^3/uL (150-400); Red Blood Cell Count 3.42 X10^6/uL (4.0-5.2); Red Cell Distribution Width 14.7 % (11.6-14.8); White Blood Cell Count 4.2 X10^3/uL (4.5-11.0)
[2023-09-29 08:34] LABS: Add Manual Diff / Slide Review YES
[2023-09-29 09:19] LABS: Alanine Aminotransferase 19 IU/L (<35); Albumin Globulin Ratio 1.4 (1.0-2.8); Alkaline Phosphatase 55 U/L (38-126); Aspartate Aminotransferase 23 IU/L (14-36); BUN Creatinine Ratio 28.4 (6-22); Bilirubin Total 0.5 mg/dL (0.2-1.3); Blood Urea Nitrogen 21 mg/dL (7-17); Calcium 9.1 mg/dL (8.4-10.2); Carbon Dioxide 27 mmol/L (22-32); Chloride 108 mmol/L (98-107); Estimated Glomerular Filt Rate > 60 mL/min (>60); Globulin 2.8 g/dL (1.7-4.1); Glucose 104 mg/dL (80-110); HEMOLYSIS < 15 (0-50); Potassium 4.5 mmol/L (3.4-5.1); Sodium 139 mmol/L (137-145); Total Protein 6.8 g/dL (6.3-8.2)
[2023-09-29 09:32] LABS: Neutrophils Absolute Manual 1134 /uL (3000-5900); Nucleated Red Blood Cells 1 #/Diff; Total Cells Counted 100
[2023-09-29 09:35] LABS: Macrocytosis 1+
[2023-09-29 09:39] LABS: Carcinoembryonic Antigen 3.1 ng/mL (0.1-3.0)
[2023-09-30 16:40] LABS: CA 15-3 39.4 U/mL (0.0-25.0)
[2023-10-01 08:57] LABS: Cancer Antigen 27.29 50.1 U/mL (0.0-38.6)
== END ==
PROVIDERS: PCP Nurse Practitioner Family; Referring Provider Internal Medicine Medical Oncology; Visit Provider Internal Medicine Medical Oncology
DX: C50.811 Malignant neoplasm of overlapping sites of right female breast (principal); Z17.0 Estrogen receptor positive status [ER+]
CPT/HCPCS: 36415; 80053; 82378; 85007; 85025; 86300

== ENCOUNTER → 2023-10-27 06:50 | Outpatient (CLI) | payer MEDICARE, OTHER, SELFPAY ==
[2023-10-27 07:44] LABS: Add Manual Diff / Slide Review NO; Basophils Absolute Auto 100 /uL (0-100); Basophils Percent Auto 1.3 % (0-2); Eosinophils Absolute Auto 100 /uL (0-450); Eosinophils Percent Auto 1.8 % (2-4); Hematocrit 37.2 % (36-46); Hemoglobin 12.6 g/dL (12.0-16.0); Lymphocytes Absolute Auto 2300 /uL (1100-4500); Lymphocytes Percent Auto 59.5 % (25-40); Mean Corpuscular HGB Conc 33.9 % (30-36); Mean Corpuscular Hemoglobin 36.2 PG (26-34); Mean Corpuscular Volume 106.6 fL (80-100); Monocytes Absolute Auto 300 /uL (0-900); Monocytes Percent Auto 8.1 % (3-14); Neutrophils Absolute Auto 1100 /uL (1500-7000); Neutrophils Percent Auto 29.3 % (50-75); Platelet Count 186 X10^3/uL (150-400); Red Blood Cell Count 3.49 X10^6/uL (4.0-5.2); Red Cell Distribution Width 14.2 % (11.6-14.8); White Blood Cell Count 3.9 X10^3/uL (4.5-11.0)
[2023-10-27 16:44] LABS: HEMOLYSIS < 15 (0-50)
[2023-10-27 17:03] LABS: Alanine Aminotransferase 16 IU/L (<35); Albumin Globulin Ratio 1.5 (1.0-2.8); Alkaline Phosphatase 51 U/L (38-126); Aspartate Aminotransferase 21 IU/L (14-36); BUN Creatinine Ratio 23.4 (6-22); Bilirubin Total 0.6 mg/dL (0.2-1.3); Blood Urea Nitrogen 18 mg/dL (7-17); Calcium 9.6 mg/dL (8.4-10.2); Carbon Dioxide 28 mmol/L (22-32); Chloride 106 mmol/L (98-107); Estimated Glomerular Filt Rate > 60 mL/min (>60); Globulin 2.6 g/dL (1.7-4.1); Glucose 114 mg/dL (80-110); Potassium 4.6 mmol/L (3.4-5.1); Sodium 139 mmol/L (137-145); Total Protein 6.6 g/dL (6.3-8.2)
[2023-10-28 09:21] LABS: CA 15-3 39.2 U/mL (0.0-25.0); Cancer Antigen 27.29 46.4 U/mL (0.0-38.6)
[2023-10-30 03:02] LABS: Carcinoembryonic Antigen 3.3 ng/mL (0.1-3.0)
== END ==
LOC: LAB 06:53
PROVIDERS: PCP Nurse Practitioner Family; Referring Provider Internal Medicine Medical Oncology; Visit Provider Internal Medicine Medical Oncology
DX: C50.811 Malignant neoplasm of overlapping sites of right female breast (principal); Z17.0 Estrogen receptor positive status [ER+]
CPT/HCPCS: 36415; 80053; 82378; 85025; 86300

== ENCOUNTER → 2023-11-24 06:50 | Outpatient (CLI) | payer MEDICARE, OTHER, SELFPAY ==
[2023-11-24 07:56] LABS: Hematocrit 37.7 % (36-46); Hemoglobin 12.5 g/dL (12.0-16.0); Mean Corpuscular HGB Conc 33.1 % (30-36); Mean Corpuscular Hemoglobin 35.8 PG (26-34); Mean Corpuscular Volume 108.1 fL (80-100); Platelet Count 185 X10^3/uL (150-400); Red Blood Cell Count 3.48 X10^6/uL (4.0-5.2); Red Cell Distribution Width 14.3 % (11.6-14.8); White Blood Cell Count 4.1 X10^3/uL (4.5-11.0)
[2023-11-24 07:57] LABS: Add Manual Diff / Slide Review YES
[2023-11-24 08:09] LABS: Macrocytosis 1+; Neutrophils Absolute Manual 1189 /uL (3000-5900); Total Cells Counted 100
[2023-11-24 08:23] LABS: Alanine Aminotransferase 17 IU/L (<35); Albumin 4.2 g/dL (3.5-5.0); Albumin Globulin Ratio 1.6 (1.0-2.8); Alkaline Phosphatase 50 U/L (38-126); Aspartate Aminotransferase 22 IU/L (14-36); BUN Creatinine Ratio 24.6 (6-22); Bilirubin Total 0.5 mg/dL (0.2-1.3); Blood Urea Nitrogen 16 mg/dL (7-17); Calcium 9.6 mg/dL (8.4-10.2); Carbon Dioxide 27 mmol/L (22-32); Chloride 106 mmol/L (98-107); Estimated Glomerular Filt Rate > 60 mL/min (>60); Globulin 2.6 g/dL (1.7-4.1); Glucose 100 mg/dL (80-110); HEMOLYSIS < 15 (0-50); Potassium 4.4 mmol/L (3.4-5.1); Sodium 138 mmol/L (137-145); Total Protein 6.8 g/dL (6.3-8.2)
[2023-11-24 08:52] LABS: Carcinoembryonic Antigen 3.5 ng/mL (0.1-3.0)
[2023-11-25 08:02] LABS: CA 15-3 42.5 U/mL (0.0-25.0)
[2023-11-25 08:10] LABS: Cancer Antigen 27.29 51.9 U/mL (0.0-38.6)
== END ==
PROVIDERS: PCP Nurse Practitioner Family; Referring Provider Internal Medicine Medical Oncology; Visit Provider Internal Medicine Medical Oncology
DX: C50.412 Malignant neoplasm of upper-outer quadrant of left female breast (principal); M89.9 Disorder of bone, unspecified
CPT/HCPCS: 36415; 80053; 82378; 85007; 85025; 86300

== ENCOUNTER → 2023-12-22 06:49 | Outpatient (CLI) | payer MEDICARE, OTHER, SELFPAY ==
[2023-12-22 08:13] LABS: Add Manual Diff / Slide Review NO; Basophils Absolute Auto 100 /uL (0-100); Basophils Percent Auto 2.8 % (0-2); Eosinophils Absolute Auto 100 /uL (0-450); Eosinophils Percent Auto 1.6 % (2-4); Hematocrit 38.4 % (36-46); Hemoglobin 12.7 g/dL (12.0-16.0); Lymphocytes Absolute Auto 2700 /uL (1100-4500); Lymphocytes Percent Auto 63.5 % (25-40); Mean Corpuscular HGB Conc 33.1 % (30-36); Mean Corpuscular Volume 108.6 fL (80-100); Monocytes Absolute Auto 300 /uL (0-900); Monocytes Percent Auto 7.9 % (3-14); Neutrophils Absolute Auto 1000 /uL (1500-7000); Neutrophils Percent Auto 24.2 % (50-75); Platelet Count 183 X10^3/uL (150-400); Red Blood Cell Count 3.54 X10^6/uL (4.0-5.2); Red Cell Distribution Width 14.4 % (11.6-14.8); White Blood Cell Count 4.2 X10^3/uL (4.5-11.0)
[2023-12-22 08:29] LABS: Alanine Aminotransferase 20 IU/L (<35); Albumin 4.3 g/dL (3.5-5.0); Albumin Globulin Ratio 1.9 (1.0-2.8); Alkaline Phosphatase 51 U/L (38-126); Aspartate Aminotransferase 24 IU/L (14-36); BUN Creatinine Ratio 25.4 (6-22); Bilirubin Total 0.7 mg/dL (0.2-1.3); Blood Urea Nitrogen 17 mg/dL (7-17); Calcium 9.1 mg/dL (8.4-10.2); Carbon Dioxide 28 mmol/L (22-32); Chloride 105 mmol/L (98-107); Estimated Glomerular Filt Rate > 60 mL/min (>60); Globulin 2.3 g/dL (1.7-4.1); Glucose 124 mg/dL (80-110); HEMOLYSIS < 15 (0-50); Potassium 4.7 mmol/L (3.4-5.1); Sodium 139 mmol/L (137-145); Total Protein 6.6 g/dL (6.3-8.2)
[2023-12-22 08:59] LABS: Carcinoembryonic Antigen 3.4 ng/mL (0.1-3.0)
[2023-12-23 07:48] LABS: CA 15-3 40.8 U/mL (0.0-25.0)
[2023-12-23 08:23] LABS: Cancer Antigen 27.29 42.9 U/mL (0.0-38.6)
== END ==
PROVIDERS: PCP Nurse Practitioner Family; Referring Provider Internal Medicine Medical Oncology; Visit Provider Internal Medicine Medical Oncology
DX: C50.412 Malignant neoplasm of upper-outer quadrant of left female breast (principal); M89.9 Disorder of bone, unspecified
CPT/HCPCS: 36415; 80053; 82378; 85025; 86300

== ENCOUNTER → 2024-01-19 06:47 | Outpatient (CLI) | payer MEDICARE, OTHER, SELFPAY ==
[2024-01-19 08:02] LABS: Hematocrit 38.4 % (36-46); Hemoglobin 12.9 g/dL (12.0-16.0); Mean Corpuscular HGB Conc 33.6 % (30-36); Mean Corpuscular Hemoglobin 36.3 PG (26-34); Mean Corpuscular Volume 108.1 fL (80-100); Platelet Count 191 X10^3/uL (150-400); Red Blood Cell Count 3.55 X10^6/uL (4.0-5.2); White Blood Cell Count 4.3 X10^3/uL (4.5-11.0)
[2024-01-19 08:05] LABS: Add Manual Diff / Slide Review YES
[2024-01-19 08:53] LABS: Alanine Aminotransferase 21 IU/L (<35); Albumin 4.2 g/dL (3.5-5.0); Albumin Globulin Ratio 1.5 (1.0-2.8); Alkaline Phosphatase 53 U/L (38-126); Aspartate Aminotransferase 25 IU/L (14-36); BUN Creatinine Ratio 22.4 (6-22); Bilirubin Total 0.6 mg/dL (0.2-1.3); Blood Urea Nitrogen 17 mg/dL (7-17); Calcium 9.2 mg/dL (8.4-10.2); Carbon Dioxide 29 mmol/L (22-32); Chloride 105 mmol/L (98-107); Estimated Glomerular Filt Rate > 60 mL/min (>60); Globulin 2.8 g/dL (1.7-4.1); Glucose 124 mg/dL (80-110); HEMOLYSIS < 15 (0-50); Potassium 4.6 mmol/L (3.4-5.1); Sodium 139 mmol/L (137-145)
[2024-01-19 09:21] LABS: Carcinoembryonic Antigen 3.5 ng/mL (0.1-3.0)
[2024-01-19 11:54] LABS: Neutrophils Absolute Manual 1677 /uL (3000-5900); Total Cells Counted 100
[2024-01-19 11:56] LABS: Macrocytosis 1+
[2024-01-20 05:14] LABS: Cancer Antigen 27.29 58.3 U/mL (0.0-38.6)
[2024-01-20 07:10] LABS: CA 15-3 43.7 U/mL (0.0-25.0)
== END ==
LOC: LAB 06:50
PROVIDERS: PCP Nurse Practitioner Family; Referring Provider Internal Medicine Medical Oncology; Visit Provider Internal Medicine Medical Oncology
DX: C50.811 Malignant neoplasm of overlapping sites of right female breast (principal); Z17.0 Estrogen receptor positive status [ER+]
CPT/HCPCS: 36415; 80053; 82378; 85007; 85025; 86300

== ENCOUNTER → 2024-02-16 06:52 | Outpatient (CLI) | payer MEDICARE, OTHER, SELFPAY ==
[2024-02-16 08:00] LABS: Add Manual Diff / Slide Review NO; Basophils Absolute Auto 100 /uL (0-100); Basophils Percent Auto 2.9 % (0-2); Eosinophils Absolute Auto 100 /uL (0-450); Eosinophils Percent Auto 2.1 % (2-4); Hematocrit 38.1 % (36-46); Hemoglobin 12.9 g/dL (12.0-16.0); Lymphocytes Absolute Auto 2400 /uL (1100-4500); Lymphocytes Percent Auto 60.1 % (25-40); Mean Corpuscular HGB Conc 33.9 % (30-36); Mean Corpuscular Hemoglobin 36.8 PG (26-34); Mean Corpuscular Volume 108.5 fL (80-100); Monocytes Absolute Auto 300 /uL (0-900); Monocytes Percent Auto 7.7 % (3-14); Neutrophils Absolute Auto 1100 /uL (1500-7000); Neutrophils Percent Auto 27.2 % (50-75); Platelet Count 206 X10^3/uL (150-400); Red Blood Cell Count 3.51 X10^6/uL (4.0-5.2); Red Cell Distribution Width 14.3 % (11.6-14.8); White Blood Cell Count 3.9 X10^3/uL (4.5-11.0)
[2024-02-16 08:37] LABS: Alanine Aminotransferase 22 IU/L (<35); Albumin Globulin Ratio 1.5 (1.0-2.8); Alkaline Phosphatase 53 U/L (38-126); Aspartate Aminotransferase 22 IU/L (14-36); Bilirubin Total 0.6 mg/dL (0.2-1.3); Blood Urea Nitrogen 20 mg/dL (7-17); Calcium 9.1 mg/dL (8.4-10.2); Carbon Dioxide 25 mmol/L (22-32); Chloride 106 mmol/L (98-107); Estimated Glomerular Filt Rate > 60 mL/min (>60); Globulin 2.6 g/dL (1.7-4.1); Glucose 126 mg/dL (80-110); HEMOLYSIS < 15 (0-50); Potassium 4.5 mmol/L (3.4-5.1); Sodium 139 mmol/L (137-145); Total Protein 6.6 g/dL (6.3-8.2)
[2024-02-16 09:20] LABS: Carcinoembryonic Antigen 3.4 ng/mL (0.1-3.0)
[2024-02-17 06:36] LABS: Cancer Antigen 27.29 49.8 U/mL (0.0-38.6)
[2024-02-17 07:44] LABS: CA 15-3 43.9 U/mL (0.0-25.0)
== END ==
LOC: LAB 06:54
PROVIDERS: PCP Nurse Practitioner Family; Referring Provider Internal Medicine Medical Oncology; Visit Provider Internal Medicine Medical Oncology
DX: C50.919 Malignant neoplasm of unspecified site of unspecified female breast (principal)
CPT/HCPCS: 36415; 80053; 82378; 85025; 86300

== ENCOUNTER → 2024-03-15 06:52 | Outpatient (CLI) | payer MEDICARE, OTHER, SELFPAY ==
[2024-03-15 08:39] LABS: Add Manual Diff / Slide Review NO; Alanine Aminotransferase 20 IU/L (<35); Albumin 4.2 g/dL (3.5-5.0); Albumin Globulin Ratio 1.7 (1.0-2.8); Alkaline Phosphatase 46 U/L (38-126); Aspartate Aminotransferase 23 IU/L (14-36); BUN Creatinine Ratio 25.3 (6-22); Basophils Absolute Auto 100 /uL (0-100); Basophils Percent Auto 2.8 % (0-2); Bilirubin Total 0.5 mg/dL (0.2-1.3); Blood Urea Nitrogen 19 mg/dL (7-17); Calcium 9.5 mg/dL (8.4-10.2); Carbon Dioxide 26 mmol/L (22-32); Chloride 103 mmol/L (98-107); Eosinophils Absolute Auto 100 /uL (0-450); Estimated Glomerular Filt Rate > 60 mL/min (>60); Globulin 2.5 g/dL (1.7-4.1); Glucose 124 mg/dL (80-110); HEMOLYSIS < 15 (0-50); Hematocrit 37.3 % (36-46); Hemoglobin 12.7 g/dL (12.0-16.0); Lymphocytes Absolute Auto 2500 /uL (1100-4500); Lymphocytes Percent Auto 64.3 % (25-40); Mean Corpuscular Hemoglobin 36.8 PG (26-34); Mean Corpuscular Volume 108.3 fL (80-100); Monocytes Absolute Auto 300 /uL (0-900); Monocytes Percent Auto 7.6 % (3-14); Neutrophils Absolute Auto 900 /uL (1500-7000); Neutrophils Percent Auto 23.3 % (50-75); Platelet Count 184 X10^3/uL (150-400); Potassium 4.5 mmol/L (3.4-5.1); Red Blood Cell Count 3.44 X10^6/uL (4.0-5.2); Red Cell Distribution Width 13.6 % (11.6-14.8); Sodium 138 mmol/L (137-145); Total Protein 6.7 g/dL (6.3-8.2); White Blood Cell Count 3.9 X10^3/uL (4.5-11.0)
[2024-03-15 09:01] LABS: Carcinoembryonic Antigen 3.2 ng/mL (0.1-3.0)
[2024-03-16 06:15] LABS: Cancer Antigen 27.29 51.2 U/mL (0.0-38.6)
[2024-03-16 07:10] LABS: CA 15-3 45.7 U/mL (0.0-25.0)
== END ==
PROVIDERS: PCP Nurse Practitioner Family; Referring Provider Internal Medicine Medical Oncology; Visit Provider Internal Medicine Medical Oncology
DX: C50.919 Malignant neoplasm of unspecified site of unspecified female breast (principal)
CPT/HCPCS: 36415; 80053; 82378; 85025; 86300

== ENCOUNTER → 2024-04-12 11:40 | Outpatient (CLI) | payer MEDICARE, OTHER, SELFPAY ==
[2024-04-12 12:24] LABS: Add Manual Diff / Slide Review NO; Basophils Absolute Auto 100 /uL (0-100); Basophils Percent Auto 2.8 % (0-2); Eosinophils Absolute Auto 100 /uL (0-450); Eosinophils Percent Auto 1.4 % (2-4); Hematocrit 38.3 % (36-46); Hemoglobin 12.8 g/dL (12.0-16.0); Lymphocytes Absolute Auto 2500 /uL (1100-4500); Lymphocytes Percent Auto 57.9 % (25-40); Mean Corpuscular HGB Conc 33.5 % (30-36); Mean Corpuscular Hemoglobin 36.2 PG (26-34); Mean Corpuscular Volume 107.8 fL (80-100); Monocytes Absolute Auto 400 /uL (0-900); Monocytes Percent Auto 9.2 % (3-14); Neutrophils Absolute Auto 1200 /uL (1500-7000); Neutrophils Percent Auto 28.7 % (50-75); Platelet Count 190 X10^3/uL (150-400); Red Blood Cell Count 3.55 X10^6/uL (4.0-5.2); Red Cell Distribution Width 13.6 % (11.6-14.8); White Blood Cell Count 4.3 X10^3/uL (4.5-11.0)
[2024-04-12 15:24] LABS: Alanine Aminotransferase 25 IU/L (<35); Albumin 4.1 g/dL (3.5-5.0); Albumin Globulin Ratio 1.5 (1.0-2.8); Alkaline Phosphatase 59 U/L (38-126); Aspartate Aminotransferase 27 IU/L (14-36); BUN Creatinine Ratio 20.9 (6-22); Bilirubin Total 0.4 mg/dL (0.2-1.3); Blood Urea Nitrogen 14 mg/dL (7-17); Calcium 9.2 mg/dL (8.4-10.2); Carbon Dioxide 27 mmol/L (22-32); Chloride 104 mmol/L (98-107); Estimated Glomerular Filt Rate > 60 mL/min (>60); Globulin 2.8 g/dL (1.7-4.1); Glucose 111 mg/dL (80-110); HEMOLYSIS < 15 (0-50); Potassium 4.2 mmol/L (3.4-5.1); Sodium 136 mmol/L (137-145); Total Protein 6.9 g/dL (6.3-8.2)
== END ==
LOC: LAB 11:45
PROVIDERS: PCP Nurse Practitioner Family; Referring Provider Internal Medicine Medical Oncology; Visit Provider Internal Medicine Medical Oncology
DX: C50.919 Malignant neoplasm of unspecified site of unspecified female breast (principal)
CPT/HCPCS: 36415; 80053; 85025; 86300

== ENCOUNTER → 2024-05-13 07:01 | Outpatient (CLI) | payer MEDICARE, OTHER, SELFPAY ==
[2024-05-13 08:20] LABS: Add Manual Diff / Slide Review NO; Basophils Absolute Auto 200 /uL (0-100); Eosinophils Absolute Auto 100 /uL (0-450); Eosinophils Percent Auto 2.1 % (2-4); Hematocrit 38.2 % (36-46); Hemoglobin 12.7 g/dL (12.0-16.0); Lymphocytes Absolute Auto 3000 /uL (1100-4500); Lymphocytes Percent Auto 57.1 % (25-40); Mean Corpuscular HGB Conc 33.3 % (30-36); Mean Corpuscular Hemoglobin 36.2 PG (26-34); Mean Corpuscular Volume 108.6 fL (80-100); Monocytes Absolute Auto 700 /uL (0-900); Neutrophils Absolute Auto 1300 /uL (1500-7000); Neutrophils Percent Auto 24.8 % (50-75); Platelet Count 183 X10^3/uL (150-400); Red Blood Cell Count 3.51 X10^6/uL (4.0-5.2); White Blood Cell Count 5.2 X10^3/uL (4.5-11.0)
[2024-05-13 08:49] LABS: Alanine Aminotransferase 19 IU/L (<35); Albumin 3.9 g/dL (3.5-5.0); Albumin Globulin Ratio 1.6 (1.0-2.8); Alkaline Phosphatase 55 U/L (38-126); Aspartate Aminotransferase 24 IU/L (14-36); BUN Creatinine Ratio 28.8 (6-22); Bilirubin Total 0.4 mg/dL (0.2-1.3); Blood Urea Nitrogen 21 mg/dL (7-17); Calcium 9.4 mg/dL (8.4-10.2); Carbon Dioxide 25 mmol/L (22-32); Chloride 106 mmol/L (98-107); Estimated Glomerular Filt Rate > 60 mL/min (>60); Globulin 2.5 g/dL (1.7-4.1); Glucose 115 mg/dL (80-110); HEMOLYSIS < 15 (0-50); Potassium 4.2 mmol/L (3.4-5.1); Sodium 139 mmol/L (137-145); Total Protein 6.4 g/dL (6.3-8.2)
[2024-05-13 09:16] LABS: Carcinoembryonic Antigen 3.5 ng/mL (0.1-3.0)
[2024-05-14 07:40] LABS: CA 15-3 42.8 U/mL (0.0-25.0); Cancer Antigen 27.29 53.2 U/mL (0.0-38.6)
== END ==
PROVIDERS: PCP Nurse Practitioner Family; Referring Provider Internal Medicine Medical Oncology; Visit Provider Internal Medicine Medical Oncology
DX: C50.919 Malignant neoplasm of unspecified site of unspecified female breast (principal)
CPT/HCPCS: 36415; 80053; 82378; 85025; 86300

== ENCOUNTER → 2024-06-07 06:53 | Outpatient (CLI) | payer MEDICARE, OTHER, SELFPAY ==
[2024-06-07 08:26] LABS: Add Manual Diff / Slide Review NO; Basophils Absolute Auto 100 /uL (0-100); Basophils Percent Auto 2.9 % (0-2); Eosinophils Absolute Auto 100 /uL (0-450); Eosinophils Percent Auto 1.6 % (2-4); Hematocrit 38.3 % (36-46); Hemoglobin 12.8 g/dL (12.0-16.0); Lymphocytes Absolute Auto 2100 /uL (1100-4500); Lymphocytes Percent Auto 55.8 % (25-40); Mean Corpuscular HGB Conc 33.4 % (30-36); Mean Corpuscular Hemoglobin 36.2 PG (26-34); Mean Corpuscular Volume 108.4 fL (80-100); Monocytes Absolute Auto 400 /uL (0-900); Monocytes Percent Auto 10.2 % (3-14); Neutrophils Absolute Auto 1100 /uL (1500-7000); Neutrophils Percent Auto 29.5 % (50-75); Platelet Count 168 X10^3/uL (150-400); Red Blood Cell Count 3.54 X10^6/uL (4.0-5.2); Red Cell Distribution Width 14.1 % (11.6-14.8); White Blood Cell Count 3.7 X10^3/uL (4.5-11.0)
[2024-06-07 08:56] LABS: Alanine Aminotransferase 25 IU/L (<35); Albumin 4.2 g/dL (3.5-5.0); Albumin Globulin Ratio 1.7 (1.0-2.8); Alkaline Phosphatase 48 U/L (38-126); Aspartate Aminotransferase 26 IU/L (14-36); BUN Creatinine Ratio 17.4 (6-22); Bilirubin Total 0.5 mg/dL (0.2-1.3); Blood Urea Nitrogen 15 mg/dL (7-17); Calcium 9.5 mg/dL (8.4-10.2); Carbon Dioxide 26 mmol/L (22-32); Chloride 105 mmol/L (98-107); Estimated Glomerular Filt Rate > 60 mL/min (>60); Globulin 2.5 g/dL (1.7-4.1); Glucose 128 mg/dL (80-110); HEMOLYSIS < 15 (0-50); Potassium 4.5 mmol/L (3.4-5.1); Sodium 138 mmol/L (137-145); Total Protein 6.7 g/dL (6.3-8.2)
[2024-06-07 09:26] LABS: Carcinoembryonic Antigen 3.3 ng/mL (0.1-3.0)
[2024-06-08 07:11] LABS: CA 15-3 41.1 U/mL (0.0-25.0)
[2024-06-08 10:10] LABS: Cancer Antigen 27.29 45.1 U/mL (0.0-38.6)
== END ==
PROVIDERS: PCP Nurse Practitioner Family; Referring Provider Internal Medicine Medical Oncology; Visit Provider Internal Medicine Medical Oncology
DX: C50.919 Malignant neoplasm of unspecified site of unspecified female breast (principal)
CPT/HCPCS: 36415; 80053; 82378; 85025; 86300

== ENCOUNTER → 2024-07-05 06:47 | Outpatient (CLI) | payer MEDICARE, OTHER, SELFPAY ==
[2024-07-05 07:47] LABS: Add Manual Diff / Slide Review NO; Basophils Absolute Auto 100 /uL (0-100); Eosinophils Absolute Auto 100 /uL (0-450); Eosinophils Percent Auto 2.4 % (2-4); Hematocrit 38.2 % (36-46); Hemoglobin 12.7 g/dL (12.0-16.0); Lymphocytes Absolute Auto 2200 /uL (1100-4500); Mean Corpuscular HGB Conc 33.4 % (30-36); Mean Corpuscular Volume 107.9 fL (80-100); Monocytes Absolute Auto 400 /uL (0-900); Neutrophils Absolute Auto 1100 /uL (1500-7000); Neutrophils Percent Auto 27.6 % (50-75); Platelet Count 184 X10^3/uL (150-400); Red Blood Cell Count 3.54 X10^6/uL (4.0-5.2); Red Cell Distribution Width 14.2 % (11.6-14.8); White Blood Cell Count 3.9 X10^3/uL (4.5-11.0)
[2024-07-05 08:23] LABS: Alanine Aminotransferase 23 IU/L (<35); Albumin 4.1 g/dL (3.5-5.0); Albumin Globulin Ratio 1.6 (1.0-2.8); Alkaline Phosphatase 62 U/L (38-126); Aspartate Aminotransferase 25 IU/L (14-36); BUN Creatinine Ratio 22.2 (6-22); Bilirubin Total 0.6 mg/dL (0.2-1.3); Blood Urea Nitrogen 16 mg/dL (7-17); Calcium 9.4 mg/dL (8.4-10.2); Carbon Dioxide 25 mmol/L (22-32); Chloride 106 mmol/L (98-107); Estimated Glomerular Filt Rate > 60 mL/min (>60); Globulin 2.5 g/dL (1.7-4.1); Glucose 117 mg/dL (80-110); HEMOLYSIS < 15 (0-50); Potassium 4.4 mmol/L (3.4-5.1); Sodium 137 mmol/L (137-145); Total Protein 6.6 g/dL (6.3-8.2)
[2024-07-05 08:51] LABS: Carcinoembryonic Antigen 3.3 ng/mL (0.1-3.0)
[2024-07-06 06:36] LABS: Cancer Antigen 27.29 49.7 U/mL (0.0-38.6)
[2024-07-06 07:38] LABS: CA 15-3 42.3 U/mL (0.0-25.0)
== END ==
PROVIDERS: PCP Nurse Practitioner Family; Referring Provider Internal Medicine Medical Oncology; Visit Provider Internal Medicine Medical Oncology
DX: C50.919 Malignant neoplasm of unspecified site of unspecified female breast (principal)
CPT/HCPCS: 36415; 80053; 82378; 85025; 86300

== ENCOUNTER → 2024-08-02 06:53 | Outpatient (CLI) | payer MEDICARE, OTHER, SELFPAY ==
[2024-08-02 08:16] LABS: Add Manual Diff / Slide Review NO; Basophils Absolute Auto 100 /uL (0-100); Eosinophils Absolute Auto 100 /uL (0-450); Hematocrit 39.5 % (36-46); Hemoglobin 13.3 g/dL (12.0-16.0); Lymphocytes Absolute Auto 2000 /uL (1100-4500); Lymphocytes Percent Auto 49.5 % (25-40); Mean Corpuscular HGB Conc 33.6 % (30-36); Mean Corpuscular Hemoglobin 36.3 PG (26-34); Monocytes Absolute Auto 400 /uL (0-900); Monocytes Percent Auto 9.5 % (3-14); Neutrophils Absolute Auto 1500 /uL (1500-7000); Platelet Count 184 X10^3/uL (150-400); Red Blood Cell Count 3.66 X10^6/uL (4.0-5.2); Red Cell Distribution Width 13.9 % (11.6-14.8); White Blood Cell Count 4.1 X10^3/uL (4.5-11.0)
[2024-08-02 09:28] LABS: Alanine Aminotransferase 24 IU/L (<35); Albumin 4.3 g/dL (3.5-5.0); Albumin Globulin Ratio 1.6 (1.0-2.8); Alkaline Phosphatase 56 U/L (38-126); Aspartate Aminotransferase 26 IU/L (14-36); BUN Creatinine Ratio 27.3 (6-22); Bilirubin Total 0.5 mg/dL (0.2-1.3); Blood Urea Nitrogen 18 mg/dL (7-17); Calcium 9.5 mg/dL (8.4-10.2); Carbon Dioxide 26 mmol/L (22-32); Chloride 103 mmol/L (98-107); Estimated Glomerular Filt Rate > 60 mL/min (>60); Globulin 2.7 g/dL (1.7-4.1); Glucose 115 mg/dL (80-110); HEMOLYSIS 18 (0-50); Potassium 4.5 mmol/L (3.4-5.1); Sodium 137 mmol/L (137-145)
[2024-08-02 09:58] LABS: Carcinoembryonic Antigen 3.5 ng/mL (0.1-3.0)
[2024-08-03 06:37] LABS: Cancer Antigen 27.29 57.6 U/mL (0.0-38.6)
[2024-08-04 07:08] LABS: CA 15-3 43.2 U/mL (0.0-25.0)
== END ==
PROVIDERS: PCP Nurse Practitioner Family; Referring Provider Internal Medicine Medical Oncology; Visit Provider Internal Medicine Medical Oncology
DX: C50.919 Malignant neoplasm of unspecified site of unspecified female breast (principal)
CPT/HCPCS: 36415; 80053; 82378; 85025; 86300

== ENCOUNTER → 2024-08-30 06:46 | Outpatient (CLI) | payer MEDICARE, OTHER, SELFPAY ==
[2024-08-30 07:45] LABS: Add Manual Diff / Slide Review NO; Basophils Absolute Auto 100 /uL (0-100); Basophils Percent Auto 2.4 % (0-2); Eosinophils Absolute Auto 100 /uL (0-450); Eosinophils Percent Auto 1.7 % (2-4); Hematocrit 38.8 % (36-46); Lymphocytes Absolute Auto 2200 /uL (1100-4500); Lymphocytes Percent Auto 55.2 % (25-40); Mean Corpuscular HGB Conc 33.5 % (30-36); Mean Corpuscular Hemoglobin 36.5 PG (26-34); Mean Corpuscular Volume 109.1 fL (80-100); Monocytes Absolute Auto 400 /uL (0-900); Monocytes Percent Auto 9.5 % (3-14); Neutrophils Absolute Auto 1200 /uL (1500-7000); Neutrophils Percent Auto 31.2 % (50-75); Platelet Count 190 X10^3/uL (150-400); Red Blood Cell Count 3.56 X10^6/uL (4.0-5.2); Red Cell Distribution Width 14.2 % (11.6-14.8); White Blood Cell Count 3.9 X10^3/uL (4.5-11.0)
[2024-08-30 08:23] LABS: Alanine Aminotransferase 24 IU/L (<35); Albumin 4.4 g/dL (3.5-5.0); Albumin Globulin Ratio 1.6 (1.0-2.8); Alkaline Phosphatase 54 U/L (38-126); Aspartate Aminotransferase 27 IU/L (14-36); Bilirubin Total 0.5 mg/dL (0.2-1.3); Blood Urea Nitrogen 19 mg/dL (7-17); Calcium 9.5 mg/dL (8.4-10.2); Carbon Dioxide 28 mmol/L (22-32); Chloride 103 mmol/L (98-107); Estimated Glomerular Filt Rate > 60 mL/min (>60); Globulin 2.7 g/dL (1.7-4.1); Glucose 114 mg/dL (80-110); HEMOLYSIS < 15 (0-50); Potassium 4.4 mmol/L (3.4-5.1); Sodium 138 mmol/L (137-145); Total Protein 7.1 g/dL (6.3-8.2)
[2024-08-30 08:52] LABS: Carcinoembryonic Antigen 3.5 ng/mL (0.1-3.0)
[2024-08-31 04:40] LABS: Cancer Antigen 27.29 46.5 U/mL (0.0-38.6)
[2024-08-31 07:08] LABS: CA 15-3 39.9 U/mL (0.0-25.0)
== END ==
PROVIDERS: PCP Nurse Practitioner Family; Referring Provider Internal Medicine Medical Oncology; Visit Provider Internal Medicine Medical Oncology
DX: C50.919 Malignant neoplasm of unspecified site of unspecified female breast (principal)
CPT/HCPCS: 36415; 80053; 82378; 85025; 86300

== ENCOUNTER → 2024-09-27 06:54 | Outpatient (CLI) | payer MEDICARE, OTHER, SELFPAY ==
[2024-09-27 07:46] LABS: Add Manual Diff / Slide Review NO; Basophils Absolute Auto 100 /uL (0-100); Eosinophils Absolute Auto 100 /uL (0-450); Eosinophils Percent Auto 2.1 % (2-4); Hemoglobin 12.9 g/dL (12.0-16.0); Lymphocytes Absolute Auto 2100 /uL (1100-4500); Lymphocytes Percent Auto 55.2 % (25-40); Mean Corpuscular HGB Conc 33.9 % (30-36); Mean Corpuscular Hemoglobin 36.6 PG (26-34); Mean Corpuscular Volume 108.1 fL (80-100); Monocytes Absolute Auto 400 /uL (0-900); Monocytes Percent Auto 9.7 % (3-14); Neutrophils Absolute Auto 1200 /uL (1500-7000); Platelet Count 203 X10^3/uL (150-400); Red Blood Cell Count 3.52 X10^6/uL (4.0-5.2); Red Cell Distribution Width 13.7 % (11.6-14.8); White Blood Cell Count 3.8 X10^3/uL (4.5-11.0)
[2024-09-27 08:27] LABS: Alanine Aminotransferase 25 IU/L (<35); Albumin 4.3 g/dL (3.5-5.0); Albumin Globulin Ratio 1.6 (1.0-2.8); Alkaline Phosphatase 54 U/L (38-126); Aspartate Aminotransferase 26 IU/L (14-36); BUN Creatinine Ratio 22.1 (6-22); Bilirubin Total 0.5 mg/dL (0.2-1.3); Blood Urea Nitrogen 17 mg/dL (7-17); Calcium 9.5 mg/dL (8.4-10.2); Carbon Dioxide 27 mmol/L (22-32); Chloride 103 mmol/L (98-107); Estimated Glomerular Filt Rate > 60 mL/min (>60); Globulin 2.7 g/dL (1.7-4.1); Glucose 121 mg/dL (80-110); HEMOLYSIS < 15 (0-50); Sodium 139 mmol/L (137-145)
[2024-09-27 08:56] LABS: Carcinoembryonic Antigen 3.3 ng/mL (0.1-3.0)
[2024-09-28 06:36] LABS: CA 15-3 42.5 U/mL (0.0-25.0); Cancer Antigen 27.29 57.3 U/mL (0.0-38.6)
== END ==
PROVIDERS: PCP Nurse Practitioner Family; Referring Provider Internal Medicine Medical Oncology; Visit Provider Internal Medicine Medical Oncology
DX: C50.919 Malignant neoplasm of unspecified site of unspecified female breast (principal)
CPT/HCPCS: 36415; 80053; 82378; 85025; 86300

== ENCOUNTER → 2024-10-25 06:45 | Outpatient (CLI) | payer MEDICARE, OTHER, SELFPAY ==
[2024-10-25 07:42] LABS: Add Manual Diff / Slide Review NO; Basophils Absolute Auto 100 /uL (0-100); Basophils Percent Auto 2.9 % (0-2); Eosinophils Absolute Auto 100 /uL (0-450); Eosinophils Percent Auto 2.5 % (2-4); Hematocrit 37.9 % (36-46); Hemoglobin 12.8 g/dL (12.0-16.0); Lymphocytes Absolute Auto 1800 /uL (1100-4500); Lymphocytes Percent Auto 47.5 % (25-40); Mean Corpuscular HGB Conc 33.7 % (30-36); Mean Corpuscular Hemoglobin 36.4 PG (26-34); Monocytes Absolute Auto 300 /uL (0-900); Neutrophils Absolute Auto 1500 /uL (1500-7000); Neutrophils Percent Auto 38.1 % (50-75); Platelet Count 217 X10^3/uL (150-400); Red Blood Cell Count 3.51 X10^6/uL (4.0-5.2); Red Cell Distribution Width 13.8 % (11.6-14.8); White Blood Cell Count 3.9 X10^3/uL (4.5-11.0)
[2024-10-25 07:59] LABS: Alanine Aminotransferase 22 IU/L (<35); Albumin 4.3 g/dL (3.5-5.0); Albumin Globulin Ratio 1.6 (1.0-2.8); Alkaline Phosphatase 60 U/L (38-126); Aspartate Aminotransferase 25 IU/L (14-36); BUN Creatinine Ratio 24.1 (6-22); Bilirubin Total 0.5 mg/dL (0.2-1.3); Blood Urea Nitrogen 19 mg/dL (7-17); Calcium 9.8 mg/dL (8.4-10.2); Carbon Dioxide 27 mmol/L (22-32); Chloride 102 mmol/L (98-107); Estimated Glomerular Filt Rate > 60 mL/min (>60); Globulin 2.7 g/dL (1.7-4.1); Glucose 133 mg/dL (80-110); HEMOLYSIS < 15 (0-50); Potassium 4.8 mmol/L (3.4-5.1); Sodium 138 mmol/L (137-145)
[2024-10-26 09:39] LABS: Cancer Antigen 27.29 54.7 U/mL (0.0-38.6)
== END ==
PROVIDERS: PCP Nurse Practitioner Family; Referring Provider Internal Medicine Medical Oncology; Visit Provider Internal Medicine Medical Oncology
DX: C50.919 Malignant neoplasm of unspecified site of unspecified female breast (principal)
CPT/HCPCS: 36415; 80053; 82378; 85025; 86300

== ENCOUNTER → 2024-11-22 06:40 | Outpatient (CLI) | payer MEDICARE, OTHER, SELFPAY ==
[2024-11-22 07:35] LABS: Add Manual Diff / Slide Review NO; Basophils Absolute Auto 100 /uL (0-100); Basophils Percent Auto 2.4 % (0-2); Eosinophils Absolute Auto 100 /uL (0-450); Eosinophils Percent Auto 2.8 % (2-4); Hematocrit 39.5 % (36-46); Lymphocytes Absolute Auto 1800 /uL (1100-4500); Lymphocytes Percent Auto 52.7 % (25-40); Mean Corpuscular Hemoglobin 35.7 PG (26-34); Mean Corpuscular Volume 108.3 fL (80-100); Monocytes Absolute Auto 300 /uL (0-900); Monocytes Percent Auto 8.2 % (3-14); Neutrophils Absolute Auto 1100 /uL (1500-7000); Neutrophils Percent Auto 33.9 % (50-75); Platelet Count 202 X10^3/uL (150-400); Red Blood Cell Count 3.65 X10^6/uL (4.0-5.2); Red Cell Distribution Width 14.4 % (11.6-14.8); White Blood Cell Count 3.3 X10^3/uL (4.5-11.0)
[2024-11-22 07:54] LABS: Alanine Aminotransferase 22 IU/L (<35); Albumin 4.4 g/dL (3.5-5.0); Albumin Globulin Ratio 1.8 (1.0-2.8); Alkaline Phosphatase 58 U/L (38-126); Aspartate Aminotransferase 28 IU/L (14-36); Bilirubin Total 0.5 mg/dL (0.2-1.3); Blood Urea Nitrogen 21 mg/dL (7-17); Calcium 9.3 mg/dL (8.4-10.2); Carbon Dioxide 26 mmol/L (22-32); Chloride 104 mmol/L (98-107); Estimated Glomerular Filt Rate > 60 mL/min (>60); Globulin 2.5 g/dL (1.7-4.1); Glucose 126 mg/dL (70-99); HEMOLYSIS < 15 (0-50); Potassium 4.5 mmol/L (3.4-5.1); Sodium 139 mmol/L (137-145); Total Protein 6.9 g/dL (6.3-8.2)
[2024-11-22 08:25] LABS: Carcinoembryonic Antigen 3.4 ng/mL (0.1-3.0)
== END ==
LOC: LAB 06:44
PROVIDERS: PCP Nurse Practitioner Family; Referring Provider Internal Medicine Medical Oncology; Visit Provider Internal Medicine Medical Oncology
DX: C50.919 Malignant neoplasm of unspecified site of unspecified female breast (principal)
CPT/HCPCS: 36415; 80053; 82378; 85025; 86300

== ENCOUNTER → 2024-12-20 07:52 | Outpatient (CLI) | payer MEDICARE, OTHER, SELFPAY ==
[2024-12-20 09:01] LABS: Add Manual Diff / Slide Review NO; Basophils Absolute Auto 100 /uL (0-100); Basophils Percent Auto 2.4 % (0-2); Eosinophils Absolute Auto 100 /uL (0-450); Eosinophils Percent Auto 1.8 % (2-4); Hematocrit 38.8 % (36-46); Lymphocytes Absolute Auto 1800 /uL (1100-4500); Lymphocytes Percent Auto 44.3 % (25-40); Mean Corpuscular HGB Conc 33.5 % (30-36); Mean Corpuscular Volume 107.5 fL (80-100); Monocytes Absolute Auto 400 /uL (0-900); Monocytes Percent Auto 8.9 % (3-14); Neutrophils Absolute Auto 1700 /uL (1500-7000); Neutrophils Percent Auto 42.6 % (50-75); Platelet Count 187 X10^3/uL (150-400); Red Blood Cell Count 3.61 X10^6/uL (4.0-5.2); Red Cell Distribution Width 14.7 % (11.6-14.8); White Blood Cell Count 4.1 X10^3/uL (4.5-11.0)
[2024-12-20 09:39] LABS: Alanine Aminotransferase 18 IU/L (<35); Albumin 4.4 g/dL (3.5-5.0); Albumin Globulin Ratio 1.8 (1.0-2.8); Alkaline Phosphatase 57 U/L (38-126); Aspartate Aminotransferase 24 IU/L (14-36); BUN Creatinine Ratio 23.2 (6-22); Bilirubin Total 0.6 mg/dL (0.2-1.3); Blood Urea Nitrogen 16 mg/dL (7-17); Calcium 9.4 mg/dL (8.4-10.2); Carbon Dioxide 28 mmol/L (22-32); Chloride 102 mmol/L (98-107); Estimated Glomerular Filt Rate > 60 mL/min (>60); Globulin 2.4 g/dL (1.7-4.1); Glucose 108 mg/dL (70-99); HEMOLYSIS < 15 (0-50); Potassium 4.5 mmol/L (3.4-5.1); Sodium 138 mmol/L (137-145); Total Protein 6.8 g/dL (6.3-8.2)
[2024-12-20 10:07] LABS: Carcinoembryonic Antigen 3.3 ng/mL (0.1-3.0)
[2024-12-21 06:36] LABS: Cancer Antigen 27.29 47.4 U/mL (0.0-38.6)
[2024-12-21 07:09] LABS: CA 15-3 38.4 U/mL (0.0-25.0)
== END ==
LOC: LAB 07:54
PROVIDERS: PCP Nurse Practitioner Family; Referring Provider Internal Medicine Medical Oncology; Visit Provider Internal Medicine Medical Oncology
DX: C50.919 Malignant neoplasm of unspecified site of unspecified female breast (principal)
CPT/HCPCS: 36415; 80053; 82378; 85025; 86300

== ENCOUNTER → 2025-01-17 06:46 | Outpatient (CLI) | payer MEDICARE, OTHER, SELFPAY ==
[2025-01-17 07:36] LABS: Add Manual Diff / Slide Review NO; Hematocrit 38.6 % (36-46); Hemoglobin 12.9 g/dL (12.0-16.0); Lymphocytes Absolute Auto 2000 /uL (1100-4500); Mean Corpuscular HGB Conc 33.5 % (30-36); Mean Corpuscular Hemoglobin 36.0 PG (26-34); Mean Corpuscular Volume 107.3 fL (80-100); Platelet Count 175 X10^3/uL (150-400)
[2025-01-17 07:55] LABS: Alanine Aminotransferase 20 IU/L (<35); Albumin 4.4 g/dL (3.5-5.0); Albumin Globulin Ratio 1.6 (1.0-2.8); Alkaline Phosphatase 56 U/L (38-126); Blood Urea Nitrogen 20 mg/dL (7-17); Calcium 9.5 mg/dL (8.4-10.2); Carbon Dioxide 28 mmol/L (22-32); Chloride 102 mmol/L (98-107); Estimated Glomerular Filt Rate > 60 mL/min (>60); Globulin 2.7 g/dL (1.7-4.1); Glucose 124 mg/dL (70-99); HEMOLYSIS < 15 (0-50); Potassium 4.6 mmol/L (3.4-5.1); Sodium 138 mmol/L (137-145); Total Protein 7.1 g/dL (6.3-8.2)
[2025-01-17 08:25] LABS: Carcinoembryonic Antigen 3.7 ng/mL (0.1-3.0)
[2025-01-18 06:36] LABS: CA 15-3 39.2 U/mL (0.0-25.0)
== END ==
PROVIDERS: PCP Nurse Practitioner Family; Referring Provider Internal Medicine Medical Oncology; Visit Provider Internal Medicine Medical Oncology
DX: C50.919 Malignant neoplasm of unspecified site of unspecified female breast (principal)
CPT/HCPCS: 36415; 80053; 82378; 85025; 86300

== ENCOUNTER → 2025-02-14 06:47 | Outpatient (CLI) | payer MEDICARE, OTHER, SELFPAY ==
[2025-02-14 07:46] LABS: Add Manual Diff / Slide Review NO; Hematocrit 36.6 % (36-46); Hemoglobin 12.6 g/dL (12.0-16.0); Lymphocytes Absolute Auto 2100 /uL (1100-4500); Mean Corpuscular HGB Conc 34.5 % (30-36); Mean Corpuscular Hemoglobin 37.0 PG (26-34); Mean Corpuscular Volume 107.3 fL (80-100); Platelet Count 177 X10^3/uL (150-400)
[2025-02-14 09:08] LABS: Alanine Aminotransferase 20 IU/L (<35); Albumin 4.2 g/dL (3.5-5.0); Albumin Globulin Ratio 1.6 (1.0-2.8); Alkaline Phosphatase 54 U/L (38-126); Blood Urea Nitrogen 20 mg/dL (7-17); Calcium 9.3 mg/dL (8.4-10.2); Carbon Dioxide 27 mmol/L (22-32); Chloride 104 mmol/L (98-107); Estimated Glomerular Filt Rate > 60 mL/min (>60); Globulin 2.6 g/dL (1.7-4.1); Glucose 108 mg/dL (70-99); HEMOLYSIS < 15 (0-50); Potassium 4.7 mmol/L (3.4-5.1); Sodium 138 mmol/L (137-145); Total Protein 6.8 g/dL (6.3-8.2)
[2025-02-14 09:33] LABS: Carcinoembryonic Antigen 3.4 ng/mL (0.1-3.0)
[2025-02-15 06:36] LABS: CA 15-3 39.6 U/mL (0.0-25.0)
== END ==
PROVIDERS: PCP Nurse Practitioner Family; Referring Provider Internal Medicine Medical Oncology; Visit Provider Internal Medicine Medical Oncology
DX: C50.919 Malignant neoplasm of unspecified site of unspecified female breast (principal)
CPT/HCPCS: 36415; 80053; 82378; 85025; 86300

== ENCOUNTER → 2025-04-11 06:44 | Outpatient (CLI) | payer MEDICARE, OTHER, SELFPAY ==
[2025-04-11 07:42] LABS: Add Manual Diff / Slide Review NO; Hematocrit 37.9 % (36-46); Hemoglobin 12.9 g/dL (12.0-16.0); Lymphocytes Absolute Auto 2100 /uL (1100-4500); Mean Corpuscular HGB Conc 34.0 % (30-36); Mean Corpuscular Hemoglobin 36.4 PG (26-34); Mean Corpuscular Volume 107.0 fL (80-100); Platelet Count 181 X10^3/uL (150-400)
[2025-04-11 08:06] LABS: Alanine Aminotransferase 22 IU/L (<35); Albumin 4.2 g/dL (3.5-5.0); Albumin Globulin Ratio 1.6 (1.0-2.8); Alkaline Phosphatase 57 U/L (38-126); Blood Urea Nitrogen 15 mg/dL (7-17); Calcium 9.1 mg/dL (8.4-10.2); Carbon Dioxide 26 mmol/L (22-32); Chloride 104 mmol/L (98-107); Estimated Glomerular Filt Rate > 60 mL/min (>60); Globulin 2.7 g/dL (1.7-4.1); Glucose 152 mg/dL (70-99); HEMOLYSIS < 15 (0-50); Potassium 4.5 mmol/L (3.4-5.1); Sodium 138 mmol/L (137-145); Total Protein 6.9 g/dL (6.3-8.2)
[2025-04-11 08:34] LABS: Carcinoembryonic Antigen 3.4 ng/mL (0.1-3.0)
[2025-04-12 06:36] LABS: CA 15-3 37.8 U/mL (0.0-25.0)
== END ==
PROVIDERS: PCP Nurse Practitioner Family; Referring Provider Internal Medicine Medical Oncology; Visit Provider Internal Medicine Medical Oncology
DX: C50.919 Malignant neoplasm of unspecified site of unspecified female breast (principal)
CPT/HCPCS: 36415; 80053; 82378; 85025; 86300

== ENCOUNTER → 2025-05-15 06:51 | Outpatient (CLI) | payer MEDICARE, OTHER, SELFPAY ==
[2025-05-15 07:47] LABS: Add Manual Diff / Slide Review NO; Hematocrit 38.1 % (36-46); Hemoglobin 12.9 g/dL (12.0-16.0); Lymphocytes Absolute Auto 2500 /uL (1100-4500); Mean Corpuscular HGB Conc 33.9 % (30-36); Mean Corpuscular Hemoglobin 36.1 PG (26-34); Mean Corpuscular Volume 106.4 fL (80-100); Platelet Count 167 X10^3/uL (150-400)
[2025-05-15 08:00] LABS: Alanine Aminotransferase 32 IU/L (<35); Albumin 4.1 g/dL (3.5-5.0); Albumin Globulin Ratio 1.6 (1.0-2.8); Alkaline Phosphatase 55 U/L (38-126); Blood Urea Nitrogen 17 mg/dL (7-17); Calcium 9.2 mg/dL (8.4-10.2); Carbon Dioxide 26 mmol/L (22-32); Chloride 104 mmol/L (98-107); Estimated Glomerular Filt Rate > 60 mL/min (>60); Globulin 2.6 g/dL (1.7-4.1); Glucose 117 mg/dL (70-99); HEMOLYSIS < 15 (0-50); Potassium 4.3 mmol/L (3.4-5.1); Sodium 138 mmol/L (137-145); Total Protein 6.7 g/dL (6.3-8.2)
[2025-05-15 08:31] LABS: Carcinoembryonic Antigen 3.9 ng/mL (0.1-3.0)
[2025-05-16 06:36] LABS: CA 15-3 39.1 U/mL (0.0-25.0)
== END ==
PROVIDERS: PCP Nurse Practitioner Family; Referring Provider Nurse Practitioner Family; Visit Provider Internal Medicine Medical Oncology
DX: C50.919 Malignant neoplasm of unspecified site of unspecified female breast (principal)
CPT/HCPCS: 36415; 80053; 82378; 85025; 86300

== ENCOUNTER → 2025-06-06 06:47 | Outpatient (CLI) | payer MEDICARE, OTHER, SELFPAY ==
[2025-06-06 07:25] LABS: Add Manual Diff / Slide Review NO; Hematocrit 38.3 % (36-46); Hemoglobin 12.8 g/dL (12.0-16.0); Lymphocytes Absolute Auto 1900 /uL (1100-4500); Mean Corpuscular HGB Conc 33.4 % (30-36); Mean Corpuscular Hemoglobin 35.9 PG (26-34); Mean Corpuscular Volume 107.6 fL (80-100); Platelet Count 180 X10^3/uL (150-400)
[2025-06-06 07:41] LABS: Alanine Aminotransferase 21 IU/L (<35); Albumin 4.3 g/dL (3.5-5.0); Albumin Globulin Ratio 1.5 (1.0-2.8); Alkaline Phosphatase 57 U/L (38-126); Blood Urea Nitrogen 22 mg/dL (7-17); Calcium 9.4 mg/dL (8.4-10.2); Carbon Dioxide 28 mmol/L (22-32); Chloride 105 mmol/L (98-107); Estimated Glomerular Filt Rate > 60 mL/min (>60); Globulin 2.8 g/dL (1.7-4.1); Glucose 143 mg/dL (70-99); HEMOLYSIS < 15 (0-50); Potassium 4.7 mmol/L (3.4-5.1); Sodium 141 mmol/L (137-145); Total Protein 7.1 g/dL (6.3-8.2)
[2025-06-06 08:13] LABS: Carcinoembryonic Antigen 3.6 ng/mL (0.1-3.0)
[2025-06-07 06:36] LABS: CA 15-3 39.6 U/mL (0.0-25.0)
== END ==
PROVIDERS: PCP Nurse Practitioner Family; Referring Provider Internal Medicine Medical Oncology; Visit Provider Internal Medicine Medical Oncology
DX: C50.919 Malignant neoplasm of unspecified site of unspecified female breast (principal)
CPT/HCPCS: 36415; 80053; 82378; 85025; 86300

== ENCOUNTER → 2025-07-04 06:50 | Outpatient (CLI) | payer MEDICARE, OTHER, SELFPAY ==
[2025-07-04 07:49] LABS: Add Manual Diff / Slide Review NO; Hematocrit 36.1 % (36-46); Hemoglobin 12.2 g/dL (12.0-16.0); Lymphocytes Absolute Auto 1800 /uL (1100-4500); Mean Corpuscular HGB Conc 33.9 % (30-36); Mean Corpuscular Hemoglobin 36.3 PG (26-34); Mean Corpuscular Volume 107.1 fL (80-100); Platelet Count 166 X10^3/uL (150-400)
[2025-07-04 08:06] LABS: Alanine Aminotransferase 20 IU/L (<35); Albumin 4.1 g/dL (3.5-5.0); Albumin Globulin Ratio 1.6 (1.0-2.8); Alkaline Phosphatase 58 U/L (38-126); Blood Urea Nitrogen 20 mg/dL (7-17); Calcium 9.5 mg/dL (8.4-10.2); Carbon Dioxide 26 mmol/L (22-32); Chloride 105 mmol/L (98-107); Estimated Glomerular Filt Rate > 60 mL/min (>60); Globulin 2.6 g/dL (1.7-4.1); Glucose 106 mg/dL (70-99); HEMOLYSIS < 15 (0-50); Potassium 4.4 mmol/L (3.4-5.1); Sodium 140 mmol/L (137-145); Total Protein 6.7 g/dL (6.3-8.2)
[2025-07-04 08:35] LABS: Carcinoembryonic Antigen 3.5 ng/mL (0.1-3.0)
[2025-07-05 07:12] LABS: CA 15-3 36.9 U/mL (0.0-25.0)
== END ==
PROVIDERS: PCP Nurse Practitioner Family; Referring Provider Internal Medicine Medical Oncology; Visit Provider Internal Medicine Medical Oncology
DX: C50.919 Malignant neoplasm of unspecified site of unspecified female breast (principal)
CPT/HCPCS: 36415; 80053; 82378; 85025; 86300